=== PATIENT | male | born 1935 | race Caucasian/White ===

== ENCOUNTER 2017-05-18 04:52 | Emergency (ER) | payer MEDICARE, SELFPAY ==
[2017-05-18 04:53] VITALS: BP 163/90; PULSE 68; RESP 20; TEMP 36.5; O2SAT 95; BMI 25.8
[2017-05-18] MEDS: Lidocaine Jelly 2% 20 ML Syringe (URO-JET) 20 APPLIC TOPICAL (05:38)
[2017-05-18 05:39] LABS: International Normalized Ratio 1.1; Prothrombin Time (Protime)PT. 13.7 SECONDS (11.7-14.9)
[2017-05-18 05:40] LABS: Partial Thromboplast Time 29.5 Seconds (24.1-36.2)
[2017-05-18 05:42] LABS: Absolute Lymphocyte Count 1.53 X10^3/ul (0.83-4.51); Absolute Neutrophil Count 4.3 X10^3/uL (2.0-7.7); Basophil# 0.07 X10^3/uL; Eosinophil# 0.19 X10^3/uL; Eosinophils% 2.8 % (0-5); Hematocrit 44.1 % (40-54); Hemoglobin 14.6 g/dl (13.0-16.5); Lymphocyte # 1.53 X10^3/ul (4.0); Lymphocyte % 22.7 % (19-41); Mean Corp Hgb Conc 33.1 g/gl (32-36); Mean Corpuscular Hgb 31.9 pg (27.0-32.0); Mean Corpuscular Volume 96.3 fL (80-94); Mean Platelet Vol. 9.8 fl (6.2-12.0); Monocyte# 0.63 X10^3/uL; Monocyte% 9.3 % (0-10); Neutrophil # 4.29 X10^3/uL (2.7-7.7); Neutrophil % 63.8 % (47-70); Platelet Count 270 K/mm3 (150-450); RBC Distribution Width CV 13.1 % (11.6-14.6); RBC Distribution Width SD 45.3 fl (35.1-43.9); Red Blood Count 4.58 M/mm3 (4.6-6.2); White Blood Count 6.7 K/mm3 (4.4-11.0)
[2017-05-18 05:43] LABS: Anion Gap 7 (5-15); BUN 19 mg/dL (7-18); BUN/Creat Ratio 20.7 RATIO (10-20); Chloride 106 mmol/L (98-107); Creatinine, Serum 0.92 mg/dL (0.70-1.30); EST Glomerular Filtration Rate 84 mL/min (>60); Est Glom Filt Rate - Afr Amer 102 mL/min (>60); Estimated Creatinine Clearance 59.87 ml/min; Glucose 96 mg/dL (74-106); POSITIVE COUNT NO; POSITIVE DIFFERENTIAL NO; POSITIVE MORPHOLOGY NO; Potassium 3.9 mmol/L (3.5-5.1); Sodium Level 140 mmol/L (136-145)
[2017-05-18 06:02] LABS: Bacteria 0 SEEN /hpf (None Seen); Color, Urine Yellow (Yellow); Glucose, Dipstick Normal (Normal); Ketone-Dipstick Negative (Negative); Leukocyte Esterase-Dipstick 500 /ul (Negative); Mucous, Urine 0 SEEN /hpf (<or=2+); Nitrite-Dipstick Positive (Negative); Occult Blood-Urine 250 /ul (Negative); Protein-Dipstick 30 mg/dl (Negative); Squamous Epithelial Cells - UA 0 SEEN /hpf (0-5); Urine Bilirubin Dipstick Negative (Negative); Urine Clarity Cloudy (Clear); Urine Urobilinogen Normal (Normal)
[2017-05-18 06:08] LABS: Red Blood Cells-Urine > 100 SEEN /hpf (0-5); White Blood Cells >100 SEEN /hpf (0-5)
--- NOTE | 2017-05-18 06:08 | ED.RN ---
DR BOONE AWARE THAT THE PT'S URINE WAS NOT BLOODY,BUT CLOUDY WITH MUCUS AND HENSLEY WAS NOT IRRIGATED. WAS OKAY WITH THAT.
--- NOTE | 2017-05-18 06:09 | ED.DCSUM_ITS ---
- ER Visit Summary Date of Service: 05/18/17 Chief Complaint: Hematuria History of Present Illness: The patient is a [address] Andres and Dr. Tristan lizama. He reports that approximately 3:00 this morning he began passing blood and clots in his urine. Reports that he has had this in the past. States that for quite some time he has had to self cath every 4-5 days. Bladder has been draining well. He states that usually he gets 200 250 mL. The past 2 to times he is gotten 100 mL. Last time he self cath was 3 days ago. Patient complains of a dull suprapubic pain is 3 out of 10 severity. No fever, chills, dysuria, frequency, nausea, or vomiting. Physical Examination: Vitals: Stable. Afebrile. General: Well-nourished and well-developed. Head: Normocephalic atraumatic. Neck: Supple, no lymphadenopathy. No JVD. Nontender. Cardiovascular: Regular rate and rhythm. No murmurs. Respiratory: No respiratory distress. Clear to auscultation bilaterally. Abdominal: Soft, nontender, nondistended, normal bowel sounds. No guarding, rebound, or peritoneal signs. Back: Nontender. Extremities: Nontender, no edema. Skin: Normal color, no rash. Neurologic: Alert and oriented ?3. Cranial nerves II through XII are intact. Normal strength and sensation. Psych: Normal affect. Test Results: CBC is normal. Chem-7 is more for BUN of 19. Coags are normal. UA is nitrite positive and has greater than 100 whites and greater than 100 red blood cells. This was sent for culture. Emergency Department Course and Treatment: Patient had a catheter placed. There was no visible blood in his urine. Patient was given Macrobid p.o. Treatment Plan: She was discussed with Dr. Andres. He will be discharged on Macrobid instructed to follow-up 1 week for another exam. Return to the emergency department for any worsening symptoms. Disposition: To home in improved and stable condition. Impression: 1. UTI. This note was generated with [employer] software. It may contain incorrect words, spelling, and punctuation that were not noted in review of the chart prior to signing ED Disposition - Plan for ED Patient: Chief Complaint: Complaint Instructions: ED UTI Cystitis Male Prescriptions: Nitrofurantoin Macrocrystals [Macrobid] 100 mg PO Q12 #14 capsule Referrals: Hay Andres MD [STAFF PHYSICIAN] - 1 Week
[2017-05-18] MEDS: Nitrofurantoin Macrocrystals 100 MG Capsule PO (06:35)
[2017-05-18 06:54] VITALS: BP 167/75; PULSE 66; RESP 18; O2SAT 97
--- NOTE | 2017-05-18 06:54 | ED.RN ---
HENSLEY DCD AFTER EXPLANATION.PT PAL WITHOUT DISTRESS.
== END 2017-05-18 06:55 | disposition home or self-care (01) ==
PROVIDERS: Emergency Provider Emergency Medicine; Family Provider Family Medicine; PCP Family Medicine
DX: N39.0 Urinary tract infection, site not specified (principal); Z79.899 Other long term (current) drug therapy
CPT/HCPCS: 51702; 80048; 81001; 85025; 85610; 85730; 87077; 87086; 87088; 87186; 99285; A4216

== ENCOUNTER 2018-04-10 03:17 | Emergency (ER) | payer MEDICARE, SELFPAY ==
[2018-04-10 03:18] VITALS: BP 174/74; PULSE 72; RESP 18; TEMP 36.5; O2SAT 94; BMI 25.8
--- NOTE | 2018-04-10 04:10 | ED.VISSUMM ---
- ER Visit Summary Date of Service: 04/10/18 Chief Complaint: Urinary retention History of Present Illness: The patient is a 82 M who presents with possible urinary retention. He has a history of BPH. He states he has had previous laser prostate surgery. He recently has been needing to self catheterize more often. He saw Dr. Andres who he did not feel was doing much so sought a second opinion and saw Dr. Bowen. He was then referred to another urologist in [place] for cystoscopy. He seems to be very fixated on his urine volumes. He states that in the office yesterday they did a bladder scan which showed 330 cc. However when he self catheterize at home he only had about 100 cc out. Therefore he has tried to catheterize several times since then and has only had a smaller amount still be retaining a couple of 100 cc. He complains of some mild lower abdominal pressure. Physical Examination: Afebrile vitals unremarkable Moist mucous membranes Heart regular rate and rhythm Lungs clear Abdomen soft nontender nondistended Test Results: Bladder scan shows only 50-70 cc. Emergency Department Course and Treatment: Patient does not appear to be currently retaining significant urine. I did advise that the bladder scanner could have overestimated his bladder volume. He was advised to follow-up as an outpatient. He understands to return for new or worsening symptoms. He was discharged. Treatment Plan: [] Disposition: Discharge Impression: Medical screening exam Concern for medical condition not found (urinary retention- not found) This note was generated with [employer] dictation software. It may contain incorrect words, spelling, and punctuation that were not noted in review of the chart prior to signing ED Disposition - Plan for ED Patient: Chief Complaint: Complaint Referrals: Alfonzo Bond MD [Primary Care Provider] -
--- NOTE | 2018-04-10 04:13 | ED.DCSUM_ITS ---
- ER Visit Summary Date of Service: 04/10/18 Chief Complaint: Urinary retention History of Present Illness: The patient is a 82 M who presents with possible urinary retention. He has a history of BPH. He states he has had previous laser prostate surgery. He recently has been needing to self catheterize more often. He saw Dr. Andres who he did not feel was doing much so sought a second opinion and saw Dr. Bowen. He was then referred to another urologist in [place] for cystoscopy. He seems to be very fixated on his urine volumes. He states that in the office yesterday they did a bladder scan which showed 330 cc. However when he self catheterize at home he only had about 100 cc out. Therefor e he has tried to catheterize several times since then and has only had a smaller amount still be retaining a couple of 100 cc. He complains of some mild lower abdominal pressure. Physical Examination: Afebrile vitals unremarkable Moist mucous membranes Heart regular rate and rhythm Lungs clear Abdomen soft nontender nondistended Test Results: Bladder scan shows only 50-70 cc. Emergency Department Course and Treatment: Patient does not appear to be currently retaining significant urine. I did advise that the bladder scanner could have overestimated his bladder volume. He was advised to follow-up as an outpatient. He understands to return for new or worsening symptoms. He was discharged. Treatment Plan: [] Disposition: Discharge Impression: Medical screening exam Concern for medical condition not found (urinary retention- not found) This note was generated with [employer] dictation software. It may contain incorrect words, spelling, and punctuation that were not noted in review of the chart prior to signing ED Disposition - Plan for ED Patient: Chief Complaint: Complaint Referrals: Alfonzo Bond MD [Primary Care Provider] -
--- NOTE | 2018-04-10 04:13 | ED.DEP ---
ED Disposition - Plan for ED Patient: Chief Complaint: Complaint Instructions: ED Retention Urinary Male Referrals: Alfonzo Bond MD [Primary Care Provider] -
== END 2018-04-10 04:27 | disposition home or self-care (01) ==
LOC: ED 03:58
PROVIDERS: Emergency Provider Emergency Medicine; Family Provider Family Medicine; PCP Family Medicine
DX: Z71.1 Person with feared health complaint in whom no diagnosis is made (principal)
CPT/HCPCS: 99282

== ENCOUNTER 2018-09-24 22:47 | Emergency (ER) | payer MEDICARE, SELFPAY ==
[2018-06-24 13:48] VITALS: BMI 25.8
[2018-09-24 22:48] VITALS: BP 158/93; PULSE 73; RESP 16; TEMP 36.6; O2SAT 95; BMI 26.6
--- NOTE | 2018-09-24 23:56 | ED.VISSUMM ---
- ER Visit Summary Date of Service: 09/24/18 Chief Complaint: Foreign body sensation right eye History of Present Illness: The patient is a 82 M who presents with a foreign body sensation in his right eye. He was using a wire brush to remove rust off of a piece of metal. He does wear glasses. He felt like something in his eye but as symptoms continued he presented here for evaluation. He states he has a history of metallic foreign body that required removal. He otherwise has no complaints. He does have some mild blurry vision. Physical Examination: Afebrile vitals unremarkable Normal conjunctive a under gross examination as well as examination using slit-lamp the eyelids were everted there is no foreign body slit-lamp examination with fluorescein shows punctate dye uptake at approximately the 4 to 5 o'clock position on the cornea I do not appreciate any foreign body Extraocular motion intact without pain or palsy Anterior chamber deep and quiet Test Results: Slit-lamp examination as above Emergency Department Course and Treatment: Patient does have a tiny corneal abrasion. We will treat with bacitracin. He was advised that if symptoms continue he should follow-up as an outpatient. He understands to return for new or worsening symptoms. Patient discharged. Treatment Plan: [] Disposition: Discharge Impression: Corneal abrasion This note was generated with [employer] dictation software. It may contain incorrect words, spelling, and punctuation that were not noted in review of the chart prior to signing ED Disposition - Plan for ED Patient: Referrals: Alfonzo Bond MD [Primary Care Provider] -
--- NOTE | 2018-09-24 23:58 | ED.DEP ---
ED Disposition - Plan for ED Patient: Instructions: Corneal Abrasion Referrals: Alfonzo Bond MD [Primary Care Provider] -
[2018-09-25] MEDS: Fluorescein 1 MG STRIP 1 STRIP RIGHT EYE (00:19)
[2018-09-25] MEDS: Tetracaine 0.5% Ophthalmic Bottle 1 DRP RIGHT EYE (00:19)
[2018-09-25 00:21] VITALS: BP 162/75; PULSE 66; O2SAT 95
== END 2018-09-25 00:22 | disposition home or self-care (01) ==
LOC: ED 23:11
PROVIDERS: Emergency Provider Emergency Medicine; Family Provider Family Medicine; PCP Family Medicine
DX: S05.01XA Injury of conjunctiva and corneal abrasion without foreign body, right eye, initial encounter (principal); X58.XXXA Exposure to other specified factors, initial encounter; Y93.9 Activity, unspecified; Y92.9 Unspecified place or not applicable; Y99.9 Unspecified external cause status
CPT/HCPCS: 99283

== ENCOUNTER 2018-12-10 11:19 | Emergency (ER) | payer MEDICARE, SELFPAY ==
[2018-12-10 11:20] VITALS: BP 148/74; PULSE 82; RESP 16; TEMP 36.6; O2SAT 95; BMI 25.9
--- NOTE | 2018-12-10 12:17 | RAD_ITS ---
STUDY: X-RAY - PELVIS AND LEFT HIP REASON FOR EXAM: Male, 83 years old. Increasing pain. No known injury. TECHNIQUE: 3 views of the pelvis and hip. COMPARISON: None. FINDINGS: There is a non-specific bowel gas pattern. Findings suggestive of a prior bilateral inguinal hernia repair. Normal bilateral iliac wings, sacroiliac joints and visualized sacrum. Normal bilateral superior and inferior pubic rami. Normal pubic symphysis. Normal bilateral ischial tuberosities. Normal visualized femoral head. Normal acetabulum. Normal hip joint. Degenerative changes in the lower lumbar spine. RAD/HIP, UNI W/ Pelvis 2-3 Views IMPRESSION: No acute adenopathy is seen. Electronically Signed: Baldomero Nolasco, at 13:17 EDT , Service support ,
--- NOTE | 2018-12-10 13:32 | ED.DCSUM_ITS ---
- ER Visit Summary Date of Service: 12/10/18 Chief Complaint: [Left hip pain] History of Present Illness: The patient is a 83 M [presents the emergency department with pain in his left hip that has had off-and-on for about a year. Patient states that last night he was getting in the bed when he felt a pop in his hip and his actually heard it as well. Patient is complaining of pain with ambulation. At rest he really does not have any pain. Pain mostly with walking or certain movements. Patient states that he has had sciatic nerve issues typically associated with his left side for many years. She is still able to ambulate today but painful. Eyes weakness the extremities. Patient denies any change in bowel or bladder function.] Physical Examination: [HEENT-PERRLA, EOMI. Cranial nerves II through XII grossly intact. TMs clear. Mucous membranes moist. No adenopathy. Cardiovascular-regular rate and rhythm without murmur or ectopy Lungs-clear to auscultation, chest wall stable without crepitus or subcu emphysema Abdomen-normoactive bowel sounds, soft, nontender, no rebound or rigidity, no peritoneal signs. Back exam-no significant tenderness on exam of the lumbar spine or lumbar paraspinal musculature. Extremities-intact ?4, normal range of motion, normal pulses, atraumatic. Left hip-no erythema or warmth noted. Patient has negative straight leg raises. No pain with logrolling. Patient has mild tenderness over the left piriformis muscle. Deep tendon reflexes are plus 2 out of 4 bilaterally at the patella and Achilles. Patient has normal 5 extension bilaterally.] Test Results: [X-rays of the left hip and pelvis obtained were unremarkable.] Emergency Department Course and Treatment: [] Treatment Plan: [Will be treated with [place] for pain and also will be started on a Medrol Dosepak. I suspect likely soft tissue sprain or strain. She will be referred to orthopedics for follow-up.] Disposition: [Discharged home in stable condition.] Impression: [Left hip strain] This note was generated with [employer] software. It may contain incorrect words, spelling, and punctuation that were not noted in review of the chart prior to signing ED Disposition - Plan for ED Patient: Referrals: Alfonzo Bond MD [Primary Care Provider] -
--- NOTE | 2018-12-10 13:35 | DCINST.ED_ITS ---
ED Disposition - Plan for ED Patient: Instructions: Hip Strain Prescriptions: MethylPREDNISolone DosePak [Medrol DosePak] 4 mg PO UD #1 box Prescription Printed Hydrocodone Bitart/Apap 5-325 [[place] 5MG-325MG] 1 tab PO Q4H PRN PRN 2 Days #14 tab PRN Reason: Pain Prescription Printed Referrals: Alfonzo Bond MD [Primary Care Provider] - Gurwinder Glover MD [STAFF PHYSICIAN] - 3-5 Days
== END 2018-12-10 13:45 | disposition home or self-care (01) ==
LOC: ED 13:08
PROVIDERS: Emergency Provider Emergency Medicine; Family Provider Family Medicine; PCP Family Medicine
DX: S76.012A Strain of muscle, fascia and tendon of left hip, initial encounter (principal); X58.XXXA Exposure to other specified factors, initial encounter; Y93.9 Activity, unspecified; Y92.9 Unspecified place or not applicable; Y99.9 Unspecified external cause status; Z87.891 Personal history of nicotine dependence
CPT/HCPCS: 73502; 99282

== ENCOUNTER → 2019-04-05 16:50 | Outpatient (CLI) | payer MEDICARE, SELFPAY ==
--- NOTE | 2019-04-05 16:52 | CT_ITS ---
STUDY: CT CHEST WITHOUT CONTRAST REASON FOR EXAM: Male, 83 years old. Pulmonary nodule RADIATION DOSAGE (If Supplied By Facility): CTDIvol = ( 10.90 ) mGy, DLP = ( 370.57 ) mGycm TECHNIQUE: Transaxial imaging was performed without the administration of intravenous contrast material. Individualized dose optimization techniques were used for this CT. COMPARISON: None. FINDINGS: There is a 6.8 mm, noncalcified, pleural-based nodule within the anterior inferior right middle lobe, sequence 4, image 92. There is diffuse, centrilobular emphysema with hyperexpansion. There is mild bibasilar dependent atelectasis. There is a approximately 1.1 cm region of focal, ill-defined, groundglass opacity within the lateral basal segment left lower lobe, sequence 4, image 88. There is adjacent/surrounding vague alveolar opacification. Linear density originating from this finding extends to touch the nonthickened posterolateral pleura. There is a 1.2 cm, peripheral, pleural-based pneumatocele versus pulmonary cyst within the posterior medial left lower lobe, sequence 4, image 81. There is no pleural effusion. There is no pneumothorax. Normal heart and pericardium. There are a few, scattered, multistation mediastinal lymph nodes. Some are partially fatty replaced. None appear Pathologic by application of strict size criteria. There is no pathologic hilar adenopathy on this nonenhanced exam. Normal unenhanced pulmonary arteries. Multifocal calcified plaque is seen throughout the aorta. There is no acute osseous abnormality. There is no suspicious lytic or blastic osseous finding. Throughout the upper abdomen the only finding demonstrated is nonspecific mild perinephric stranding, probably age-related. CT/Chest without Contrast IMPRESSION: Centrilobular emphysema. Mild bibasilar dependent atelectasis versus pleural-parenchymal fibrosis. Nonspecific, subcentimeter, noncalcified, pleural-based right middle lobe nodule. Please see above. Finding involving the lateral basal segment of the left lower lobe appears consistent with focal fibrosis. An aggressive process is not excluded. Follow-up is therefore highly recommended. No pleural effusion. No pneumothorax. No pathologic adenopathy identified. Recommendation: I recommend follow-up in 3-6 months to document stability. Electronically Signed: Gio Marie MD at 9:40 EST , Service support ,
== END ==
PROVIDERS: Family Provider Family Medicine; PCP Family Medicine; Referring Provider Family Medicine; Visit Provider Family Medicine
DX: R91.1 Solitary pulmonary nodule (principal)
CPT/HCPCS: 71250

== ENCOUNTER 2019-04-25 06:19 | Emergency (ER) | payer MEDICARE, SELFPAY ==
[2019-04-25 06:20] VITALS: PULSE 80; RESP 16; TEMP 36.3; O2SAT 97; BMI 24.7
[2019-04-25 06:24] VITALS: BP 159/85
--- NOTE | 2019-04-25 06:50 | ED.VISSUMM ---
- ER Visit Summary Date of Service: 04/25/19 Chief Complaint: [Concern for possible urinary tract infection.] History of Present Illness: The patient is a 83 M [presents to the emergency department with complaint of pressure in his bladder. Patient states that normally he has to cath himself about once a week but over the last several days he has been doing it every 2 days or so. Patient feels like he has been drinking a lot of water but not making as much urine and when he caths himself today he noted that the urine appeared cloudy. Patient is concerned that he may have a urinary tract infection. Other than his bladder not working right patient states he really has no medical history. He has had no fevers. He has had no vomiting.] Physical Examination: [HEENT-PERRLA, EOMI. Cranial nerves II through XII grossly intact. TMs clear. Mucous membranes moist. No adenopathy. Cardiovascular-regular rate and rhythm without murmur or ectopy Lungs-clear to auscultation, chest wall stable without crepitus or subcu emphysema Abdomen-normoactive bowel sounds, soft. Patient has some mild suprapubic tenderness on palpation. There is no rebound, rigidity, or pedal signs. Extremities-intact ?4, normal range of motion, normal pulses, atraumatic] Test Results: [Bladder scan obtained showed 190 cc of urine.] CBC with differential obtained showing a 5.7, hemoglobin 14.7, hematocrit 44, platelets 244. Chemistries unremarkable. Urinalysis was positive for 500 leukocyte esterase as well as nitrites and 25-50 WBCs and +1 bacteria. Emergency Department Course and Treatment: [Patient received Rocephin 1 g IV as well as 1 dose of Azo p.o.] Treatment Plan: [Patient will be treated with Bactrim and Pyridium. Patient had a urine culture sent. Patient vies to follow-up with primary care physician or his urologist in 3 to 5 days.] Disposition: [Discharged home in stable condition] Impression: [Urinary tract infection] This note was generated with [employer] software. It may contain incorrect words, spelling, and punctuation that were not noted in review of the chart prior to signing ED Disposition - Plan for ED Patient: Referrals: Jasvir Brock MD [Primary Care Provider] -
[2019-04-25 06:52] LABS: Mucous, Urine 0 SEEN /hpf (<or=2+)
[2019-04-25 06:55] LABS: Absolute Lymphocyte Count 1.15 X10^3/uL (0.83-4.51); Absolute Neutrophil Count 3.9 X10^3/uL (2.0-7.7); Basophil# 0.06 X10^3/uL; Eosinophil# 0.11 X10^3/uL; Eosinophils% 1.9 % (0-5); Hematocrit 44.1 % (40-54); Hemoglobin 14.7 g/dL (13.0-16.5); Lymphocyte # 1.15 X10^3/ul (4.0); Mean Corp Hgb Conc 33.3 g/dL (32-36); Mean Corpuscular Hgb 32.1 pg (27.0-32.0); Mean Corpuscular Volume 96.3 fL (80-94); Mean Platelet Vol. 9.5 fl (6.2-12.0); Monocyte# 0.53 X10^3/uL; Monocyte% 9.2 % (0-10); NRBC Flagged by Analyzer 0 % (0-5); Neutrophil # 3.85 X10^3/uL (2.7-7.7); Neutrophil % 67.2 % (47-70); Platelet Count 244 K/mm3 (150-450); RBC Distribution Width CV 12.3 % (11.6-14.6); RBC Distribution Width SD 43.8 fl (35.1-43.9); Red Blood Count 4.58 M/mm3 (4.6-6.2); White Blood Count 5.7 K/mm3 (4.4-11.0)
[2019-04-25 07:08] LABS: Anion Gap 6 (5-15); BUN 24 mg/dL (7-18); BUN/Creat Ratio 23.1 RATIO (10-20); Chloride 108 mmol/L (98-107); Creatinine, Serum 1.04 mg/dL (0.70-1.30); EST Glomerular Filtration Rate 73 mL/min (>60); Est Glom Filt Rate - Afr Amer 88 mL/min (>60); Estimated Creatinine Clearance 52.98 ml/min; Glucose 99 mg/dL (74-106); Sodium Level 140 mmol/L (136-145)
[2019-04-25 07:10] LABS: Color, Urine Yellow (Yellow); Glucose, Dipstick Normal (Normal); Ketone-Dipstick Negative (Negative); Leukocyte Esterase-Dipstick 500 /ul (Negative); Nitrite-Dipstick Positive (Negative); Occult Blood-Urine 25 /ul (Negative); Protein-Dipstick 30 mg/dl (Negative); Urine Bilirubin Dipstick Negative (Negative); Urine Clarity Clear (Clear); Urine Urobilinogen Normal (Normal)
[2019-04-25 07:17] LABS: Red Blood Cells-Urine 10-25 SEEN /hpf (0-5); White Blood Cells 25-50 SEEN /hpf (0-5)
[2019-04-25 07:18] LABS: Bacteria 1+ /hpf (None Seen); Squamous Epithelial Cells - UA 0-5 SEEN /hpf (0-5)
--- NOTE | 2019-04-25 07:21 | DCINST.ED_ITS ---
ED Disposition - Plan for ED Patient: Instructions: Bladder Infection, Male (Adult) Prescriptions: Smz/Tmp Ds [Bactrim Ds] 1 tab PO BID #14 tab [facility]: [id number] Phenazopyridine HCl [Pyridium] 200 mg PO BID PRN PRN #10 tab PRN Reason: Pain Transmission Status[id number] Referrals: Jasvir Brock MD [Primary Care Provider] - 3-5 Days Hay Andres MD [STAFF PHYSICIAN] - 3-5 Days
[2019-04-25] MEDS: Ceftriaxone 1 GM/50 ML BAG IV (07:36)
[2019-04-25] MEDS: Phenazopyridine 95 MG Tablet 190 MG PO (07:40)
[2019-04-25 07:52] VITALS: PULSE 78; RESP 16; O2SAT 100
== END 2019-04-25 07:53 | disposition home or self-care (01) ==
LOC: ED 06:55
PROVIDERS: Emergency Provider Emergency Medicine; PCP Family Medicine
DX: N39.0 Urinary tract infection, site not specified (principal)
CPT/HCPCS: 80048; 81001; 85025; 87086; 87088; 87186; 96365; 99284; A4216

== ENCOUNTER → 2019-06-30 11:48 | Outpatient (CLI) | payer MEDICARE, SELFPAY ==
--- NOTE | 2019-06-30 11:51 | RAD_ITS ---
STUDY: X-RAY CHEST REASON FOR EXAM: Male, 83 years old. COPD exacerbation -- back pain TECHNIQUE: PA and lateral views of the chest. COMPARISON: None. FINDINGS: There is hyperinflation of the lungs consistent with chronic obstructive lung disease (COPD). There is no demonstrated pleural abnormality. Normal size heart. Normal mediastinum and mercy. Normal visualized pulmonary arteries. There is atherosclerotic calcification of the aortic arch with tortuosity. There are degenerative changes of the visualized thoracic spine. Normal visualized ribs, clavicles, and shoulders. There is no demonstrated abnormality of the visualized soft tissue structures of the upper abdomen. RAD/Chest PA and Lateral IMPRESSION: Hyperinflation. Electronically Signed: Baldomero Nolasco, at 15:51 EDT , Service support ,
== END ==
PROVIDERS: PCP Family Medicine; Referring Provider Family Medicine; Visit Provider Family Medicine
DX: J44.1 Chronic obstructive pulmonary disease with (acute) exacerbation (principal)
CPT/HCPCS: 71046

== ENCOUNTER → 2019-09-22 11:15 | Outpatient (CLI) | payer MEDICARE, SELFPAY ==
--- NOTE | 2019-09-22 11:18 | RAD_ITS ---
STUDY: X-RAY - LEFT ANKLE REASON FOR EXAM: Male, 83 years old. PAIN STARTED IN MEDIALLY LEFT HEEL AND KNOW IS WORKING AROUND TO LEFT ANKLE MEDIALLY FOR A COUPLE OF MONTHS NOW. NO KNOWN INJURY. TECHNIQUE: 4 view(s) of the ankle. COMPARISON: None. FINDINGS: There is remote nonunited small avulsion fracture of the medial malleolus tip. Remainder of the bones are intact and located. Joint spaces preserved. Soft tissues are unremarkable. RAD/Ankle min 3 Views IMPRESSION: Small remote nonunited medial malleolar fracture. Electronically Signed: Maggi Marc, at 16:51 EDT Tel , Service support ,
== END ==
PROVIDERS: PCP Family Medicine; Referring Provider Family Medicine; Visit Provider Family Medicine
DX: M25.572 Pain in left ankle and joints of left foot (principal)
CPT/HCPCS: 73610

== ENCOUNTER 2019-10-09 15:01 | Emergency (ER) | payer MEDICARE, SELFPAY ==
[2019-10-09 15:02] VITALS: BP 156/80; PULSE 77; RESP 18; TEMP 36.6; O2SAT 96; BMI 25.0
--- NOTE | 2019-10-09 15:15 | CT_ITS ---
STUDY: CT ABDOMEN AND PELVIS WITHOUT CONTRAST REASON FOR EXAM: Male, 83 years old. Right-sided flank pain RADIATION DOSAGE (If Supplied By Facility): CTDIvol = ( 8.76 ) mGy, DLP = ( 404.87 ) mGycm TECHNIQUE: Transaxial images were obtained from the dome of the diaphragm to the symphysis pubis without oral contrast, and without intravenous contrast. Sagittal and coronal images were reconstructed. Individualized dose optimization techniques were used for this CT. COMPARISON: None. FINDINGS: The visualized portions of lung bases demonstrate COPD changes. There is mild stranding/scarring worse in the left lower lung. The visualized portions of the heart are within normal limits. Normal liver. There is no evidence of gallstones. There is questionable small tiny calcification or stone in the common hepatic duct measuring about 1 or 2 mm. Normal spleen. Normal pancreas. Normal bilateral adrenal glands. There is mild bilateral perinephric stranding. There are small bilateral renal cysts in the lower pole, the largest of the left side measuring about 2.2 cm. There is no evidence of hydronephrosis no abnormal calcifications are seen in the kidneys or the expected courses of the ureters bilaterally. Normal visualized stomach. There are nonspecific fluid-filled small bowel loops on the left side of the abdomen. There is no evidence of bowel obstruction. There is diverticulosis of the colon. There is no evidence of acute diverticulitis. The colon is suboptimally distended. The appendix is visualized and appears normal. There is diffuse atherosclerotic calcification of the abdominal aorta with elongation and tortuosity, but without a demonstrated aneurysm. Normal inferior vena cava. Normal retroperitoneum. There is focal bulging of the right lateral wall of the bladder which may be due to small bladder diverticulum. There are prostatic calcifications. Metallic clips are seen in the lower anterior abdominal wall about the level of the symphysis pubis. There are diffuse degenerative changes of the visualized lumbar spine. CT/Abdomen/Pelvis without Cont IMPRESSION: 1. Nonspecific bilateral perinephric stranding without evidence of hydronephrosis or ureteral stones. The findings can be seen in pyelonephritis. 2. Small bilateral renal cysts. 3. Diverticulosis without evidence of acute diverticulitis. 4. No evidence of acute appendicitis. 5. Questionable small tiny calcification in the region of the common hepatic duct. Electronically Signed: Samuel Gustafson MD at 16:37 EDT Tel , Service support ,
--- NOTE | 2019-10-09 15:16 | ED.VIS.GEN ---
History of Present Illness Chief Complaint: Flank Pain Informant: Patient Onset: Today Context: Gradual Onset Current Severity: Mild Maximum Severity: Moderate Narrative: Patient presents secondary to right flank pain. He points to the right lower flank and states it wraps into the right lower quadrant of his abdomen. Pain was present when he woke this morning. He denies any recent injury or change in activity. He did have similar pain about a week ago that spontaneously resolved. He denies urinary symptoms. He is concerned because his brother had similar symptoms and had appendicitis. Patient does report history of BPH. He does intermittently self cath. He denies fever or dysuria. - Past Medical History (1) GERD (gastroesophageal reflux disease) Status: Chronic (2) BPH (benign prostatic hyperplasia) Status: Chronic Past Medical History - Allergies and Home Meds Allergies/Adverse Reactions: Allergies ciprofloxacin [From Cipro] Allergy (Unknown, Verified 10/09/19 15:04) unknown bee venom protein (honey bee) Allergy (Verified 10/09/19 15:04) Other Primary Care Physician: Jasvir Brock MD [Primary Care Provider] - Prior records reviewed: Yes Lives: Spouse/ Significant Other Smoking Status: Former smoker Review of Systems General: Denies: Chills, Fever Eyes: Denies: Visual changes - bilaterally ENT: Denies: Bilateral ear pain Cardiovascular: Denies: Chest pain Respiratory: Denies: Dyspnea, Cough Gastrointestinal: Reports: Abdominal pain. Denies: Nausea, Vomiting, Diarrhea Genitourinary: Denies: Dysuria, Frequency Musculoskeletal: Denies: Swelling, Extremity Pain Neurological: Denies: Headache Hematologic: Denies: Easy bruising, Easy bleeding Allergy: Denies: Uticaria Physical Exam Vital Signs/Narrative: Vital Signs Temp Pulse Resp BP Pulse Ox 10/09/19 15:02 98 F 77 18 156/80 H 96 Inital Vital Signs reviewed: Yes General: Well nourished, Well developed Head: Normocephalic ENT: Moist mucous membranes Neck: Supple Cardiovascular: Regular rate, Regular rhythm Respiratory: No distress, CTA bilaterally Abdomen: Soft, Nontender, Hypoactive bowel sounds Back: - - Tenderness in the right lateral lumbar paraspinal region. No overlying skin changes. Extremities: Nontender Skin: Normal color Neurological: Alert, Oriented x3 Psychological: Normal affect Diagnostic/Tx/Re-eval Impressions Abdomen/Pelvis CT 10/09/19 15:15 IMPRESSION: 1. Nonspecific bilateral perinephric stranding without evidence of hydronephrosis or ureteral stones. The findings can be seen in pyelonephritis. 2. Small bilateral renal cysts. 3. Diverticulosis without evidence of acute diverticulitis. 4. No evidence of acute appendicitis. 5. Questionable small tiny calcification in the region of the common hepatic duct. Electronically Signed: Samuel Gustafson MD at 16:37 EDT Tel , Service support , 10/09/19 15:15 Abdomen/Pelvis without Cont [CT] Stat Laboratory Results 10/09/19 10/09/19 10/09/19 15:45 15:45 15:53 WBC 8.0 RBC 4.51 L Hgb 14.3 Hct 44.0 MCV 97.6 H MCH 31.7 MCHC 32.5 RDW Std Deviation 46.3 H RDW Coeff of Isiah 13.1 Plt Count 248 MPV 9.9 Immature Gran % (Auto) 0.300 Neut % (Auto) 72.3 H Lymph % (Auto) 17.3 L [place] % (Auto) 7.9 Eos % (Auto) 1.4 Baso % (Auto) 0.8 Absolute Neuts (auto) 5.8 Absolute Lymphs (auto) 1.38 Nucleated RBC % 0 Sodium 139 Potassium 3.9 Chloride 109 H Carbon Dioxide 26.0 Anion Gap 4 L BUN 30 H Creatinine 0.92 Estim Creat Clear Calc 57.88 Est GFR (MDRD) Af Amer 101 Est GFR (MDRD) Non-Af 83 BUN/Creatinine Ratio 32.5 H Glucose 99 Calcium 8.7 Urine Color Yellow Urine Clarity Sl. Cloudy Urine pH 5.0 Ur Specific [place] 1.020 Urine Protein Negative Urine Glucose (UA) Normal Urine Ketones Negative Urine Occult Blood 10 H Urine Nitrite Negative Urine Bilirubin Negative Urine Urobilinogen Normal Ur Leukocyte Esterase 100 H Urine RBC 0-5 SEEN Urine WBC 25-50 SEEN Ur Squamous Epith Cells 0-5 SEEN Urine Bacteria 0 SEEN Urine Mucus 0 SEEN - Medical Decision Making Patient declined anything for pain while here. Test results are discussed with patient and at bedside. He does have some white blood cells noted, however 0 bacteria are noted. This may be inflammatory change from periodic self cath. Patient is reassured that there is no sign of appendicitis or kidney stone. He will continue to monitor his symptoms and return if worsened. ED Disposition - Plan for ED Patient: Disposition: Home or Assisted Living Diagnosis: Flank pain Instructions: ED Flank Pain Uncertain Cause Referrals: Jasvir Brock MD [Primary Care Provider] - 3-5 Days if not improving
[2019-10-09 15:50] LABS: Absolute Lymphocyte Count 1.38 X10^3/uL (0.83-4.51); Absolute Neutrophil Count 5.8 X10^3/uL (2.0-7.7); Basophil# 0.06 X10^3/uL; Basophil% 0.8 % (0-1); Eosinophil# 0.11 X10^3/uL; Eosinophils% 1.4 % (0-5); Hemoglobin 14.3 g/dL (13.0-16.5); Lymphocyte # 1.38 X10^3/ul (4.0); Lymphocyte % 17.3 % (19-41); Mean Corp Hgb Conc 32.5 g/dL (32-36); Mean Corpuscular Hgb 31.7 pg (27.0-32.0); Mean Corpuscular Volume 97.6 fL (80-94); Mean Platelet Vol. 9.9 fl (6.2-12.0); Monocyte# 0.63 X10^3/uL; Monocyte% 7.9 % (0-10); NRBC Flagged by Analyzer 0 % (0-5); Neutrophil % 72.3 % (47-70); Platelet Count 248 K/mm3 (150-450); RBC Distribution Width CV 13.1 % (11.6-14.6); RBC Distribution Width SD 46.3 fl (35.1-43.9); Red Blood Count 4.51 M/mm3 (4.6-6.2)
[2019-10-09 16:02] LABS: Bacteria 0 SEEN /hpf (None Seen); Mucous, Urine 0 SEEN /hpf (<or=2+)
[2019-10-09 16:03] LABS: Anion Gap 4 (5-15); BUN 30 mg/dL (7-18); BUN/Creat Ratio 32.5 RATIO (10-20); Calcium,Total 8.7 mg/dL (8.5-10.1); Chloride 109 mmol/L (98-107); Creatinine, Serum 0.92 mg/dL (0.70-1.30); EST Glomerular Filtration Rate 83 mL/min (>60); Est Glom Filt Rate - Afr Amer 101 mL/min (>60); Estimated Creatinine Clearance 57.88 ml/min; Glucose 99 mg/dL (74-106); Potassium 3.9 mmol/L (3.5-5.1); Sodium Level 139 mmol/L (136-145)
[2019-10-09 16:09] LABS: Color, Urine Yellow (Yellow); Glucose, Dipstick Normal (Normal); Ketone-Dipstick Negative (Negative); Leukocyte Esterase-Dipstick 100 /ul (Negative); Nitrite-Dipstick Negative (Negative); Occult Blood-Urine 10 /ul (Negative); Protein-Dipstick Negative (Negative); Urine Bilirubin Dipstick Negative (Negative); Urine Clarity Sl. Cloudy (Clear); Urine Urobilinogen Normal (Normal)
[2019-10-09 16:17] LABS: Red Blood Cells-Urine 0-5 SEEN /hpf (0-5); Squamous Epithelial Cells - UA 0-5 SEEN /hpf (0-5); White Blood Cells 25-50 SEEN /hpf (0-5)
[2019-10-09 16:19] VITALS: BP 156/80; PULSE 77; RESP 18; TEMP 36.6; O2SAT 96
[2019-10-09 17:28] VITALS: BP 156/82; PULSE 68; RESP 18; TEMP 37; O2SAT 98
== END 2019-10-09 17:30 | disposition home or self-care (01) ==
PROVIDERS: Emergency Provider Emergency Medicine; PCP Family Medicine
DX: R10.31 Right lower quadrant pain (principal); Z87.891 Personal history of nicotine dependence
CPT/HCPCS: 74176; 80048; 81001; 85025; 99283; A4216

== ENCOUNTER → 2019-11-11 10:19 | Outpatient (CLI) | payer MEDICARE, SELFPAY ==
[2019-11-11 12:51] LABS: Absolute Lymphocyte Count 1.25 X10^3/uL (0.83-4.51); Basophil# 0.07 X10^3/uL; Basophil% 1.1 % (0-1); Eosinophil# 0.16 X10^3/uL; Eosinophils% 2.6 % (0-5); Hematocrit 44.4 % (40-54); Hemoglobin 14.1 g/dL (13.0-16.5); Lymphocyte # 1.25 X10^3/ul (4.0); Lymphocyte % 20.5 % (19-41); Mean Corp Hgb Conc 31.8 g/dL (32-36); Mean Corpuscular Hgb 31.8 pg (27.0-32.0); Mean Platelet Vol. 10.6 fl (6.2-12.0); Monocyte# 0.62 X10^3/uL; Monocyte% 10.2 % (0-10); NRBC Flagged by Analyzer 0 % (0-5); Neutrophil # 3.96 X10^3/uL (2.7-7.7); Neutrophil % 64.9 % (47-70); Platelet Count 261 K/mm3 (150-450); RBC Distribution Width CV 13.3 % (11.6-14.6); RBC Distribution Width SD 48.9 fl (35.1-43.9); Red Blood Count 4.44 M/mm3 (4.6-6.2); White Blood Count 6.1 K/mm3 (4.4-11.0)
[2019-11-11 12:52] LABS: Erythrocyte Sedimentation Rate 23 mm/hr (0-20)
[2019-11-11 13:11] LABS: Albumin, Serum 3.6 g/dL (3.2-5.0); BUN 29 mg/dL (7-18); BUN/Creat Ratio 32.6 RATIO (10-20); Creatinine, Serum 0.89 mg/dL (0.70-1.30); EST Glomerular Filtration Rate 87 mL/min (>60); Est Glom Filt Rate - Afr Amer 105 mL/min (>60); Glucose 97 mg/dL (74-106); Protein, Total 7.7 g/dL (6.4-8.2)
[2019-11-11 13:12] LABS: ALB/GLOB Ratio 0.9 RATIO (0.9-2.4); AST(SGOT) 25 U/L (15-37); Alanine Aminotransfer ALT/SGPT 26 U/L (16-61); Alkaline Phosphatase 54 U/L (45-117); Anion Gap 4 (5-15); Calcium,Total 9.1 mg/dL (8.5-10.1); Chloride 108 mmol/L (98-107); Globulin 4.1 g/dL (2.2-4.2); PSA,Total - Annual Screen 9.12 ng/mL (0.00-4.00); Potassium 4.1 mmol/L (3.5-5.1); Sodium Level 141 mmol/L (136-145); Thyroid Stim Hormone (TSH) 1.45 uIU/mL (0.358-3.74)
== END ==
PROVIDERS: PCP Family Medicine; Referring Provider Family Medicine; Visit Provider Family Medicine
DX: R63.4 Abnormal weight loss (principal); Z12.5 Encounter for screening for malignant neoplasm of prostate
CPT/HCPCS: 36415; 80053; 84153; 84443; 85025; 85652; 86140; G0103

== ENCOUNTER → 2019-12-29 | Outpatient (CLI) | payer MEDICARE, SELFPAY | END | disposition home or self-care (01) | LOC: LABSPEC 11:47 | PROVIDERS: PCP Family Medicine; Referring Provider Nurse Practitioner Adult Health; Visit Provider Nurse Practitioner Adult Health | DX: R30.0 Dysuria (principal) | CPT/HCPCS: 87077; 87086; 87088; 87186 ==

== ENCOUNTER 2020-01-09 06:15 | Inpatient (IN) | payer MEDICARE, SELFPAY ==
[2020-01-09] VITALS (37 sets, daily range): BP systolic 137–171; BP diastolic 7–136; PULSE 55–80; RESP 12–96; TEMP 36.2–36.8; O2SAT 93–100; BMI 25.2; BMI 25.3
--- NOTE | 2020-01-09 06:18 | CT_ITS ---
We are attempting to reach an attending provider to discuss findings. An addendum with communication details will be sent when the communication is complete. STUDY: CT BRAIN WITHOUT CONTRAST REASON FOR EXAM: Male, 84 years old. Stroke, left-sided deficit, weakness. RADIATION DOSAGE (If Supplied By Facility): CTDIvol = ( 44.99 ) mGy, DLP = ( 796.11 ) mGycm TECHNIQUE: Transaxial CT imaging of the brain was performed without administration of intravenous contrast material. Individualized dose optimization techniques were used for this CT. COMPARISON: No relevant priors. FINDINGS: Normal soft tissue structures. Normal calvarium. Normal size ventricles and extra-axial spaces for the patient''s age. Normal white matter tracts of the cerebral hemispheres. Small old lacunar infarction head of the caudate nucleus on the right. Normal thalami. Normal brainstem. Normal cerebellum. There is no intracranial hemorrhage. There are no findings of an acute ischemic infarction. Normal visualized paranasal sinuses. CT/Brain/Head without Contrast IMPRESSION: No acute intracranial abnormality. Old right basal ganglia lacunar infarction. If there is a high clinical suspicion of an acute infarction and further imaging is warranted, recommend MRI. Electronically Signed: Haroon Shah MD at 6:35 EDT , Service support ,
--- NOTE | 2020-01-09 06:18 | RAD_ITS ---
STUDY: X-RAY CHEST REASON FOR EXAM: Male, 84 years old. left sided weakness, stroke TECHNIQUE: AP COMPARISON: 06/30/2019 FINDINGS: EKG leads project over the chest. The lungs are clear and expanded. There is no demonstrated pleural abnormality. Normal size heart. Normal mediastinum and mercy. Normal visualized pulmonary arteries. Normal visualized aortic arch and descending thoracic aorta. Normal visualized thoracic spine. There is degenerative osteoarthritis of the bilateral shoulders. There is no demonstrated abnormality of the visualized soft tissue structures of the upper abdomen. RAD/Chest 1 View IMPRESSION: Stable, nonacute portable x-ray examination of the chest. Electronically Signed: Mansoor Graham MD ([facility]) at 8:00 EDT , Service support ,
--- NOTE | 2020-01-09 06:18 | EKG12_ITS ---
Test Reason : STROKE Blood Pressure : / mmHG Vent. Rate : 069 BPM Atrial Rate : 069 BPM P-R Int : 126 ms QRS Dur : 104 ms QT Int : 404 ms P-R-T Axes : 053 035 048 degrees QTc Int : 432 ms Normal sinus rhythm Normal ECG Confirmed by FREDY VILLATORO, MARIXA ([id number]), acquisition editor TAISHA BRAGA ([id number]) on 01/11/2020 10:09:14 AM Referred By: MILAD Confirmed By:MARIXA DANIEL MD
--- NOTE | 2020-01-09 06:20 | ED.VISSUMM ---
- ER Visit Summary Date of Service: 01/09/20 Chief Complaint: Left arm paralysis and left leg weakness History of Present Illness: The patient is a 84 M denies any significant past medical history other than prior TURP procedure. Patient denies being on any current medications. No prior stroke cardiac history. Patient states that he got up around 330 this morning to use the restroom and was fine at that time. He woke up again around 530 and could not use his left arm and had numbness to his left leg and trouble with his speech. This was verified by the paramedics. Physical Examination: Older male. H EENT exam pupils round reactive light. He is a mild left facial droop. Neck nontender. Lungs clear to auscultation bilaterally. Heart regular rate and rhythm no murmur. Chest were nontender. Abdomen soft nontender. Patient is paralyzed and numb in his left arm. He states he has decreased sensation in his left leg but normal strength. Right upper and right lower extremity have normal range of motion and sensation. Neurologically he is awake and alert. He answers questions and follows commands. He has decreased speech and trouble finding words at times. But the words are audible. He has a mild left facial droop. Is a paralyzed left arm he cannot move at all. And he has decreased sensation in his left leg. Test Results: 1 CBC normal white count of 5. Hemoglobin 14. Chemistries normal creatinine 0.9 normal gap. PT/INR normal. Troponin normal. EKG normal sinus rhythm rate of 69 no acute signs of dysrhythmia nor ischemia. CAT scan of his head done without contrast shows no acute abnormality. Old right lacunar basal ganglier infarct. This was read by the radiologist and reviewed by me. I discussed the CAT scan results with the radiologist and the stroke neurologist. Stroke neurologist also reviewed the CAT scan. Emergency Department Course and Treatment: Paramedics called prior to the patient's arrival stroke team was assembled on his arrival and initiated. After brief evaluation he was taken directly to CAT scan. Treatment Plan: Given the patient's history, exam and NIH score the patient was treated with TPA. Prior to receiving the TPA he did get a dose of IV labetalol for his hypertension. I discussed his care with the stroke neurologist from [facility] we are both in agreement. I also discussed treatment options and risks with the patient and his family. His is a former help desk operator and the patient's son and the patient all agree with TPA therapy. Disposition: Admission Impression: Acute stroke with left arm paralysis and left leg weakness Acute hypertension This note was generated with [employer] dictation software. It may contain incorrect words, spelling, and punctuation that were not noted in review of the chart prior to signing
[2020-01-09] MEDS: Labetalol (Prefilled) 20 MG/4 ML IV (06:47)
[2020-01-09 06:56] LABS: Absolute Lymphocyte Count 1.63 X10^3/uL (0.83-4.51); Absolute Neutrophil Count 3.5 X10^3/uL (2.0-7.7); Basophil# 0.05 X10^3/uL; Basophil% 0.8 % (0-1); Eosinophil# 0.17 X10^3/uL; Eosinophils% 2.9 % (0-5); Hematocrit 43.9 % (40-54); Hemoglobin 14.2 g/dL (13.0-16.5); Lymphocyte # 1.63 X10^3/ul (4.0); Lymphocyte % 27.7 % (19-41); Mean Corp Hgb Conc 32.3 g/dL (32-36); Mean Corpuscular Hgb 31.7 pg (27.0-32.0); Mean Platelet Vol. 9.7 fl (6.2-12.0); Monocyte# 0.53 X10^3/uL; NRBC Flagged by Analyzer 0 % (0-5); Neutrophil # 3.48 X10^3/uL (2.7-7.7); Neutrophil % 59.1 % (47-70); Platelet Count 249 K/mm3 (150-450); RBC Distribution Width SD 46.5 fl (35.1-43.9); Red Blood Count 4.48 M/mm3 (4.6-6.2); White Blood Count 5.9 K/mm3 (4.4-11.0)
[2020-01-09 07:04] LABS: Anion Gap 5 (5-15); BUN 20 mg/dL (7-18); BUN/Creat Ratio 20.8 RATIO (10-20); Calcium,Total 9.4 mg/dL (8.5-10.1); Chloride 112 mmol/L (98-107); Creatinine, Serum 0.96 mg/dL (0.70-1.30); EST Glomerular Filtration Rate 79 mL/min (>60); Est Glom Filt Rate - Afr Amer 96 mL/min (>60); Estimated Creatinine Clearance 56.41 ml/min; Glucose 104 mg/dL (74-106); Potassium 4.2 mmol/L (3.5-5.1); Sodium Level 141 mmol/L (136-145)
[2020-01-09 07:06] LABS: Prothrombin Time (Protime)PT. 12.8 SECONDS (11.7-14.9)
--- NOTE | 2020-01-09 07:13 | CT_ITS ---
We are attempting to reach an attending provider to discuss findings. An addendum with communication details will be sent when the communication is complete. STUDY: CTA HEAD AND NECK WITH CONTRAST REASON FOR EXAM: Male, 84 years old. STROKE, LEFT SIDE DEFICIT, SLURRED SPEECH RADIATION DOSAGE (If Supplied By Facility): CTDIvol = ( 25.41 ) mGy, DLP = ( 644.15 ) mGycm TECHNIQUE: CT angiography was performed with a multi-detector CT scanner. Data acquisition was obtained from the skull base through the vertex following intravenous administration of IV 100mL Isovue-370. MIP images were reconstructed from the axial data set. Post-processing of the angiographic images was performed, with multiplanar reformation and 3D reconstruction. Individualized dose optimization techniques were used for this CT. COMPARISON: Noncontrast CT scan brain 01/09/2020. FINDINGS: Normal bilateral petrous carotid arteries. There is calcified plaque formation of the right cavernous carotid artery, without a cross-sectional luminal stenosis. There is calcified plaque formation of the left cavernous carotid artery, without a cross-sectional luminal stenosis. Normal right A1 segments of the anterior cerebral artery. Normal left A1 segments of the anterior cerebral artery. Normal intact anterior communicating artery (ACOM). Normal bilateral A2 segments of the anterior cerebral arteries. Normal right M1 and M2 segments of the middle cerebral arteries, with a normal M1 bifurcation. Normal left M1 and M2 segments of the middle cerebral arteries, with a normal M1 bifurcation. There is non-visualization of the right posterior communicating artery (PCOM). Normal left posterior communicating artery (PCOM). There is a relatively small left vertebral artery with a dominant right vertebral artery. Normal basilar artery with a normal basilar bifurcation. The visualized bilateral superior cerebellar (SCA) arteries are normal. Normal bilateral P1, P2 and visualized P3 segments of the posterior cerebral arteries. There is no demonstrated aneurysm of the [place]. There is no demonstrated acute abnormality of the visualized brain. AORTIC ARCH: There is atherosclerotic calcific plaque formation of the aortic arch and great vessels arising from the aortic arch, without a hemodynamically significant stenosis. There is a normal origin of the brachiocephalic, left common carotid, and left subclavian arteries. . RIGHT CAROTID ARTERIES: Normal right common carotid artery (CCA). There is mild atherosclerotic plaque formation with minimal narrowing of the right carotid bulb. There is mild atherosclerotic plaque formation of the origin of the right internal carotid artery with less than 50% cross sectional diameter stenosis. Normal visualized cervical portion of the right internal carotid artery. Normal origin of the right external carotid artery (ECA). LEFT CAROTID ARTERIES: Normal left common carotid artery (CCA). Normal left common carotid bulb. Normal origin of the left internal carotid (ICA) artery without a hemodynamically significant stenosis. Normal visualized cervical portion of the left internal carotid artery. Normal origin of the left external carotid artery (ECA). VERTEBRAL ARTERIES: There is enhancement within the bilateral vertebral arteries with a relatively small left vertebral artery, and a dominant right vertebral artery. CT/CTA Head AND Neck W/ Contrast IMPRESSION: No evidence for hemodynamically significant arterial stenosis, occlusion, or aneurysm. Electronically Signed: Agapito Rueda MD at 7:52 EDT , Service support ,
[2020-01-09 07:15] LABS: Partial Thromboplast Time 26.1 Seconds (24.1-36.2)
--- NOTE | 2020-01-09 07:18 | HP.PCM_ITS ---
History of Present Illness Date of Admission: 01/09/20 Chief Complaint: left arm paralysis and left leg weakness The patient is a 84 year old M with no significant PMH. He was admitted via the ED opn 01/09/2020 with a complaint of left sided weakness. Last known well was around 3:30 AM when he got up to use the bathroom. He was fine at that time. He subsequently woke up again around 5:30 AM and noticed that he could not move his left arm and left leg and also had numbness there. He also had some slurring of his speech. therefore called EMS and he was brought into the ED. On arrival, NIH stroke scale was 11. CT of the brain done was negative for any acute stroke. Tele-stroke neurology was consulted and based on their recommendations and patient's NIH score, patient was started on TPA. On review, vitals show temperature of 97.7 Fahrenheit with blood pressure of 150/78, pulse rate of 56 and respiratory rate of 20. He was saturating at 97% on room air. CBC was unremarkable initial troponin was negative. BMP was also unremarkable. EKG showed no acute ST changes. He has been admitted to be managed for acute CVA. [] Past Medical History Past Medical History (Chronic Problems): Chronic Problems (Last Updated 06/24/18 @ 13:46 by Nyasia Hussein) GERD (gastroesophageal reflux disease) (Chronic) BPH (benign prostatic hyperplasia) (Chronic) Medical History: Medical History (Last Updated 06/24/18 @ 13:46 by Nyasia Hussein) Arthritis M19.90 Allergies ciprofloxacin [From Cipro] Allergy (Unknown, Verified 10/09/19 15:04) unknown bee venom protein (honey bee) Allergy (Verified 10/09/19 15:04) Other Home Medications: Ambulatory Orders Medication Instructions Recorded Vitamin D3/Folic Acid PO DAILY 01/09/20 Surgical History: Surgical History (Last Updated 06/24/18 @ 13:46 by Nyasia Hussein) History of bilateral inguinal hernia repair Z98.890, Z87.19 Surgical History: TURP Psychiatric History: No pertinent psych hx Lives: Spouse/ Significant Other Smoking Status: Former smoker Alcohol: None Drugs: None - *Family History Maternal History Items: No pertinent history Paternal History Items: No pertinent history Review of Systems Constitutional: Denies: Chills, Fever, Malaise, Weakness, Weight Change Eyes: Denies: Blurred vision HEENT: Denies: Head Aches, Sinus Congestion, Sinus Drainage Cardiovascular: Denies: Chest Pain, Palpitations Respiratory: Denies: Cough, Shortness of Breath, Shortness of breath at rest, Shortness of breath upon exertion, Sputum production Gastrointestinal: Denies: Abdominal Pain, Nausea, Vomiting Genitourinary: Denies: Dysuria Musculoskeletal: Denies: Joint Pain, Joint Tenderness Skin: Denies: Rash, Wounds Neurological: Reports: Change in Speech, Slurred speech, Focal weakness, Numbness, Tingling. Denies: Balance problems, Blurred vision Psychiatric: Denies: Anxiety, Depression, Homicidal Ideations, Suicidal Ideations Hematologic/ Lymphatic: Denies: Easy Bruising, Easy Bleeding VTE Information - Inpt Only VTE Present on Admission: No VTE Mechan Device Prophylaxis: SCD's VTE Pharm Prophylaxis ordered?: No Reason prophylaxis not ordered:: Medical Contraindication - patient just received tPA - Physical Exam Vitals/I&O's: Vital Signs Temp Pulse Resp BP Pulse Ox 97.9 F 55 L 17 150/78 H 95 01/09/20 07:05 01/09/20 07:05 01/09/20 07:05 01/09/20 07:05 01/09/20 07:05 Oxygen Delivery Method Room Air Weight: 166 lb 3.657 oz Body Mass Index (BMI) 25.2 Finger Stick Blood Glucose 121 General: Alert, Oriented x3, Cooperative, No apparent distress HEENT: Atraumatic, PERRLA, EOMI, Normocephalic Oral: Moist Mucosa Neck: Supple, No JVD, Negative Carotid Bruits Lungs: Clear to auscultation, Normal air movement, No rhonchi, No wheeze, No rales Cardiovascular: Regular rate, Regular Rhythm, Normal S1, Normal S2, No murmurs Abdomen: Bowel Sounds Present, Soft, Non Tender, Non-Distended, No Hepato- splenomegaly Extremities: No clubbing, No cyanosis, No edema, Capillary Refill Less than 3 Seconds Skin: No rashes, No breakdown Musculoskeletal: No Tenderness to Palpation of Joints or Extremities Lymphatic: No Cervical, Supraclavicular, or Inguinal Adenopathy Neurological: - - has slurring of speech, CN II-XII otherwise intact, has 2/5 power in LUE, with decreased sensation to light touch and pinprick in LUE. NIHSS is 7 at time of review. Patient receiving tPA Psych/Mental Status: Normal Affect, Appropriate, Alert and oriented to time, place, person, mood and affect Laboratory Results 01/09/20 06:35: WBC 5.9, RBC 4.48 L, Hgb 14.2, Hct 43.9, MCV 98.0 H, MCH 31.7, MCHC 32.3, RDW Std Deviation 46.5 H, RDW Coeff of [place]iah 13.0, Plt Count 249, MPV 9.7, Immature Gran % (Auto) 0.500, Neut % (Auto) 59.1, Lymph % (Auto) 27.7, [place] % (Auto) 9.0, Eos % (Auto) 2.9, Baso % (Auto) 0.8, Absolute Neuts (auto) 3.5, Absolute Lymphs (auto) 1.63, Nucleated RBC % 0 01/09/20 06:35: Sodium 141, Potassium 4.2, Chloride 112 H, Carbon Dioxide 24.0, Anion Gap 5, BUN 20 H, Creatinine 0.96, Estim Creat Clear Calc 56.41, Est GFR (MDRD) Af Amer 96, Est GFR (MDRD) Non-Af 79, BUN/Creatinine Ratio 20.8 H, Gluc ose 104, Calcium 9.4, Troponin I < 0.015 01/09/20 06:45: PT 12.8, INR 1.0, APTT 26.[address] 01/09/20 06:18 IMPRESSION: No acute intracranial abnormality. Old right basal ganglia lacunar infarction. If there is a high clinical suspicion of an acute infarction and further imaging is warranted, recommend MRI. Electronically Signed: Haroon Shah MD at 6:35 EDT , Service support , ADDENDUM: 01/09/20 0644 IMPRESSION: No acute intracranial abnormality. Old right basal ganglia lacunar infarction. If there is a high clinical suspicion of an acute infarction and further imaging is warranted, recommend MRI. N.B. : The above information has been verbally conveyed by Haroon Shah MD to Dr. Ezequiel MD, on 01/09/2020 06:37:52 (ET). Electronically Signed: Haroon Shah MD at 6:35 EDT , Service support , Current Medications Acetaminophen (Tylenol) 650 mg PO .X1 PRN PRN Reason: Temp > 99.6 F Diphenhydramine HCl (Benadryl) 50 mg IV .X1 PRN PRN Reason: Allergic Reaction Stop: 01/11/20 06:50 Sodium Chloride () 1,000 mls @ 100 mls/hr IV .Q10H JASKARAN Famotidine 20 mg/ Sodium (Chloride) 10 mls @ 300 mls/hr IV .X1 PRN PRN Reason: Allergic Reaction Stop: 01/11/20 06:50 Nicardipine/Dextrose (Cardene-Dex 20 Mg/200 Ml Soln) 20 mg in 200 mls @ 50 mls/hr IV .Q4H PRN; Protocol PRN Reason: See Instructions Alteplase, Recombinant 61.2 mg (/ N/A) 61.2 mls @ 61.2 mls/hr IV X1 ONE Stop: 01/09/20 07:54 Last Admin: 01/09/20 07:08 Dose: 61.2 mls/hr Documented by: Iopamidol (Contrast Allergy Check) 0 ml IV X1 JASKARNA Labetalol HCl (Trandate) 20 mg IV X1 PRN PRN Reason: BLOOD PRESSURE Last Admin: 01/09/20 06:47 Dose: 20 mg Documented by: Labetalol HCl (Trandate) 20 mg IV X1 PRN; Protocol PRN Reason: BLOOD PRESSURE Methylprednisolone (Solu-Medrol) 125 mg IV .X1 PRN PRN Reason: Allergic Reaction Stop: 01/11/20 06:50 Assessment/Plan 84 y/o male admitted with a complaint of left sided weakness # Acute CVA * NIHSS on admission was 11 * CT of the brain showed no acute intracranial pathology * receivedf tPA per telestroke neurology recommendations * admit to ICU * for MRI of brain 24 hours after administration of tPA * high intensity statin. * consult critical care, since patient is being admitted to ICU * consult neurology * speech therapy evaluation; keep NPO until evaluated by speech therapy * fall precautions. PT/OT consult * check lipid panel and A1C #Elevated BP * no known diagnosis of hypertension. BP is 150/78 * since he received tPA, to keep BP below 150/80 * DVT prophylaxis: SCDs. No anticoagulation since he received tPA Code status: DNRCCA no intubation * Patient and family counseled extensively about different types of CODE STATUS including full code, DNR CCA and DNR CCA. Patient elects to be DNRCCA. * Total [id number] time 16 minutes. Inpatient E&M: 40872 Init Hosp L3 Procedures: 47883 Advncd Care Plan 30 Min
--- NOTE | 2020-01-09 07:20 | NURSING ---
DR CALI RAO
--- NOTE | 2020-01-09 07:27 | NURSING ---
ICU ACUTE CVA, HYPERTENSION CALI
--- NOTE | 2020-01-09 07:34 | NURSING ---
ICU7
--- NOTE | 2020-01-09 09:26 | PCM.CON.CC ---
Reason for Consult Date of Consultation: 01/09/20 Reason for Consultation: Acute CVA s/p TPA History of Present Illness: The patient is an 84-year-old male, with a history as outlined below, who presented to the emergency department on the morning of January 08 with complaints of left upper extremity paralysis, dysarthria and numbness. The patient has no prior history of a CVA. He is a prior smoker, having quit 10+ years ago. The patient does have baseline urinary retention symptoms. He has never been diagnosed with hypertension previously. On presentation to the emergency department, the patient was noted to be afebrile and hemodynamically stable. He was maintaining appropriate oxygen saturations on room air. Initial laboratory evaluation was largely unremarkable. Troponin was negative. CT head was unremarkable. Plain film chest x-ray revealed no acute cardiopulmonary process. CTA head and neck demonstrated no hemodynamically significant arterial stenosis, occlusion or aneurysm. Initial NIH score in the emergency department was 11. Following consultation with neurology, the decision was made to administer TPA. Following this, the patient was transferred to the medical intensive care unit for further management. Past Medical History Past Medical History (Chronic Problems): Chronic Problems (Last Updated 06/24/18 @ 13:46 by Nyasia Hussein) GERD (gastroesophageal reflux disease) (Chronic) BPH (benign prostatic hyperplasia) (Chronic) Medical History: Medical History (Last Updated 06/24/18 @ 13:46 by Nyasai Hussein) Arthritis M19.90 Allergies ciprofloxacin [From Cipro] Allergy (Unknown, Verified 10/09/19 15:04) unknown bee venom protein (honey bee) Allergy (Verified 10/09/19 15:04) Other Home Medications: Ambulatory Orders Medication Instructions Recorded Vitamin D3/Folic Acid PO DAILY 01/09/20 Surgical History: Surgical History (Last Updated 06/24/18 @ 13:46 by Nyasia Hussein) History of bilateral inguinal hernia repair Z98.890, Z87.19 Surgical History: TURP Psychiatric History: No pertinent psych hx Lives: Spouse/ Significant Other Smoking Status: Former smoker Alcohol: None Drugs: None - *Family History Maternal History Items: No pertinent history Paternal History Items: No pertinent history Review of Systems Constitutional: Denies: Chills, Fever, Malaise, Fatigue Eyes: Denies: Blurred vision, Double vision HEENT: Reports: Difficulty Hearing Cardiovascular: Denies: Chest Pain, Palpitations Respiratory: Denies: Cough, Shortness of breath at rest, Sputum production Gastrointestinal: Denies: Abdominal Pain, Nausea, Vomiting Genitourinary: Reports: Retention Musculoskeletal: Denies: Joint Pain, Joint Tenderness Skin: Denies: Rash, Wounds Neurological: Reports: Balance problems, Change in Speech, Slurred speech, Focal weakness, Numbness Psychiatric: Denies: Anxiety, Depression, Homicidal Ideations, Suicidal Ideations Hematologic/ Lymphatic: Denies: Easy Bruising, Easy Bleeding Objective: The patient's most recent lab work, culture data and imaging studies have all been personally reviewed. - Physical Exam Vitals/I&O's: Vital Signs Temp Pulse Resp BP Pulse Ox 97.1 F L 59 L 14 145/58 H 99 01/09/20 09:00 01/09/20 09:00 01/09/20 09:00 01/09/20 09:00 01/09/20 09:00 Oxygen Delivery Method Room Air Weight: 166 lb 3.657 oz Body Mass Index (BMI) 25.2 Finger Stick Blood Glucose 121 Intake and Output for Last 24 Hours 01/07/20 01/08/20 01/09/20 23:59 23:59 23:59 Intake Total 61.2 / 61.2 Balance 61.2 / 61.2 General: Alert, Oriented x3, Cooperative, No apparent distress HEENT: Atraumatic, PERRLA, Normocephalic Oral: No Gingival or Mucosal Lesions/ Ulcerations Neck: Supple, No Nodes, Trachea Midline Lungs: Normal air movement, No rhonchi, No wheeze, No rales Cardiovascular: Regular rate, Regular Rhythm, No murmurs Abdomen: Bowel Sounds Present, Soft, Non Tender Extremities: No clubbing, No cyanosis, No edema Skin: No breakdown Musculoskeletal: No Tenderness to Palpation of Joints or Extremities, No Muscle Wasting Lymphatic: No Cervical, Supraclavicular, or Inguinal Adenopathy Neurological: - - Flaccid left upper extremity. + Dysarthria and facial droop Psych/Mental Status: Normal Affect, Appropriate Labs (Last 48 Hours) 01/09/20 01/09/20 01/09/20 06:35 06:35 06:45 WBC 5.9 RBC 4.48 L Hgb 14.2 Hct 43.9 MCV 98.0 H MCH 31.7 MCHC 32.3 RDW Std Deviation 46.5 H RDW Coeff of Isiah 13.0 Plt Count 249 MPV 9.7 Immature Gran % (Auto) 0.500 Neut % (Auto) 59.1 Lymph % (Auto) 27.7 [place] % (Auto) 9.0 Eos % (Auto) 2.9 Baso % (Auto) 0.8 Absolute Neuts (auto) 3.5 Absolute Lymphs (auto) 1.63 Nucleated RBC % 0 PT 12.8 INR 1.0 APTT 26.1 Sodium 141 Potassium 4.2 Chloride 112 H Carbon Dioxide 24.0 Anion Gap 5 BUN 20 H Creatinine 0.96 Estim Creat Clear Calc 56.41 Est GFR (MDRD) Af Amer 96 Est GFR (MDRD) Non-Af 79 BUN/Creatinine Ratio 20.8 H Glucose 104 Calcium 9.4 Troponin I < 0.015 Clinical Impression(s) from Imaging Studies Brain CT 01/09/20 06:18 IMPRESSION: No acute intracranial abnormality. Old right basal ganglia lacunar infarction. If there is a high clinical suspicion of an acute infarction and further imaging is warranted, recommend MRI. Electronically Signed: Haroon Shah MD at 6:35 EDT , Service support , ADDENDUM: 01/09/20 0644 IMPRESSION: No acute intracranial abnormality. Old right basal ganglia lacunar infarction. If there is a high clinical suspicion of an acute infarction and further imaging is warranted, recommend MRI. N.B. : The above information has been verbally conveyed by Haroon Shah MD to Dr. Ezequiel MD, on 01/09/2020 06:37:52 (ET). Electronically Signed: Haroon Shah MD at 6:35 EDT , Service support , Chest X-Ray 01/09/20 06:18 IMPRESSION: Stable, nonacute portable x-ray examination of the chest. Electronically Signed: Mansoor Graham MD (Brooks) at 8:00 EDT , Service support , Head/Neck CTA 01/09/20 07:13 IMPRESSION: No evidence for hemodynamically significant arterial stenosis, occlusion, or aneurysm. Electronically Signed: Agapito Rueda MD at 7:52 EDT , Service support , ADDENDUM: 01/09/20 0801 IMPRESSION: No evidence for hemodynamically significant arterial stenosis, occlusion, or aneurysm. N.B. : The above information has been verbally conveyed by Agapito Rueda MD to Simba Bui MD, on 01/09/2020 07:54:04 (ET). Electronically Signed: Agapito Rueda MD at 7:52 EDT , Service support , Current Medications Acetaminophen (Tylenol) 650 mg PO .X1 PRN PRN Reason: Temp > 99.6 F Diphenhydramine HCl (Benadryl) 50 mg IV .X1 PRN PRN Reason: Allergic Reaction Stop: 01/11/20 06:50 Sodium Chloride () 1,000 mls @ 100 mls/hr IV .Q10H JASKARAN Famotidine 20 mg/ Sodium (Chloride) 10 mls @ 300 mls/hr IV .X1 PRN PRN Reason: Allergic Reaction Stop: 01/11/20 06:50 Nicardipine/Dextrose (Cardene-Dex 20 Mg/200 Ml Soln) 20 mg in 200 mls @ 50 mls/hr IV .Q4H PRN; Protocol PRN Reason: See Instructions Labetalol HCl (Trandate) 20 mg IV X1 PRN PRN Reason: BLOOD PRESSURE Last Admin: 01/09/20 06:47 Dose: 20 mg Documented by: Labetalol HCl (Trandate) 20 mg IV X1 PRN; Protocol PRN Reason: BLOOD PRESSURE Methylprednisolone (Solu-Medrol) 125 mg IV .X1 PRN PRN Reason: Allergic Reaction Stop: 01/11/20 06:50 Sodium Chloride () 10 - 40 ml IV UD PRN PRN Reason: SALINE FLUSH Assessment/Plan RECOMMENDATIONS: 1. Continue routine ICU monitoring per TPA protocol. 2. Maintain blood pressures less than 185/110 mmHg. 3. Echocardiogram. 4. MRI brain tomorrow morning. 5. Speech therapy evaluation. 6. PT/OT evaluations tomorrow. 7. High-dose statin. IMPRESSIONS: 1. Acute ischemic CVA status post TPA Continue routine ICU monitoring per TPA protocol. Patient will remain in bed rest over the next 24 hours. Plan for MRI brain tomorrow morning. PT/OT evaluations once repeat imaging is completed tomorrow. Speech therapy will also need to evaluate the patient. Echocardiogram is pending. Maintain blood pressures less than 185/110 mmHg. High-dose statin to be initiated. CODE status: Discussed CODE status at length including difference between FULL code, DNR-CCA and DNR-CC status. Following discussions about the differences in these status, patient requested DNR CCA without intubation CODE STATUS. Advanced Care Planning Face to Face Time: 12 minutes This note was generated with [employer] dictation software. It may contain incorrect words, spelling, and punctuation that were not noted in checking the note before signing. Inpatient E&M: 06111 Init Hosp L3 Procedures: 55040 Advncd Care Plan 30 Min
--- NOTE | 2020-01-09 09:47 | ECHOD_ITS ---
Reason For Study: TIA/CVA Procedure This was a 2D Doppler, Color Flow transthoracic echocardiogram. Contrast injection was performed. Tecnically difficult study, patient scanned supine due to condition, patient also could not hold still for testing. Exam performed portable in ICU/CCU. Left Ventricle Normal LV size. Left ventricular systolic function is normal. The estimated ejection fraction is 55 %. Stage 1 diastolic dysfunction. No regional wall motion abnormalities noted. Right Ventricle Normal RV size. Normal systolic function. Atria Normal left atrium. Normal right atrium. Bubble contrast study negative for right to left interatrial shunt. Mitral Valve Normal mitral valve. Tricuspid Valve Normal tricuspid valve. Aortic Valve Trisinus/trileaflet aortic valve. Mild focal aortic valve calcification. Pulmonic Valve Normal pulmonic valve. Great Vessels Mildly dilated aortic root. The pulmonary artery is normal size. Normal inferior vena cava. Pericardium/Pleural No pericardial effusion. Medication Performed a rapid injection of agitated mix of 9 cc saline and 1cc air to assess for atrial septal defect. MMode/2D Measurements & Calculations LVIDd: 4.4 cm IVSd: 1.1 cm Ao root diam: 3.8 cm LVIDs: 2.7 cm LVPWd: 1.1 cm LA dimension: 3.3 cm FS: 39.2 % LAV(MOD-bp): 22.8 ml LA A4 area: 7.6 cm2 RA A4 area: 7.6 cm2 LAV(MOD-bp) Indexed: 12.1 ml/m2 LAV(MOD-sp2): 29.2 ml LAV(MOD-sp4): 13.6 ml Time Measurements MV dec time: 0.30 sec Doppler Measurements & Calculations MV E max lorenzo: 44.5 cm/sec Lat Peak E' Lorenzo: 7.7 cm/sec Med Peak E' Lorenzo: 7.0 cm/sec MV A max lorenzo: 82.3 cm/sec E/E' lat: 5.7 E/E' med: 6.4 MV E/A: 0.54 MV V2 max: 99.2 cm/sec MV P1/2t max lorenzo: 50.1 cm/sec Ao V2 max: 119.8 cm/sec MV max P.9 mmHg MV P1/2t: 102.8 msec Ao max P.7 mmHg MV V2 mean: 42.8 cm/sec MV dec slope: 142.9 cm/sec2 MV mean P.92 mmHg MV V2 VTI: 18.0 cm MVA(P1/2t): 2.1 cm2 LV V1 max: 109.1 cm/sec PA V2 max: 98.2 cm/sec LV V1 max P.8 mmHg Interpretation Summary Normal LV size. Left ventricular systolic function is normal. The estimated ejection fraction is 55 %. Stage 1 diastolic dysfunction. Bubble contrast study negative for right to left interatrial shunt. Ordering Physician: Jana Rick Referring Physician: Jasvir Brock Performed By: Gordon Ward RCS
--- NOTE | 2020-01-09 09:51 | CASEMGMT ---
[facility] assessment: Face to Face with patient for initial transition planning/care coordination assessment. RN HUBER introduced self and role at [facility], pt voices understanding and consents to assessment at this time. Pt is lying in bed in no distress at this time. Pt is A/Ox4 at this time and answers all questions appropriately at this time. Pt's NIH is currently 9 per nursing and pt is on bedrest s/p TPA. CM to follow. Care providers, pharmacy, and demographics verified at this time. Presentation: Left sided weakness, facial droop, aphasia, numbness-last known well 329 Admitting dx: Acute CVA PCP: Delmy Specialists: maegan Andres Preferred [facility]acy: [facility] Insurance: [facility] Prescription Benefit: [facility] Living Will/HPOA: Pt states does not have LW/HPOA and declines info at this time. Pt states 'My son knows what I want and what to do.' LNOK: Jasvri Bearden, son; Ruben Baltazar, sig other Living Arrangements: Pt states lives with sig other in 1 story home with 3 railed steps in and states no concerns at home at this time. Pt states is normally independent with ADL's. Transportation: Pt states drives self and states no tranportation concerns at this time. DME/HHC: Pt states has grab bars in shower and states no need for any further DME at this time. Pt states no hx of HHC or SNF in the past. Pt is retired. Pt states quit smoking cigarettes in 1990 and does not drink ETOH. Pt states no further concerns/needs at this time. CM to follow PT/OT evals, MRI results, and any further discharge planning/needs. Advised pt to ask for CM if any further questions/concerns/needs arise, voices understanding. Pt Goal: Home Plan: TBD, pending evals/MRI. [facility]
[2020-01-09] MEDS: 0.9% Normal Saline 1,000 ML 100 ML IV ×2 (09:57→20:15)
--- NOTE | 2020-01-09 11:16 | NURSING ---
Patient arrived to the ICU at 0840.
--- NOTE | 2020-01-09 15:02 | CHAPLAIN ---
Type of Pastoral Visit _x__ Initial Visit ___ Follow-up Visit ___ On-call Visit ___ General Patient Visit ___ Spiritual Assessment ___ Family Conference ___ Bereavement ___ Rapid Response ___ Code Blue ___ Other (describe below) Pastoral Care Referral From _x__ Patient ___ Family ___ Nurse ___ Physician ___ Claims Service Representative ___ Supervisor Press Room ___ Other (describe below) Sacrament/Intervention _x__ Active listening ___ Anointing ___ Latter Day ___ Bereavement ___ Communion ___ Terese exploration ___ _x__ Life review _x__ Prayer ___ Reconciliation ___ Sacrament of Sick _x__ Supportive presence ___ Wedding ___ Other (describe below) Pastoral Comments patient is very talkative about his life and gives review of many close encounters with ; pt states that he has lost most of his family and friends to ; pt has significant questions of spiritual nature and trying to make sense of the meaning of his life; pt is tearful at times throughout this visit; pt is open to prayer and personal support; pt was needed for testing; visit ended
[2020-01-09] MEDS: Atorvastatin Calcium 80 MG Tablet PO (21:07)
[2020-01-10] VITALS (23 sets, daily range): BP systolic 123–160; BP diastolic 62–85; PULSE 64–76; RESP 12–22; TEMP 36.4–37.2; O2SAT 94–99; BMI 25.2
[2020-01-10 04:27] LABS: Absolute Lymphocyte Count 1.76 X10^3/uL (0.83-4.51); Absolute Neutrophil Count 5.9 X10^3/uL (2.0-7.7); Basophil# 0.04 X10^3/uL; Basophil% 0.5 % (0-1); Eosinophil# 0.16 X10^3/uL; Eosinophils% 1.9 % (0-5); Hemoglobin 12.9 g/dL (13.0-16.5); Lymphocyte # 1.76 X10^3/ul (4.0); Lymphocyte % 20.5 % (19-41); Mean Corp Hgb Conc 32.3 g/dL (32-36); Mean Corpuscular Hgb 31.6 pg (27.0-32.0); Mean Platelet Vol. 9.7 fl (6.2-12.0); Monocyte# 0.71 X10^3/uL; Monocyte% 8.3 % (0-10); NRBC Flagged by Analyzer 0 % (0-5); Neutrophil # 5.87 X10^3/uL (2.7-7.7); Neutrophil % 68.4 % (47-70); Platelet Count 254 K/mm3 (150-450); RBC Distribution Width CV 13.2 % (11.6-14.6); RBC Distribution Width SD 47.9 fl (35.1-43.9); Red Blood Count 4.08 M/mm3 (4.6-6.2); White Blood Count 8.6 K/mm3 (4.4-11.0)
[2020-01-10 04:48] LABS: Anion Gap 4 (5-15); BUN 12 mg/dL (7-18); BUN/Creat Ratio 15.8 RATIO (10-20); Calcium,Total 8.6 mg/dL (8.5-10.1); Chloride 109 mmol/L (98-107); Cholesterol 172 mg/dL (200); Creatinine, Serum 0.76 mg/dL (0.70-1.30); EST Glomerular Filtration Rate 104 mL/min (>60); Est Glom Filt Rate - Afr Amer 126 mL/min (>60); Estimated Creatinine Clearance 54.15 ml/min; Glucose 112 mg/dL (74-106); High Density Lipoprotein 47 mg/dL; Potassium 3.7 mmol/L (3.5-5.1); Sodium Level 140 mmol/L (136-145); Triglycerides 121 mg/dL; Very Low Density Lipoprotein 24 mg/dL (5-40)
--- NOTE | 2020-01-10 05:55 | MRI_ITS ---
We are attempting to reach an attending provider to discuss findings. An addendum with communication details will be sent when the communication is complete. STUDY: MRI BRAIN WITH AND WITHOUT CONTRAST REASON FOR EXAM: Male, 84 years old. Left sided weakness. 24 hrs post TPA TECHNIQUE: Standardized multiplanar fat and water weighted pulse sequences were obtained. 14ml Dotarem via IV was administered for the contrast portion of the examination. COMPARISON: CT 01/09/2020 FINDINGS: There is mild cerebral atrophy with widening of the extra-axial spaces and ventricular dilatation. There are multiple white matter hyperintensities, distributed throughout the deep white matter tracts of the cerebral hemispheres, consistent with moderate chronic white matter ischemic changes. Multiple hyperintensities of the cortex of the right parietal lobe demonstrates restricted diffusion consistent with an acute right middle cerebral artery infarct. Normal T2* images of the brain without demonstrated susceptibility artifact. There is no demonstrated hemosiderin stain. Normal bilateral basal ganglia. Normal thalami. There is no extra-axial fluid accumulation. Normal flow voids within the major intracranial circulation suggesting patency by spin echo criteria. Normal venous enhancement. There is no enhancing intra-axial or extra-axial abnormality. Normal sella turcica, pituitary gland, infundibular stalk, optic chiasm and hypothalamus. Normal tectal plate and pineal gland. Normal midbrain, amanda and medulla. Normal cerebellum. Normal basal cisterns. Normal bilateral temporal bones. Normal bilateral internal auditory canals. No demonstrated orbital abnormality, within the constraints of a routine brain study. Normal visualized paranasal sinuses. Normal calvarium and skull base. Normal visualized soft tissue structures. Normal visualized upper cervical spine. 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 Electronically Signed: Omega Amaro MD at 9:06 EDT Tel , Service support ,
--- NOTE | 2020-01-10 06:21 | PCM.PN.INT ---
Subjective: The patient was seen and examined at the bedside this morning. Events from the last 24 hours have been reviewed. The patient is currently afebrile, hemodynamically stable and maintaining appropriate oxygen saturations on room air. The patient did struggle with urinary retention issues yesterday, but was unable to have a Olivas catheter placed due to TPA administration. Objective: The patient's most recent lab work, culture data and imaging studies have all been personally reviewed. Surface echocardiogram revealed normal LV size with an ejection fraction of 55%. Stage I diastolic dysfunction was noted. There is no evidence of a right to left intra-atrial shunt. General: Alert, Cooperative, No apparent distress HEENT: Atraumatic, PERRLA, Normocephalic Oral: No Gingival or Mucosal Lesions/ Ulcerations Neck: Supple, No Nodes, Trachea Midline Lungs: Normal air movement, No rhonchi, No wheeze, No rales Cardiovascular: Regular rate, Regular Rhythm Abdomen: Bowel Sounds Present, Soft, Non Tender Extremities: No clubbing, No cyanosis, No edema Skin: No breakdown Musculoskeletal: No Tenderness to Palpation of Joints or Extremities Lymphatic: No Cervical, Supraclavicular, or Inguinal Adenopathy Neurological: - - Limited motor movement in left upper extremity. Psych/Mental Status: Normal Affect, Appropriate Vital Signs Temp Pulse Resp BP Pulse Ox 97.9 F 67 12 142/67 H 96 01/10/20 04:00 01/10/20 06:00 01/10/20 06:00 01/10/20 06:00 01/10/20 06:00 Oxygen Delivery Method Room Air Weight: 161 lb 13.109 oz Body Mass Index (BMI) 25.2 Finger Stick Blood Glucose 121 Intake and Output for Last 24 Hours 01/08/20 01/09/20 01/10/20 23:59 23:59 23:59 Intake Total 1221.2 / 1221.2 828.33 / 828.33 Output Total 2175 / 2375 1100 / 1100 Balance -953.8 / -1153.8 -271.67 / -271.67 Labs (Last 48 Hours) 01/09/20 01/09/20 01/09/20 06:35 06:35 06:45 WBC 5.9 RBC 4.48 L Hgb 14.2 Hct 43.9 MCV 98.0 H MCH 31.7 MCHC 32.3 RDW Std Deviation 46.5 H RDW Coeff of Isiah 13.0 Plt Count 249 MPV 9.7 Immature Gran % (Auto) 0.500 Neut % (Auto) 59.1 Lymph % (Auto) 27.7 [place] % (Auto) 9.0 Eos % (Auto) 2.9 Baso % (Auto) 0.8 Absolute Neuts (auto) 3.5 Absolute Lymphs (auto) 1.63 Nucleated RBC % 0 PT 12.8 INR 1.0 APTT 26.1 Sodium 141 Potassium 4.2 Chloride 112 H Carbon Dioxide 24.0 Anion Gap 5 BUN 20 H Creatinine 0.96 Estim Creat Clear Calc 56.41 Est GFR (MDRD) Af Amer 96 Est GFR (MDRD) Non-Af 79 BUN/Creatinine Ratio 20.8 H Glucose 104 Hemoglobin A1c Calcium 9.4 Troponin I < 0.015 Triglycerides Cholesterol LDL Cholesterol VLDL Cholesterol HDL Cholesterol 01/09/20 01/10/20 01/10/20 10:25 04:15 04:15 WBC 8.6 RBC 4.08 L Hgb 12.9 L Hct 40.0 MCV 98.0 H MCH 31.6 MCHC 32.3 RDW Std Deviation 47.9 H RDW Coeff of Isiah 13.2 Plt Count 254 MPV 9.7 Immature Gran % (Auto) 0.400 Neut % (Auto) 68.4 Lymph % (Auto) 20.5 [place] % (Auto) 8.3 Eos % (Auto) 1.9 Baso % (Auto) 0.5 Absolute Neuts (auto) 5.9 Absolute Lymphs (auto) 1.76 Nucleated RBC % 0 PT INR APTT Sodium 140 Potassium 3.7 Chloride 109 H Carbon Dioxide 27.0 Anion Gap 4 L BUN 12 Creatinine 0.76 Estim Creat Clear Calc 54.15 Est GFR (MDRD) Af Amer 126 Est GFR (MDRD) Non-Af 104 BUN/Creatinine Ratio 15.8 Glucose 112 H Hemoglobin A1c Calcium 8.6 Troponin I < 0.015 Triglycerides 121 Cholesterol 172 LDL Cholesterol 101 VLDL Cholesterol 24 HDL Cholesterol 47 01/10/20 04:15 WBC RBC Hgb Hct MCV MCH MCHC RDW Std Deviation RDW Coeff of Isiah Plt Count MPV Immature Gran % (Auto) Neut % (Auto) Lymph % (Auto) [place] % (Auto) Eos % (Auto) Baso % (Auto) Absolute Neuts (auto) Absolute Lymphs (auto) Nucleated RBC % PT INR APTT Sodium Potassium Chloride Carbon Dioxide Anion Gap BUN Creatinine Estim Creat Clear Calc Est GFR (MDRD) Af Amer Est GFR (MDRD) Non-Af BUN/Creatinine Ratio Glucose Hemoglobin A1c Pending Calcium Troponin I Triglycerides Cholesterol LDL Cholesterol VLDL Cholesterol HDL Cholesterol Clinical Impression(s) from Imaging Studies Brain CT 01/09/20 06:18 IMPRESSION: No acute intracranial abnormality. Old right basal ganglia lacunar infarction. If there is a high clinical suspicion of an acute infarction and further imaging is warranted, recommend MRI. Electronically Signed: Haroon Shah MD at 6:35 EDT , Service support , ADDENDUM: 01/09/20 0644 IMPRESSION: No acute intracranial abnormality. Old right basal ganglia lacunar infarction. If there is a high clinical suspicion of an acute infarction and further imaging is warranted, recommend MRI. N.B. : The above information has been verbally conveyed by Haroon Shah MD to Dr. Ezequiel MD, on 01/09/2020 06:37:52 (ET). Electronically Signed: Haroon Shah MD at 6:35 EDT , Service support , Chest X-Ray 01/09/20 06:18 IMPRESSION: Stable, nonacute portable x-ray examination of the chest. Electronically Signed: Mansoor Graham MD (Brooks) at 8:00 EDT , Service support , Head/Neck CTA 01/09/20 07:13 IMPRESSION: No evidence for hemodynamically significant arterial stenosis, occlusion, or aneurysm. Electronically Signed: Agapito Rueda MD at 7:52 EDT , Service support , ADDENDUM: 01/09/20 0801 IMPRESSION: No evidence for hemodynamically significant arterial stenosis, occlusion, or aneurysm. N.B. : The above information has been verbally conveyed by Agapito Rueda MD to Simba Bui MD, on 01/09/2020 07:54:04 (ET). Electronically Signed: Agapito Rueda MD at 7:52 EDT , Service support , Medical Necessity - Tobacco Use Smoking Status: Former smoker Tobacco Use: Cigarettes, Cigars, Pipe Assessment/Plan RECOMMENDATIONS: 1. MRI brain this morning. 2. PT/OT evaluations later today. 3. High-dose statin. 4. Following MRI, patient can be transferred out of the medical intensive care unit. 5. Given the patient's lack of further ICU or pulmonary needs, will sign off. Please call with any additional questions. IMPRESSIONS: 1. Acute ischemic CVA status post TPA Continue monitoring per TPA protocol. Patient will have brain MRI completed this morning. PT/OT evaluations once repeat imaging is completed. Continue high-dose statin. The patient is medically stable for transfer out of the intensive care unit. CODE status: Discussed CODE status at length including difference between FULL code, DNR-CCA and DNR-CC status. Following discussions about the differences in these status, patient requested DNR CCA without intubation CODE STATUS. This note was generated with [employer] dictation software. It may contain incorrect words, spelling, and punctuation that were not noted in checking the note before signing. Inpatient E&M: 47916 Subs Hosp L2
[2020-01-10 07:59] LABS: Hemoglobin A1c 5.7 % (3.8-5.6)
--- NOTE | 2020-01-10 10:07 | TELEMED_ITS ---
[facility] has confirmed receipt of a request for visit. This document confirms receipt of the order initiating the consult. To find the results of the consultation, please view the patient's reports for the scanned Telemed Consult.
--- NOTE | 2020-01-10 10:49 | PN_ITS ---
Subjective: Patient seen and examined. He has no complaints today. His speech is much clearer though he still has left upper extremity weakness. Review of systems otherwise negative. He has remained hemodynamically stable. Vitals/I&O's: Vital Signs Temp Pulse Resp BP Pulse Ox 98.2 F 71 15 136/83 H 96 01/10/20 10:00 01/10/20 10:00 01/10/20 10:00 01/10/20 10:00 01/10/20 10:00 Oxygen Delivery Method Room Air Weight: 161 lb 13.109 oz Body Mass Index (BMI) 25.2 Finger Stick Blood Glucose 121 Intake and Output for Last 24 Hours 01/08/20 01/09/20 01/10/20 23:59 23:59 23:59 Intake Total 1221.2 / 1221.2 1250.00 / 1250.00 Output Total 2175 / 2375 1500 / 1500 Balance -953.8 / -1153.8 -250.00 / -250.00 General: Alert, Oriented x3, Cooperative, No apparent distress HEENT: Atraumatic, PERRLA, EOMI, Normocephalic Oral: Moist Mucosa Neck: Supple, No JVD, Negative Carotid Bruits Lungs: Clear to auscultation, Normal air movement, No rhonchi, No wheeze, No rales Cardiovascular: Regular rate, Regular Rhythm, Normal S1, Normal S2, No murmurs Abdomen: Bowel Sounds Present, Soft, Non Tender, Non-Distended, No Hepato- splenomegaly Extremities: No clubbing, No cyanosis, No edema, Capillary Refill Less than 3 Seconds Skin: No rashes, No breakdown Musculoskeletal: No Tenderness to Palpation of Joints or Extremities Lymphatic: No Cervical, Supraclavicular, or Inguinal Adenopathy Neurological: - -dysarthria has improved markedly, CN II-XII otherwise intact, has 2/5 power in LUE, with decreased sensation to light touch and pinprick in LUE. NIHSS is 6 today Psych/Mental Status: Normal Affect, Appropriate, Alert and oriented to time, place, person, mood and affect Laboratory Results 01/09/20 10:25: Troponin I < 0.015 01/10/20 04:15: WBC 8.6, RBC 4.08 L, Hgb 12.9 L, Hct 40.0, MCV 98.0 H, MCH 31.6, MCHC 32.3, RDW Std Deviation 47.9 H, RDW Coeff of Isiah 13.2, Plt Count 254, MPV 9.7, Immature Gran % (Auto) 0.400, Neut % (Auto) 68.4, Lymph % (Auto) 20.5, [place] % (Auto) 8.3, Eos % (Auto) 1.9, Baso % (Auto) 0.5, Absolute Neuts (auto) 5.9, Absolute Lymphs (auto) 1.76, Nucleated RBC % 0 01/10/20 04:15: Sodium 140, Potassium 3.7, Chloride 109 H, Carbon Dioxide 27.0, Anion Gap 4 L, BUN 12, Creatinine 0.76, Estim Creat Clear Calc 54.15, Est GFR (MDRD) Af Amer 126, Est GFR (MDRD) Non-Af 104, BUN/Creatinine Ratio 15.8, Glucose 112 H, Calcium 8.6, Triglycerides 121, Cholesterol 172, LDL Cholesterol 101, VLDL Cholesterol 24, HDL Cholesterol 47 01/10/20 04:15: Hemoglobin A1c 5.7 H Diagnostic Data Brain CT 01/09/20 06:18 IMPRESSION: No acute intracranial abnormality. Old right basal ganglia lacunar infarction. If there is a high clinical suspicion of an acute infarction and further imaging is warranted, recommend MRI. Electronically Signed: Haroon Shah MD at 6:35 EDT , Service support , ADDENDUM: 01/09/20 0644 IMPRESSION: No acute intracranial abnormality. Old right basal ganglia lacunar infarction. If there is a high clinical suspicion of an acute infarction and further imaging is warranted, recommend MRI. N.B. : The above information has been verbally conveyed by Haroon Shah MD to Dr. Ezequiel MD, on 01/09/2020 06:37:52 (ET). Electronically Signed: Haroon Shah MD at 6:35 EDT , Service support , Chest X-Ray 01/09/20 06:18 IMPRESSION: Stable, nonacute portable x-ray examination of the chest. Electronically Signed: Mansoor Graham MD ([place]) at 8:00 EDT , Service support , Head/Neck CTA 01/09/20 07:13 IMPRESSION: No evidence for hemodynamically significant arterial stenosis, occlusion, or aneurysm. Electronically Signed: Agapito Rueda MD at 7:52 EDT , Service support , ADDENDUM: 01/09/20 0801 IMPRESSION: No evidence for hemodynamically significant arterial stenosis, occlusion, or aneurysm. N.B. : The above information has been verbally conveyed by Agapito Rueda MD to Simba Bui MD, on 01/09/2020 07:54:04 (ET). 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 N.B. : Luisa Weiner RN, confirmed on 01/10/2020 09:19:34 (ET) that the referring physician received the results and does not require a verbal communication. Electronically Signed: Omega Amaro MD at 9:06 EDT Tel , Service support , Current Medications Acetaminophen (Tylenol) 650 mg PO .X1 PRN PRN Reason: Temp > 99.6 F Atorvastatin Calcium (Lipitor) 80 mg PO QHS JASKARAN Last Admin: 01/09/20 21:07 Dose: 80 mg Documented by: Diphenhydramine HCl (Benadryl) 50 mg IV .X1 PRN PRN Reason: Allergic Reaction Stop: 01/11/20 06:50 Hydralazine HCl (Apresoline Iv) 5 mg IV Q30M PRN PRN Reason: to maintain BP goals Famotidine 20 mg/ Sodium (Chloride) 10 mls @ 300 mls/hr IV .X1 PRN PRN Reason: Allergic Reaction Stop: 01/11/20 06:50 Nicardipine/Dextrose (Cardene-Dex 20 Mg/200 Ml Soln) 20 mg in 200 mls @ 50 mls/hr IV .Q4H PRN; Protocol PRN Reason: See Instructions Labetalol HCl (Trandate) 10 - 20 mg IV Q10M PRN PRN PRN Reason: to Maintain BP Goals Methylprednisolone (Solu-Medrol) 125 mg IV .X1 PRN PRN Reason: Allergic Reaction Stop: 01/11/20 06:50 Ondansetron HCl (Zofran) 4 mg IV Q8H PRN PRN PRN Reason: NAUSEA/VOMITING Sodium Chloride () 10 - 40 ml IV UD PRN PRN Reason: SALINE FLUSH Sodium Chloride () 10 - 40 ml IV UD PRN PRN Reason: SALINE FLUSH STROKE Vital Signs/Narrative: Vital Signs Temp Pulse Resp BP Pulse Ox 01/10/20 10:00 98.2 F 71 15 136/83 H 96 01/10/20 09:30 95 01/10/20 09:00 70 22 H 152/79 H 95 01/10/20 08:21 68 16 157/70 H 95 01/10/20 08:00 70 16 144/77 H 95 01/10/20 07:34 65 01/10/20 07:00 66 18 158/85 H 95 Medical Necessity - Tobacco Use Smoking Status: Former smoker Tobacco Use: Cigarettes, Cigars, Pipe Assessment/Plan 84 y/o male admitted with a complaint of left sided weakness # Acute CVA * received tPA * NIHSS today is 6 * CT of the brain was negative, but MRI of the brain shows an acute multifocal right middle cerebral infarct * On high intensity statin. Not on aspirin or antiplatelets because he received TPA. * Neurology consulted-await recs. * Lipid panel within normal limits. A1c is 5.7. * PT OT on board. * Goal is to keep blood pressure below 130/80. * #Elevated BP * Has no known diagnosis of high blood pressure. Blood pressure this morning is 136/83. * Goal is for blood pressure to be below 130/80. * Will start on low-dose BP medication to help control blood pressure. * DVT prophylaxis: SCDs. Code status: DNRCCA no intubation * Disposition: Transfer to PCU. Inpatient E&M: 36873 Subs Hosp L2
--- NOTE | 2020-01-10 11:37 | NURSING ---
report called to [facility] for transfer to room 112, significant other Ruben informed of room number & visiting restrictions voiced understanding
--- NOTE | 2020-01-10 11:50 | CASEMGMT ---
SW completed a PHQ9 with patient as he had a Stroke. He scored a 4 which indicates minimal depression. Patient does not feel any of his positive answers were due to depression. Ebony VARGAS MSW
--- NOTE | 2020-01-10 11:53 | CASEMGMT ---
JASPER did talk with patient about d/c plan. He would like to go to [facility] Inpatient Rehab Unit if possible. JASPER explained to him that it depends on how he does with therapy and if his insurance approves him. JASPER told him JASPER will continue to follow. Ebony CARTWRIGHT
--- NOTE | 2020-01-10 15:17 | CT_ITS ---
STUDY: CT BRAIN WITHOUT CONTRAST REASON FOR EXAM: Male, 84 years old. POST TPA. RECENT CVA RADIATION DOSAGE (If Supplied By Facility): CTDIvol = ( 44.99 ) mGy, DLP = ( 812.98 ) mGycm TECHNIQUE: Transaxial CT imaging of the brain was performed without administration of intravenous contrast material. Individualized dose optimization techniques were used for this CT. COMPARISON: 01/09/2020 FINDINGS: Normal soft tissue structures. Normal calvarium. There is mild cerebral atrophy with widening of the extra-axial spaces and ventricular dilatation. There are areas of decreased attenuation within the white matter tracts of the supratentorial brain, consistent with microvascular disease changes. Normal basal ganglia and thalami. Normal brainstem. Normal cerebellum. There is no intracranial hemorrhage. There are no findings of an acute ischemic infarction. Normal visualized paranasal sinuses. CT/Brain/Head without Contrast IMPRESSION: Chronic involutional changes of the brain. Electronically Signed: Omega Amaro MD at 16:10 EDT Tel , Service support ,
--- NOTE | 2020-01-10 16:08 | CHAPLAIN ---
Type of Pastoral Visit ___ Initial Visit _x__ Follow-up Visit ___ On-call Visit ___ General Patient Visit ___ Spiritual Assessment ___ Family Conference ___ Bereavement ___ Rapid Response ___ Code Blue ___ Other (describe below) Pastoral Care Referral From _x__ Patient ___ Family ___ Nurse ___ Physician ___ Steel Chipper ___ Upholstery Covers Inspector ___ Other (describe below) Sacrament/Intervention _x__ Active listening ___ Anointing ___ Hoahaoism ___ Bereavement ___ Communion ___ Terese exploration ___ _x__ Life review _x__ Prayer ___ Reconciliation ___ Sacrament of Sick _x__ Supportive presence ___ Wedding ___ Other (describe below) Pastoral Comments
[2020-01-10] MEDS: Atorvastatin Calcium 80 MG Tablet PO (22:24)
[2020-01-11 02:58] VITALS: PULSE 66
[2020-01-11 03:50] VITALS: BP 142/65; PULSE 62; RESP 18; TEMP 36.8; O2SAT 96
[2020-01-11 05:50] VITALS: BP 128/75; PULSE 67; RESP 18; TEMP 36.7; O2SAT 96
[2020-01-11 07:00] VITALS: PULSE 67
[2020-01-11] MEDS: Aspirin 325 MG Tablet PO (08:33)
--- NOTE | 2020-01-11 09:07 | CASEMGMT ---
JASPER has talked with [facility] and they would be willing to take patient. However, bed availability may be an issue depending on insurance for another patient. JASPER will follow up with [facility] today. Ebony CARTWRIGHT
[2020-01-11 09:50] VITALS: BP 122/61; PULSE 71; RESP 18; TEMP 36.9; O2SAT 95
[2020-01-11 11:00] VITALS: PULSE 70
--- NOTE | 2020-01-11 11:44 | CASEMGMT ---
Addendum entered by Ebony Chery 01/11/20 12:21: Therapy felt patient would do fine at home with outpatient therapy. However, there were concerns he would try and drive himself as this is what he told them. SW went to patient's room and his son was present. JASPER explained the original plan was [facility] Inpatient Rehab Unit, however they are full and will not have a bed for him. SW also explained it is questionable whether or not his insurance would approve him as he is doing really well. JASPER explained the options of SNF vs outpatient vs home health and having to be homebound for HH. Patient and son agreed outpatient therapy would be fine. Patient's son said they have family that can drive him and they will not let him drive. He wanted SW to set up appt. JASPER told him we usually fax the order and the facility would call him to set up appt. He wants to go to [facility] for outpatient therapy. ANGEL CM notified and is working on getting the order signed. Plan: d/c home with outpatient therapy at [facility] Ebony CARTWRIGHT Original Note: JASPER spoke with [facility]. She said they are full and will not have a bed until Thursday. Patient will be ready for discharge well before Thursday. It was questionable whether or not he would get approved for the rehab unit as he is doing fairly well. JASPER spoke with patient letting him know this information. JASPER told him we could look into a fpc short term. JASPER then explained that if he went to a fpc he would be in quarantine for 14 days with no visitors. He said he does not want to go to a fpc. JASPER then said other options would be home health or outpatient therapy. JASPER told him if he went with home health he would have to be home bound and JASPER explained what that means. Therapy then came into the room to see him. JASPER let them know the situation and asked that they talk with JASPER after therapy with patient and let SW know if they think he will be fine with outpatient or home health. JASPER also updated RN and PA. Ebony CARTWRIGHT
--- NOTE | 2020-01-11 11:48 | DCINST_ITS ---
You will use the following diet at home:: Cardiac Your food should be the consistency of: Regular Your liquids should be the consistency of: Regular/Thin Discharge Activity: May Not Drive Allergies/Adverse Reactions: Allergies ciprofloxacin [From Cipro] Allergy (Unknown, Verified 10/09/19 15:04) unknown bee venom protein (honey bee) Allergy (Verified 10/09/19 15:04) Other Medications to take at Discharge Vitamin D3/Folic Acid PO DAILY 01/09/20 Aspirin [Aspirin, Baby] 81 mg PO DAILY@0800 tab.chew 01/11/20 Atorvastatin Calcium [Lipitor] 80 mg PO QHS #30 tab 01/11/20 The following prescriptions were given: Atorvastatin Calcium [Lipitor] 80 mg PO QHS #30 tab Transmission Status: Pending to [id number] Primary Care Physician: Jasvir Brock MD [Primary Care Provider] - Please follow up with your Primary Care Physician in: 1-2 weeks Test Results: Test results from this visit will be discussed in further detail at your follow- up appointment, if applicable. Please Follow Up With: Zion Dooley MD When: 2 weeks Please Follow Up With: Owen Dailey MD - Loop recorder When: 2 weeks Proposed Discharge Date: 01/11/20
--- NOTE | 2020-01-11 13:56 | PCM.DC.SUM ---
<Berhane Lim - Last Filed: 01/11/20 13:56> Discharge Date and Diagnosis Date of Admission: 01/09/20 Date of Discharge: 01/11/20 - Primary Discharge Diagnosis Acute Problems: Acute multifocal right MCA infarct HTN - Secondary Discharge Diagnosis Chronic Problems: Chronic Problems (Last Updated 06/24/18 @ 13:46 by Nyasia Hussein) GERD (gastroesophageal reflux disease) (Chronic) BPH (benign prostatic hyperplasia) (Chronic) Hospital Course and Treatment Imaging Results: IMAGING: CT/Brain/Head without Contrast IMPRESSION: No acute intracranial abnormality. Old right basal ganglia lacunar infarction. If there is a high clinical suspicion of an acute infarction and further imaging is warranted, recommend MRI. RAD/Chest 1 View IMPRESSION: Stable, nonacute portable x-ray examination of the chest. CT/CTA Head AND Neck W/ Contrast IMPRESSION: No evidence for hemodynamically significant arterial stenosis, occlusion, or aneurysm. N.B. : The above information has been verbally conveyed by Agapito Rueda MD to Simba Bui MD, on 01/09/2020 07:54:04 (ET). CT/CTA Head AND Neck W/ Contrast IMPRESSION: No evidence for hemodynamically significant arterial stenosis, occlusion, or aneurysm. 2D TTE: Interpretation Summary Normal LV size. Left ventricular systolic function is normal. The estimated ejection fraction is 55 %. Stage 1 diastolic dysfunction. Bubble contrast study negative for right to left interatrial shunt. 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 N.B. : Luisa Weiner RN, confirmed on 01/10/2020 09:19:34 (ET) that the referring physician received the results and does not require a verbal communication. CT/Brain/Head without Contrast IMPRESSION: Chronic involutional changes of the brain. Consults: Neurology - SOC Critical Care - Fritz Operations: None Procedures: 2-D Echocardiogram, - - tPA Summary of Care Provided: Hospital course: The patient is a 84 year old M with no significant PMHx who presented to the ER with c/o left arm paralysis and left leg weakness. He was brought to the emergency room and determined to be a TPA candidate which was administered. He was admitted to the intensive care unit following this. An MRI of the brain was obtained and demonstrated an acute multifocal right MCA infarct. He did not demonstrate atrial fibrillation on the monitor. The patient regained some lower extremity strength, continues to have severe weakness in his left arm. He worked with physical therapy and Occupational Therapy and was ambulating well on flat surfaces and stairs. CTA of the head and neck were unremarkable. He was placed on aspirin and statin. He indicates that he does not plan to continue taking a statin at home as he thinks that it makes him hallucinate seeing spots on the wall. An echocardiogram was obtained and demonstrated no acute abnormalities as above. Neurology recommended follow-up with cardiology for loop recorder placement. I arranged for him to have follow-up with a tracing lathe set up operator here at which point a loop recorder versus Holter monitor will be discussed. He will follow-up with cardiology in 2 weeks. He will also need to follow-up with neurology in 2 weeks, his PCP in 1 to 2 weeks. He was discharged home with outpatient therapy in stable condition. He was placed on a driving until further determined appropriate by his neurologist. This restriction was placed given his inability to use his left arm, residual leg weakness, potential hallucinations due to the stroke, however he indicates that regardless of this restriction he will drive anyway. This patient was seen by Berhane Lim PA-C under the supervision of Dr. Rick [] - Physical Exam Vitals/I&O's: Vital Signs Temp Pulse Resp BP Pulse Ox 98.4 F 70 18 122/61 H 95 01/11/20 09:50 01/11/20 11:00 01/11/20 09:50 01/11/20 09:50 01/11/20 09:50 Oxygen Delivery Method Room Air Weight: 161 lb 13.109 oz Body Mass Index (BMI) 25.2 Finger Stick Blood Glucose 121 Intake and Output for Last 24 Hours 01/09/20 01/10/20 01/11/20 23:59 23:59 23:59 Intake Total 1221.2 / 1221.2 1970.00 / 1970.00 360 / 360 Output Total 2175 / 2375 1700 / 1700 Balance -953.8 / -1153.8 270.00 / 270.00 360 / 360 General: Alert, Oriented x3, Cooperative HEENT: Atraumatic, PERRLA, EOMI, Normocephalic Neck: Supple, No JVD, Negative Carotid Bruits Lungs: Clear to auscultation, Normal air movement Cardiovascular: Regular rate, No murmurs Abdomen: Bowel Sounds Present, Soft, Non Tender Extremities: No edema, Capillary Refill Less than 3 Seconds Skin: No rashes, No breakdown Musculoskeletal: No Tenderness to Palpation of Joints or Extremities Neurological: Cranial nerves II-XII grossly intact, - - left arm and hand severe weakness Psych/Mental Status: Normal Affect, Appropriate, Alert and oriented to time, place, person, mood and affect Discharge Activity: May Not Drive Home Medications: Medications to take at Discharge Vitamin D3/Folic Acid PO DAILY 01/09/20 Aspirin [Aspirin, Baby] 81 mg PO DAILY@0800 tab.chew 01/11/20 Atorvastatin Calcium [Lipitor] 80 mg PO QHS #30 tab 01/11/20 Following Prescriptions Were Given to Patient: Atorvastatin Calcium [Lipitor] 80 mg PO QHS #30 tab Transmission Status: Received by [facility] [employer] [id number] Other Amb Orders: 30-Day Event Recorder [[facility]] Location: None Selected Primary Care Physician: Jasvir Brock MD [Primary Care Provider] - Please follow up with your Primary Care Physician in: 1-2 weeks Please Follow Up With: Zion Dooley MD When: 2 weeks Please Follow Up With: Owen Dailey MD - Loop recorder When: 2 weeks Medical Necessity - Tobacco Use Smoking Status: Former smoker Tobacco Use: Cigarettes, Cigars, Pipe Meaningful Use Info Meaningful Use Diagnoses (Choose all that apply): Ischemic CVA - CVA Therapy Assessed for PT,OT and/or ST?: Yes - Ischemic Stroke Antithrombotic order at d/c?: Yes Dx of Atrial fib/flutter?: No Statins at discharge?: Yes Primary Dx Acute Ischemic CVA?: Yes IV tPA ordered during stay?: Yes <Jana Rick - Last Filed: 01/11/20 15:45> Discharge Date and Diagnosis - Secondary Discharge Diagnosis Chronic Problems: Chronic Problems (Last Updated 06/24/18 @ 13:46 by Nyasia Hussein) GERD (gastroesophageal reflux disease) (Chronic) BPH (benign prostatic hyperplasia) (Chronic) Hospital Course and Treatment Summary of Care Provided: Patient seen by Berhane Lim PA-C under my supervision The patient is a 84 year old M with no significant PMH. He was admitted via the ED opn 01/09/2020 with a complaint of left sided weakness. Last known well was around 3:30 AM when he got up to use the bathroom. He was fine at that time. He subsequently woke up again around 5:30 AM and noticed that he could not move his left arm and left leg and also had numbness there. He also had some slurring of his speech. therefore called EMS and he was brought into the ED. On arrival, NIH stroke scale was 11. CT of the brain done was negative for any acute stroke. Tele-stroke neurology was consulted and based on their recommendations and patient's NIH score, patient was started on TPA. On review, vitals show temperature of 97.7 Fahrenheit with blood pressure of 150/78, pulse rate of 56 and respiratory rate of 20. He was saturating at 97% on room air. CBC was unremarkable initial troponin was negative. BMP was also unremarkable. EKG showed no acute ST changes. He was admitted to be managed for acute CVA. CTA of the head and neck also showed no patient received TPA per [facility] tele-stroke neurologist. He was admitted to the ICU. MRI of the brain done showed acute multifocal right middle cerebral artery infarct. Patient was subsequently started on p.o. aspirin. He was also put on high intensity statin. Neurology was consulted and recommended that patient should have a loop recorder placed to assess for an arrhythmia as this was a cryptogenic stroke. Patient remained stable and was discharged home with outpatient physical therapy. I discussed with cardiology about placement of a 30-day event monitor until he follows up with cardiology for discussion about loop recorder placement. Order placed for 30-day event monitor and [facility] service informed. This will be mailed to the patient at home with instructions on how to wear it. Readings to be sent to tracing lathe set up operator. Patient's son Jasvir Bearden called at [phone] and updated about plan for 30-day event monitor being mailed to the patient and follow-up with cardiology, neurology and primary care doctor. H He was discharged on p.o. aspirin as well as high intensity statin. Patient seen and examined prior to discharge. He had no complaints and felt well. Review of symptoms otherwise negative. Patient said that he had been having hallucinations which he attributed to the statin because he said so many doctors had told him statins were not good. Patient counseled that hospitalist the neurologist felt it was very necessary for patient to be on high intensity statin as it was part of the plan of care for stroke management. Patient was not then used about taking it, and after being told that he was at a high risk of stroke if he still refused to take the statin, patient was still not convinced. Patient however was finally agreeable to continuing the statins though he said if he had any more hallucinations he would stop taking the statins. Home medication reviewed and reconciled. O/E: Vital Signs Temp Pulse Resp BP Pulse Ox 98.4 F 70 18 122/61 H 95 01/11/20 09:50 01/11/20 11:00 01/11/20 09:50 01/11/20 09:50 01/11/20 09:50 General: Alert, Oriented x3, Cooperative, No apparent distress HEENT: Atraumatic, PERRLA, EOMI, Normocephalic Oral: Moist Mucosa Neck: Supple, No JVD, Negative Carotid Bruits Lungs: Clear to auscultation, Normal air movement, No rhonchi, No wheeze, No rales Cardiovascular: Regular rate, Regular Rhythm, Normal S1, Normal S2, No murmurs Abdomen: Bowel Sounds Present, Soft, Non Tender, Non-Distended, No Hepato-splenomegaly Extremities: No clubbing, No cyanosis, No edema, Capillary Refill Less than 3 Seconds Skin: No rashes, No breakdown Musculoskeletal: No Tenderness to Palpation of Joints or Extremities Lymphatic: No Cervical, Supraclavicular, or Inguinal Adenopathy Neurological: - -dysarthria has improved markedly, CN II-XII otherwise intact, has 2/5 power in LUE, with decreased sensation to light touch and pinprick in LUE. Psych/Mental Status: Normal Affect, Appropriate, Alert and oriented to time, place, person, mood and affect Plan is for discharge home today. Follow-up with primary care doctor and cardiology. Rest as per Berhane Lim PA-C's note, which I have reviewed and endorsed. - Physical Exam Vitals/I&O's: Vital Signs Temp Pulse Resp BP Pulse Ox 98.4 F 70 18 122/61 H 95 01/11/20 09:50 01/11/20 11:00 01/11/20 09:50 01/11/20 09:50 01/11/20 09:50 Oxygen Delivery Method Room Air Weight: 161 lb 13.109 oz Body Mass Index (BMI) 25.2 Finger Stick Blood Glucose 121 Intake and Output for Last 24 Hours 01/09/20 01/10/20 01/11/20 23:59 23:59 23:59 Intake Total 1221.2 / 1221.2 1970.00 / 1970.00 360 / 360 Output Total 2175 / 2375 1700 / 1700 Balance -953.8 / -1153.8 270.00 / 270.00 360 / 360 Disposition: Home Minutes spent on discharge:: 40 Patient Condition:: Stable Inpatient E&M: [id number] Disch Hosp
== END 2020-01-11 13:43 | disposition home or self-care (01) | DRG 62 ==
LOC: ED 06:34 → ICU 07:30 → PCU 01-10 11:53
PROVIDERS: Admitting Provider Student in an Organized Health Care Education/Training Program; Emergency Provider Emergency Medicine; PCP Family Medicine; Visit Provider Student in an Organized Health Care Education/Training Program
DX: I63.511 Cerebral infarction due to unspecified occlusion or stenosis of right middle cerebral artery (principal); G81.94 Hemiplegia, unspecified affecting left nondominant side; G83.24 Monoplegia of upper limb affecting left nondominant side; R29.810 Facial weakness; R47.81 Slurred speech; R29.711 NIHSS score 11; I10 Essential (primary) hypertension; K21.9 Gastro-esophageal reflux disease without esophagitis; N40.1 Benign prostatic hyperplasia with lower urinary tract symptoms; R33.8 Other retention of urine; Z66 Do not resuscitate; Z79.899 Other long term (current) drug therapy; Z87.891 Personal history of nicotine dependence
CPT/HCPCS: 70450; 70496; 70498; 70553; 71045; 80048; 80061; 83036; 84484; 85025; 85610; 85730; 92526; 92610; 93005; 93306; 94762; 97110; 97162; 97166; 97530; 97535; 99285; A9575; J2997; J7030; Q9957; Q9967; A4216

== ENCOUNTER → 2020-02-10 15:30 | Outpatient (CLI) | payer MEDICARE, SELFPAY ==
[2020-02-01 10:18] VITALS: BMI 25.2
[2020-02-10 17:23] LABS: Absolute Lymphocyte Count 2.02 X10^3/uL (0.83-4.51); Absolute Neutrophil Count 4.1 X10^3/uL (2.0-7.7); Basophil# 0.06 X10^3/uL; Basophil% 0.9 % (0-1); Eosinophil# 0.16 X10^3/uL; Eosinophils% 2.3 % (0-5); Hematocrit 44.5 % (40-54); Hemoglobin 14.1 g/dL (13.0-16.5); Lymphocyte # 2.02 X10^3/ul (4.0); Lymphocyte % 28.7 % (19-41); Mean Corp Hgb Conc 31.7 g/dL (32-36); Mean Corpuscular Hgb 31.5 pg (27.0-32.0); Mean Corpuscular Volume 99.6 fL (80-94); Mean Platelet Vol. 10.5 fl (6.2-12.0); Monocyte# 0.62 X10^3/uL; Monocyte% 8.8 % (0-10); NRBC Flagged by Analyzer 0 % (0-5); Neutrophil # 4.14 X10^3/uL (2.7-7.7); Neutrophil % 58.9 % (47-70); Platelet Count 294 K/mm3 (150-450); RBC Distribution Width CV 13.2 % (11.6-14.6); RBC Distribution Width SD 49.2 fl (35.1-43.9); Red Blood Count 4.47 M/mm3 (4.6-6.2)
[2020-02-10 18:05] LABS: Anion Gap 7 (5-15); BUN 31 mg/dL (7-18); BUN/Creat Ratio 28.7 RATIO (10-20); Calcium,Total 9.3 mg/dL (8.5-10.1); Chloride 108 mmol/L (98-107); Creatinine, Serum 1.08 mg/dL (0.70-1.30); EST Glomerular Filtration Rate 69 mL/min (>60); Est Glom Filt Rate - Afr Amer 84 mL/min (>60); Glucose 100 mg/dL (74-106); Potassium 3.8 mmol/L (3.5-5.1); Sodium Level 142 mmol/L (136-145)
== END ==
PROVIDERS: PCP Family Medicine; Referring Provider Family Medicine; Visit Provider Internal Medicine Cardiovascular Disease
DX: I10 Essential (primary) hypertension (principal); Z86.73 Personal history of transient ischemic attack (TIA), and cerebral infarction without residual deficits
CPT/HCPCS: 36415; 80048; 85025

== ENCOUNTER 2020-02-14 06:35 | Day surgery (SDC) | payer MEDICARE, SELFPAY ==
[2020-02-01 10:18] VITALS: BMI 25.2
[2020-02-13 11:21] VITALS: BMI 25.3
--- NOTE | 2020-02-14 06:00 | HP_ITS ---
HPI HPI History of Present Illness Details: 84-year-old man with no significant previous medical history who presented to the emergency room in January of this year with complaints of left arm paralysis as well as left leg weakness. He was determined to be a TPA candidate which was administered he was admitted to the intensive care unit and MRI of the brain was obtained which demonstrated an acute multifocal right MCA infarct. No atrial fibrillation was noted. He was placed on aspirin and statin and has done well since. He has been undergoing rehabilitation. Neurology recommended cardiac follow-up he has had an event monitor placed which did not demonstrate any significant abnormalities or atrial fibrillation. An echocardiogram performed demonstrated preserved ejection fraction of 55% with no wall motion abnormalities present. He has had no dizziness or diaphoresis no near syncope or syncope. His physical exam demonstrates clear lung tapia regular rate and rhythm and no pedal edema. Intake Vital Signs 02/01/20 Height 5 ft 7.25 in 02/01/20 Weight: 162 lb 02/01/20 BMI 25.2 02/01/20 BP 162/72 H 02/01/20 Respiration 16 02/01/20 Pulse 74 02/01/20 Pulse Oximetry (%) 96 Intake Visit Reasons: CVA, new afib, ref'd at d/c Allergies ciprofloxacin [From Cipro] Allergy (Unknown, Verified 02/01/20 09:43) unknown bee venom protein (honey bee) Allergy (Verified 02/01/20 09:43) Other [id number]-Gll-Sgz Reductase Inhibitor Allergy (Verified 02/01/20 10:24) hallucination dyspnea Medications Aspirin [Aspirin, Baby] 81 mg PO DAILY@0800 tab.chew 01/11/20 [Rx Confirmed 02/01/20] cholecalciferol (vitamin D3) 50 mcg (2,000 unit) capsule 50 mcg PO DAILY 01/31/20 [History Confirmed 02/01/20] folic acid 0.8 mg capsule 0.8 mg PO DAILY 01/31/20 [History Confirmed 02/01/20] Ejection fraction %: 55 to 59 PFSH Medical History History of CVA (cerebrovascular accident) (Acute 01/09/20) Arthritis (Chronic) BPH (benign prostatic hyperplasia) (Chronic) GERD (gastroesophageal reflux disease) (Chronic) Surgical History History of bilateral inguinal hernia repair (Resolved) History of transurethral resection of prostate (Resolved) Social History (Updated 02/01/20 @ 10:[address] Owen Dailey MD) Smoking Status: Former smoker ROS Const Const: Negative for fatigue, weakness, headache(s), frequent falls, difficulty sleeping or excessive sweating Eyes Eyes: Negative for loss of peripheral vision, transient loss of vision, blurry vision, double vision or tunnel vision ENT ENT: Negative for headache(s), dizziness, Nosebleed/epistaxis or balance problems Cardio Chest Pain: No Palpitations: No Edema: None Muscle aches with walking: None Resp Respiratory: Negative for SOB with activity, SOB at rest, SOB orthopnea\SOB lying down, Cough or paroxysmal nocturnal dyspnea GI GI: Negative nausea, vomiting, heartburn or black,tarry stools : Negative for hematuria Musc Musc: Positive for muscle weakness (LUE unable to grasp, little finger movement); negative for muscle aches/ myalgia, joint pain or balance problems Skin Skin: Negative non-healing lesions, rash or unusual bruising Neuro Neuro: Negative for dizziness, lightheadedness, near syncope, syncope, orthostatic symptoms, frequent falls, headache(s), weakness, blurry vision, double vision or lack of coordination Dg Hematologic/Lymphatic: Negative for easy bleeding or easy bruising Endo Endo: Negative for fatigue, excessive sweating or increased thirst/drinking Psych Psych: Negative for anxiety or depression Allergy Allergy/Immunology: Negative for hives, Negative for rash Cardiology Exam Const Appearance: cooperative, healthy appearing, no acute distress, well developed and well groomed Nutritional Appearance: average body habitus and well nourished Orientation: alert, awake and oriented x3 Head Head: normal to inspection, normocephalic and atraumatic Ears: hearing grossly normal bilaterally and external ears normal Nose: external nose normal, nares normal, nasal mucous membranes and turbinates normal, septum normal, no nasal discharge Face and Sinus: face symmetric Mouth: oral mucosae normal, tongue normal, oropharynx normal and moist mucous membranes Teeth and gingiva: dentition normal Throat: posterior oropharynx normal, tonsils normal and uvula midline Eyes General: appearance normal, both eyes and all related structures Eyelids: eyelids normal Conjunctivae: conjunctivae normal Pupils: PERRL, normal by confrontation and accommodation normal EOM: EOM intact bilaterally Neck Neck: normal visual inspection, trachea midline and no JVD JVD: +5 Carotids: normal carotid upstroke and bounding pulses Chest Chest inspection: normal inspection of the chest, symmetric chest movement and normal respiratory effort Auscultation: Bilateral: Clear to Auscultation Cardio Palpation: normal PMI Rate: regular rate Rhythm: regular rhythm Heart sounds: S1 normal, S2 normal and normal, physiologic split S2; negative rub, gallop or murmur GI GI: normal to inspection, soft, no hepatosplenomegaly and bowel sounds present Neuro General: alert, awake, oriented x3, gait normal, moves all extremities and no focal sensory deficit Skin Skin: no rashes or lesions noted Extremities Pulses: Normal: Right Femoral Pulse, Left Femoral Pulse, Right Dorsalis Pedis Pulse, Left Dorsalis Pedis Pulse, Right Posterior Tibial Pulse, Left Posterior Tibial Pulse, Right Radial Pulse, Left Radial Pulse Lower Extremity Edema: None: Bilateral Musculoskel Musculoskeletal: No joint tenderness Psych Psychological: normal affect Assessment & Plan 1. 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 I have discussed the above with him the risk benefits alternatives he understands and agrees to proceed. Orders Orders: Loop Recorder 1 Week 2. Essential (primary) hypertension I10 Plan His blood pressure is under good control at this particular time and I would not recommend we make any other changes. Thank you for allowing me to participate in the care of your patient. Please don't hesitate to call if any issues arise. Orders Orders: Loop Recorder 1 Week Plan Detail Follow Up 6 Months (r) Coding Level of Care Code Off vis,new,level 4 Diagnoses History of CVA (cerebrovascular accident) Z86.73 Essential (primary) hypertension I10 Coding Level of Care Code Off vis,new,level 4 Diagnoses History of CVA (cerebrovascular accident) Z86.73 Essential (primary) hypertension I10 Supplemental Info Supplemental Information Labs LDL Cholesterol 101 mg/dL (0-130) 01/10/20 HDL Cholesterol 47 mg/dL (40-) 01/10/20 Triglycerides 121 mg/dL (-199) 01/10/20 VLDL Cholesterol 24 mg/dL (5-40) 01/10/20 Diagnostics Electrocardiogram 01/09/20 Echocardiogram 01/09/20 Chest X-Ray 01/09/20
--- NOTE | 2020-02-14 08:12 | CL.IE_ITS ---
Patient: CHELLY FERGUSON Study Date: 02/14/2020 Performing: Owen Dailey MD : 1935 Age: 84 Gender: male PROCEDURES PERFORMED [id number] OF LOOP RECORDER INDICATIONS Cryptogenic stroke PROCEDURE DETAILS The patient was brought to the Catheterization Lab in the postabsorptive nonsedated state. Infor med consent was obtained prior to the procedure. Local anesthetic was given subcutaneously to the le ft upper chest area with Lidocaine 2%. Incision was made to the left upper chest. ICM Reveal LINQ was inserted into the pocket. The patient tolerated the procedure well. Estimated Blood Loss: 3 ml's IMPLANTED / EX-PLANTED DEVICES IMPLANTED DEVICE(S): ICM Reveal LINQ - Chief Operator Reformer: [employer], Model # [id number] Serial # [id number] DEVICE PARAMETERS CONCLUSIONS / RECOMMENDATIONS Device Conclusions: Successful implantation of a patient activated loop recorder. Device Recommendations: Follow up with Primary Care Physician PROCEDURE MEDICATIONS Versed 1 mg IV Oxygen: 2 L/min via nasal cannula Antibiotic given in appropriate timeframe. Ancef 2 Gm IV @ 02/14/2020 07:56:19 Signed By Owen Dailey MD On 02/14/2020 08:11:46 Owen Dailey MD
== END 2020-02-14 09:05 | disposition home or self-care (01) ==
LOC: CLSP 06:37
PROVIDERS: PCP Family Medicine; Referring Provider Internal Medicine Cardiovascular Disease; Visit Provider Internal Medicine Cardiovascular Disease
DX: Z86.73 Personal history of transient ischemic attack (TIA), and cerebral infarction without residual deficits (principal); I10 Essential (primary) hypertension; M19.90 Unspecified osteoarthritis, unspecified site; Z88.1 Allergy status to other antibiotic agents; Z88.8 Allergy status to other drugs, medicaments and biological substances; Z79.82 Long term (current) use of aspirin; Z87.891 Personal history of nicotine dependence
CPT/HCPCS: 33285; 99152; J7040

== ENCOUNTER → 2020-03-23 | Outpatient (CLI) | payer MEDICARE, SELFPAY ==
[2020-02-13 11:21] VITALS: BMI 25.3
== END | disposition home or self-care (01) ==
LOC: LABSPEC 11:18
PROVIDERS: PCP Family Medicine; Referring Provider Family Medicine; Visit Provider Family Medicine
DX: R82.90 Unspecified abnormal findings in urine (principal)
CPT/HCPCS: 87077; 87086; 87088; 87186

== ENCOUNTER → 2020-05-03 09:12 | Outpatient (CLI) | payer MEDICARE, SELFPAY ==
[2020-02-13 11:21] VITALS: BMI 25.3
[2020-05-03 11:10] LABS: Anion Gap 6 (5-15); BUN 27 mg/dL (7-18); Calcium,Total 9.1 mg/dL (8.5-10.1); Chloride 109 mmol/L (98-107); Creatinine, Serum 0.93 mg/dL (0.70-1.30); EST Glomerular Filtration Rate 82 mL/min (>60); Est Glom Filt Rate - Afr Amer 100 mL/min (>60); Glucose 97 mg/dL (74-106); Potassium 4.4 mmol/L (3.5-5.1); Sodium Level 139 mmol/L (136-145)
== END ==
PROVIDERS: PCP Family Medicine; Referring Provider Urology; Visit Provider Urology
DX: N31.2 Flaccid neuropathic bladder, not elsewhere classified (principal); R97.20 Elevated prostate specific antigen [PSA]
CPT/HCPCS: 36415; 80048; 84153

== ENCOUNTER → 2020-05-15 09:31 | Outpatient (CLI) | payer MEDICARE, SELFPAY ==
[2020-02-13 11:21] VITALS: BMI 25.3
[2020-05-15 13:08] LABS: Absolute Lymphocyte Count 1.53 X10^3/uL (0.83-4.51); Absolute Neutrophil Count 4.2 X10^3/uL (2.0-7.7); Basophil# 0.07 X10^3/uL; Basophil% 1.1 % (0-1); Eosinophil# 0.11 X10^3/uL; Eosinophils% 1.7 % (0-5); Hematocrit 45.6 % (40-54); Hemoglobin 14.4 g/dL (13.0-16.5); Lymphocyte # 1.53 X10^3/ul (4.0); Lymphocyte % 23.2 % (19-41); Mean Corp Hgb Conc 31.6 g/dL (32-36); Mean Corpuscular Hgb 30.8 pg (27.0-32.0); Mean Corpuscular Volume 97.6 fL (80-94); Mean Platelet Vol. 10.3 fl (6.2-12.0); Monocyte# 0.62 X10^3/uL; Monocyte% 9.4 % (0-10); NRBC Flagged by Analyzer 0 % (0-5); Neutrophil # 4.23 X10^3/uL (2.7-7.7); Neutrophil % 64.1 % (47-70); Platelet Count 277 K/mm3 (150-450); RBC Distribution Width CV 13.4 % (11.6-14.6); RBC Distribution Width SD 48.1 fl (35.1-43.9); Red Blood Count 4.67 M/mm3 (4.6-6.2); White Blood Count 6.6 K/mm3 (4.4-11.0)
[2020-05-15 13:20] LABS: Cholesterol 203 mg/dL (200); High Density Lipoprotein 50 mg/dL; Triglycerides 96 mg/dL; Very Low Density Lipoprotein 19 mg/dL (5-40)
[2020-05-15 13:35] LABS: Hemoglobin A1c 5.3 % (3.8-5.6)
== END ==
PROVIDERS: Nurse Practitioner Adult Health; PCP Family Medicine; Referring Provider Family Medicine; Visit Provider Family Medicine
DX: Z13.220 Encounter for screening for lipoid disorders (principal); Z13.1 Encounter for screening for diabetes mellitus; R53.83 Other fatigue
CPT/HCPCS: 36415; 80061; 83036; 85025

== ENCOUNTER → 2020-06-05 | Outpatient (CLI) | payer MEDICARE, SELFPAY ==
[2020-02-13 11:21] VITALS: BMI 25.3
--- NOTE | 2020-06-05 | IMM_PTH ---
PATIENT: CHELLY FERGUSON LOC: [facility] U#:[id number] AGE/SX: 84/M ROOM: RE06/05/[address]: Dr. Hay Andres MD : 1935 BED: DIS: 06/05/2020 SPEC #: [id number] RECD: 06/07/20 12:30 STATUS: LEEANN REMichael #: [id number] STEPHANIE: 06/05/20 00:[address]: Hay Andres DEPT: IMMUNOHISTOCHEMISTRY RECD BY: Sana Flowers ENTERED: 06/07/20 12:31 SP TYPE: IMMUNO OTHR DR: Dr. Jasvir Brock MD Tissues: A - PROSTATE RIGHT D - PROSTATE LEFT Procedures: 34BE12 (add) P40 (add) 34BE12 (initial) PHYSICIAN & INSTITUTION [place] [id number] SPECIMEN INFORMATION: Tissue Source: A - Right prostate, apex, core biopsy, D - Left prostate, apex, core biopsy Clinical Info: Elevated PSA Specimen Number: [id number] A & D CPT code: 38231, 33302 x3 METHODOLOGY: Deparaffinized sections of prefer/formalin-fixed tissue or PAP/DQ stained slides are incubated with monoclonal/polyclonal antibodies/oligonucleotide probes. Localization is made via biotin free immunoperoxidase method. Appropriate controls are performed and reacted as expected. Results on target cell population are indicated in the following table: RESULTS: ANTIBODY / CLONE RESULT Block A P40 (BC28) negative 34BE12 (34BE12) negative Block D P40 (BC28) negative 34BE12 (34BE12) negative These tests were developed and their performance characteristics determined by [facility]. They may not have been cleared or approved by the U.S. Food and Drug Administration. The FDA has determined that such clearance or approval is not necessary. The above immunohistochemical/dualISH markers are ordered and reviewed by the Pathologist. INTERPRETATION: A. Right prostate, apex, core biopsy: A minute focus of adenocarcinoma. D. Left prostate, apex, core biopsy: Adenocarcinoma. SJ:martha 06/08/2020
--- NOTE | 2020-06-05 14:15 | PROSBIL_PTH ---
PATIENT: CHELLY FERGUSON LOC: [facility] U#:[id number] AGE/SX: 84/M ROOM: RE06/05/[address]: Dr. Hay Andres MD : [id number] BED: DIS: 06/05/2020 SPEC #: [id number] RECD: 06/05/20 15:34 STATUS: LEEANN REMichael #: [id number] STEPHANIE: 06/05/20 14:[address]: Hay Andres DEPT: SURGICAL PATHOLOGY RECD BY: Lila James ENTERED: 06/06/20 08:47 SP TYPE: PROST BX MELONIE DR: Dr. Jasvir Brock MD Tissues: A - PROSTATE RIGHT B - PROSTATE RIGHT C - PROSTATE RIGHT D - PROSTATE LEFT E - PROSTATE LEFT F - PROSTATE LEFT Procedures: PROSTATE BX HEADER OPERATION: Prostate biopsy PRE-OP DIAGNOSIS: Elevated PSA TISSUE SUBMITTED: A - Right apex, B - Right mid, C - Right base, D - Left apex, E - Left mid, F - Left base MICROSCOPIC DIAGNOSIS A. Right prostate, apex, core biopsy: A minute focus of prostatic adenocarcinoma. Ariel grade: 3+3=6 Number of cores involved: 1/1 Proportion of tissue involved: <5% Perineural invasion: Not identified. Greatest tumor length: <0.1 cm Focal high-grade prostatic intraepithelial neoplasia (HGPIN). See comment. B. Right prostate, mid, core biopsy: Prostatic tissue, negative for malignancy. C. Right prostate, base, core biopsy: Prostatic tissue, negative for malignancy. D. Left prostate, apex, core biopsy: Prostatic adenocarcinoma. Ariel grade: 3+3=6 Number of cores involved: 1/1 Proportion of tissue involved: <5% Perineural invasion: Not identified. Greatest tumor length: 0.4 cm, discontinuous. See comment. E. Left prostate, mid, core biopsy: Prostatic adenocarcinoma. Ariel grade: 3+3=6 Number of cores involved: 1/1 Proportion of tissue involved: ~80% Perineural invasion: Not identified. Greatest tumor length: 0.8 cm F. Left prostate, base, core biopsy: Prostatic adenocarcinoma. Ariel grade: 3+3=6 Number of cores involved: 1/1 Proportion of tissue involved: ~80% Perineural invasion: Not identified. Greatest tumor length: 1 cm Focal high-grade prostatic intraepithelial neoplasia (HGPIN). SJ:martha 06/07/2020 COMMENT A & D. Immunohistochemistry ([id number]) supports the above diagnosis. MICROSCOPIC DESCRIPTION Slides are reviewed. GROSS DESCRIPTION A - Received is one container designated prostate, right apex. The specimen consists of one elongated fragment of light valencia-white soft tissue measuring 1.4 cm in length and 0.1 cm in diameter. The specimen is totally submitted in one cassette. B - Received is one container designated prostate, right mid. The specimen consists of one elongated fragments of light valencia-white soft tissue measuring 1.2 cm in length and 0.1 cm in diameter. The specimen is totally submitted in one cassette. C - Received is one container designated prostate, right base. The specimen consists of one elongated fragment of light valencia-white soft tissue measuring 1.5 cm in length and 0.1 cm in diameter. The specimen is totally submitted in one cassette. D - Received is one container designated prostate, left apex. The specimen consists of one elongated fragment of light valencia-white soft tissue measuring 1.1 cm in length and 0.1 cm in diameter. The specimen is totally submitted in one cassette. E - Received is one container designated prostate, left mid. The specimen consists of one elongated fragment of light valencia-white soft tissue measuring 1.4 cm in length and 0.1 cm in diameter. The specimen is totally submitted in one cassette. F - Received is one container designated prostate, left base. The specimen consists of one elongated fragment of light valencia-white soft tissue measuring 1.5 cm in length and 0.1 cm in diameter. The specimen is totally submitted in one cassette. / SJ:rg 06/06/20 TC:0 [facility]: [id number]
== END | disposition home or self-care (01) ==
LOC: LABSPEC 15:52
PROVIDERS: PCP Family Medicine; Referring Provider Urology; Visit Provider Urology
DX: R97.20 Elevated prostate specific antigen [PSA] (principal)
CPT/HCPCS: 88305; 88341; 88342; G0416

== ENCOUNTER 2020-07-07 08:50 | Emergency (ER) | payer MEDICARE, SELFPAY ==
[2020-02-13 11:21] VITALS: BMI 25.3
[2020-07-07 08:51] VITALS: BP 130/87; PULSE 94; RESP 16; TEMP 36.6; O2SAT 96; BMI 23.7
--- NOTE | 2020-07-07 09:10 | ED.VIS.GEN ---
History of Present Illness Chief Complaint: Complaint Informant: Patient Narrative: Patient is an 84-year-old male who presents to the emergency department for foul-smelling urine and chills. He believes that he has a urinary tract infection. Patient has a history of BPH with TURP. What he is experiencing now are typical symptoms for his UTIs. He was try to get a hold of his urologist to send him in an antibiotic but he could not get through to them. He denies having any fevers. Denies any abdominal or back pain. The last time he was on the antibiotic was in January of last year. He does straight cath himself twice a day. Patient's chills has since stopped. This only occurred last night. He has no other complaints at this time. Past Medical History - Allergies and Home Meds Allergies/Adverse Reactions: Allergies ciprofloxacin [From Cipro] Allergy (Unknown, Verified 07/07/20 08:53) unknown bee venom protein (honey bee) Allergy (Verified 07/07/20 08:53) Other Ubqmmrh-Qla-Ptj Reductase Inhibitor Allergy (Verified 07/07/20 08:53) hallucination dyspnea Primary Care Physician: Jasvir Brock MD [Primary Care Provider] - 3-5 Days Prior records reviewed: Yes Past Medical History: - - CVA Surgical History: TURP Smoking Status: Former smoker - Family History Maternal Family History: Reports: No pertinent history Paternal Family History: Reports: No pertinent history Review of Systems All systems negative except as indicated General: Reports: Chills. Denies: Fever, Sweats Eyes: Denies: Visual changes - bilaterally, Diplopia ENT: Denies: Rhinorrhea, Sore throat Cardiovascular: Denies: Chest pain, Palpitations Respiratory: Reports: Cough - Baseline. Denies: Dyspnea, Dyspnea on exertion Gastrointestinal: Denies: Abdominal pain, Nausea, Vomiting, Diarrhea Genitourinary: Reports: Frequency. Denies: Dysuria, Hematuria Musculoskeletal: Denies: Back pain, Extremity Pain Skin: Denies: Rash, Wounds Neurological: Denies: Headache, Weakness, Numbness Physical Exam Vital Signs/Narrative: Vital Signs Temp Pulse Resp BP Pulse Ox 07/07/20 08:51 97.9 F 94 16 130/87 H 96 Inital Vital Signs reviewed: Yes General: Well nourished, Well developed, No Acute Distress Head: Normocephalic, Atraumatic Eyes: Perrl, EOMI ENT: Moist mucous membranes, No rhinorrhea Neck: Supple, Nontender Cardiovascular: Regular rate, Regular rhythm, No murmurs Respiratory: No distress, CTA bilaterally, Chest nontender Abdomen: Soft, Nontender, Nondistended, Normal bowel sounds Back: Nontender, Normal Inspection. Negative for: CVA tenderness Extremities: Nontender, No edema Skin: Normal color, No rash Neurological: Alert, Oriented x3, - - Previous left arm deficit present Psychological: Normal affect, Normal Mood Diagnostic/Tx/Re-eval - Medical Decision Making Patient presents to the emergency department for a suspicion of having a urinary tract infection. Does straight cath himself. He has had UTIs before in the past. He is having a foul-smelling urine and did have chills last night. Upon arrival to the emergency department vital signs within normal limits and he is afebrile. Will check urinalysis at this time. Patient's urinalysis showed rare bacteria, white blood cells and leukocyte esterase. Given these findings we will place him on an Keflex. Urine will be sent for culture. With normal vital signs and benign physical exam I do not feel he requires any lab work at this time. He will follow up with his urologist otherwise. Return precautions are reviewed with him including any developing significant back pain, fever/chills. He understands and is agreeable this plan. Will discharge home in stable condition. All questions answered. ED Disposition - Plan for ED Patient: Disposition: Home or Assisted Living Diagnosis: UTI (urinary tract infection) Instructions: ED Bladder Infection, Male (Adult) Prescriptions: Cephalexin [Keflex] 500 mg PO Q12 #14 capsule Referrals: Jasvir Brock MD [Primary Care Provider] - 3-5 Days
[2020-07-07 09:48] VITALS: BP 143/84; PULSE 88; RESP 21; TEMP 36.3; O2SAT 90
[2020-07-07 09:49] LABS: Mucous, Urine 0 SEEN /hpf (<or=2+)
[2020-07-07 09:52] LABS: Color, Urine Yellow (Yellow); Glucose, Dipstick Normal (Normal); Ketone-Dipstick Negative (Negative); Leukocyte Esterase-Dipstick 500 /ul (Negative); Nitrite-Dipstick Negative (Negative); Occult Blood-Urine 10 /ul (Negative); Protein-Dipstick 15 mg/dl (Negative); Urine Bilirubin Dipstick Negative (Negative); Urine Clarity Sl. Cloudy (Clear); Urine Urobilinogen Normal (Normal)
[2020-07-07 09:58] LABS: Bacteria RARE /hpf (None Seen); Red Blood Cells-Urine 0-5 SEEN /hpf (0-5); Squamous Epithelial Cells - UA 0-5 SEEN /hpf (0-5); White Blood Cells 25-50 SEEN /hpf (0-5)
[2020-07-07 10:23] VITALS: PULSE 86; RESP 15; O2SAT 98
== END 2020-07-07 10:24 | disposition home or self-care (01) ==
PROVIDERS: Emergency Provider Emergency Medicine; PCP Family Medicine
DX: N39.0 Urinary tract infection, site not specified (principal); Z87.891 Personal history of nicotine dependence; Z86.73 Personal history of transient ischemic attack (TIA), and cerebral infarction without residual deficits
CPT/HCPCS: 81001; 87077; 87086; 87088; 87186; 99283; P9612

== ENCOUNTER 2020-07-09 10:15 | Emergency (ER) | payer MEDICARE, SELFPAY ==
[2020-07-09 10:17] VITALS: BP 136/76; PULSE 74; RESP 16; TEMP 36.3; O2SAT 98; BMI 25.0
--- NOTE | 2020-07-09 10:35 | EKG12_ITS ---
Test Reason : COMPLAINT Blood Pressure : / mmHG Vent. Rate : 064 BPM Atrial Rate : 064 BPM P-R Int : 152 ms QRS Dur : 092 ms QT Int : 424 ms P-R-T Axes : 073 026 079 degrees QTc Int : 437 ms Normal sinus rhythm Cannot rule out Inferior infarct , age undetermined Abnormal ECG Confirmed by BARB VILLATORO, ELHAM ([id number]), scientific editor DORIE MARTINEZ ([id number]) on 07/13/2020 2:24:16 PM Referred By: Confirmed By:ELHAM DAY MD
--- NOTE | 2020-07-09 10:35 | RAD_ITS ---
STUDY: X-RAY CHEST REASON FOR EXAM: Male, 84 years old. sepsis evaluation TECHNIQUE: Single AP portable view of the chest. COMPARISON: 01/09/2020. FINDINGS: Loop recorder device. Cardiac silhouette unremarkable. Pulmonary vascularity unremarkable. Aorta minimally calcified. No focal patchy airspace opacities. No pleural effusions. Upper abdomen unremarkable. Osseous structures intact with degenerative features. No pneumothorax. RAD/Chest 1 View (Portable) IMPRESSION: No acute cardiopulmonary findings Electronically Signed: Alec Vargas DO at 11:33 EDT Tel , Service support ,
--- NOTE | 2020-07-09 10:40 | ED.VIS.GEN ---
History of Present Illness Chief Complaint: Complaint Informant: Patient Narrative: 84-year-old male states he was diagnosed with a UTI on Thursday and started on an unknown antibiotic. He states that he has been having chills and generalized weakness. Today however he felt much better. But he spoke with his urologist as he has had a history of BPH/TURP and 6 weeks ago had biopsies. He tells me that their concern is that he may be septic. He denies any fevers. His vital signs were noted to be stable in triage and his notes that he has been hypertensive at home. He ate a good breakfast today. The patient straight caths several times a day. His urine grew out E. coli that was pansensitive. 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 (3) History of loop recorder Status: Chronic Past Medical History - Allergies and Home Meds Allergies/Adverse Reactions: Allergies ciprofloxacin [From Cipro] Allergy (Unknown, Verified 07/09/20 10:16) unknown bee venom protein (honey bee) Allergy (Verified 07/09/20 10:16) Other Zvehqaf-Iil-Lep Reductase Inhibitor Allergy (Verified 07/09/20 10:16) hallucination dyspnea Primary Care Physician: Jasvir Brock MD [Primary Care Provider] - Past Medical History: - - BPH Surgical History: TURP Lives: Spouse/ Significant Other Smoking Status: Former smoker Drugs: None - Family History Maternal Family History: Reports: No pertinent history Paternal Family History: Reports: No pertinent history Review of Systems General: Reports: Chills, Malaise. Denies: Fever, Sweats Eyes: Denies: Visual changes - bilaterally, Diplopia ENT: Denies: Rhinorrhea, Sore throat Cardiovascular: Denies: Chest pain, Palpitations Respiratory: Denies: Dyspnea, Cough, Dyspnea on exertion Gastrointestinal: Denies: Abdominal pain, Nausea, Vomiting, Diarrhea, Melena, Hematochezia Genitourinary: Reports: - - Patient straight caths. Denies: Dysuria, Hematuria, Frequency Musculoskeletal: Denies: Back pain, Extremity Pain Skin: Denies: Rash, Wounds Neurological: Denies: Headache, Weakness, Numbness Physical Exam Vital Signs/Narrative: Vital Signs Temp Pulse Resp BP Pulse Ox 07/09/20 10:17 97.4 F L 74 16 136/76 H 98 Inital Vital Signs reviewed: Yes General: Well nourished, Well developed, No Acute Distress Head: Normocephalic, Atraumatic Eyes: Perrl, EOMI ENT: Moist mucous membranes, No rhinorrhea Neck: Supple, Nontender Cardiovascular: Regular rate, Regular rhythm, No murmurs Respiratory: No distress, CTA bilaterally, Chest nontender Abdomen: Soft, Nontender, Nondistended, Normal bowel sounds Back: Nontender, Normal Inspection Extremities: Nontender, No edema Skin: Normal color, No rash Neurological: Alert, Oriented x3, Cranial nerves II-XII grossly intact, Normal Strength, Normal Sensation Psychological: Normal affect, Normal Mood Diagnostic/Tx/Re-eval Clinical Impression(s) from Imaging Studies Chest X-Ray 07/09/20 10:35 IMPRESSION: No acute cardiopulmonary findings Electronically Signed: Alec Vargas, at 11:33 EDT Tel , Service support , Laboratory Last Values WBC 9.2 K/mm3 (4.4-11.0) 07/09/20 10:50 RBC 4.47 M/mm3 (4.6-6.2) L 07/09/20 10:50 Hgb 14.3 g/dL (13.0-16.5) 07/09/20 10:50 Hct 43.5 % (40-54) 07/09/20 10:50 MCV 97.3 fL (80-94) H 07/09/20 10:50 MCH 32.0 pg (27.0-32.0) 07/09/20 10:50 MCHC 32.9 g/dL (32-36) 07/09/20 10:50 RDW Std Deviation 46.8 fl (35.1-43.9) H 07/09/20 10:50 RDW Coeff of Isiah 13.2 % (11.6-14.6) 07/09/20 10:50 Plt Count 264 K/mm3 (150-450) 07/09/20 10:50 MPV 9.7 fl (6.2-12.0) 07/09/20 10:50 Immature Gran % (Auto) 0.700 % (0.0-0.9) 07/09/20 10:50 Neut % (Auto) 68.0 % (47-70) 07/09/20 10:50 Lymph % (Auto) 17.4 % (19-41) L 07/09/20 10:50 Ballard % (Auto) 12.6 % (0-10) H 07/09/20 10:50 Eos % (Auto) 0.8 % (0-5) 07/09/20 10:50 Baso % (Auto) 0.5 % (0-1) 07/09/20 10:50 Absolute Neuts (auto) 6.2 X10^3/uL (2.0-7.7) 07/09/20 10:50 Absolute Lymphs (auto) 1.60 X10^3/uL (0.83-4.51) 07/09/20 10:50 Nucleated RBC % 0 % (0-5) 07/09/20 10:50 PT 14.2 SECONDS (11.7-14.9) 07/09/20 10:50 INR 1.2 07/09/20 10:50 APTT 27.0 Seconds (24.1-36.2) 07/09/20 10:50 Sodium 137 mmol/L (136-145) 07/09/20 10:50 Potassium 3.7 mmol/L (3.5-5.1) 07/09/20 10:50 Chloride 105 mmol/L (98-107) 07/09/20 10:50 Carbon Dioxide 29.0 mmol/L (21.0-32.0) 07/09/20 10:50 Anion Gap 3 (5-15) L 07/09/20 10:50 BUN 18 mg/dL (7-18) 07/09/20 10:50 Creatinine 1.08 mg/dL (0.70-1.30) 07/09/20 10:50 Estim Creat Clear Calc 48.45 ml/min 07/09/20 10:50 Est GFR (MDRD) Af Amer 84 mL/min (>60) 07/09/20 10:50 Est GFR (MDRD) Non-Af 69 mL/min (>60) 07/09/20 10:50 BUN/Creatinine Ratio 16.7 RATIO (10-20) 07/09/20 10:50 Glucose 85 mg/dL (74-106) 07/09/20 10:50 Lactic Acid 1.0 mmol/L (0.4-1.9) 07/09/20 10:50 Calcium 9.5 mg/dL (8.5-10.1) 07/09/20 10:50 Total Bilirubin 0.60 mg/dL (0.20-1.00) 07/09/20 10:50 AST 14 U/L (15-37) L 07/09/20 10:50 ALT 25 U/L (16-61) 07/09/20 10:50 Alkaline Phosphatase 51 U/L (45-117) 07/09/20 10:50 Total Protein 7.8 g/dL (6.4-8.2) 07/09/20 10:50 Albumin 3.7 g/dL (3.2-5.0) 07/09/20 10:50 Globulin 4.1 g/dL (2.2-4.2) 07/09/20 10:50 Albumin/Globulin Ratio 0.9 RATIO (0.9-2.4) 07/09/20 10:50 Urine Color Yellow (Yellow) 07/09/20 11:57 Urine Clarity Sl. Cloudy (Clear) 07/09/20 11:57 Urine pH 6.0 (5.0 - 8.0) 07/09/20 11:57 Ur Specific [place] 1.015 (1.002-1.030) 07/09/20 11:57 Urine Protein 30 mg/dl (Negative) H 07/09/20 11:57 Urine Glucose (UA) Normal mg/dl (Normal) 07/09/20 11:57 Urine Ketones Negative mg/dl (Negative) 07/09/20 11:57 Urine Occult Blood 25 /ul (Negative) H 07/09/20 11:57 Urine Nitrite Negative (Negative) 07/09/20 11:57 Urine Bilirubin Negative mg/dL (Negative) 07/09/20 11:57 Urine Urobilinogen Normal mg/dl (Normal) 07/09/20 11:57 Ur Leukocyte Esterase 500 /ul (Negative) H 07/09/20 11:57 Urine RBC 0-5 SEEN /hpf (0-5) 07/09/20 11:57 Urine WBC 50-100 SEEN /hpf (0-5) 07/09/20 11:57 Ur Squamous Epith Cells 0 SEEN /hpf (0-5) 07/09/20 11:57 Amorphous Sediment 1+ 07/09/20 11:57 Urine Bacteria 1+ /hpf (None Seen) 07/09/20 11:57 Urine Mucus 0 SEEN /hpf (<or=2+) 07/09/20 11:57 - EKG Initial EKG Interpretation: Sinus Rhythm - EKG demonstrates a normal sinus rhythm at a rate of 64. No concerning features of ACS or ectopy noted. - Medical Decision Making My interpretation of the single view portable chest x-ray is no acute cardiopulmonary process. Radiology agrees. White count is normal. Lactic acid is normal. He has no vital signs that are abnormal to qualify him for sepsis or laboratory findings consistent with sepsis. He still has some evidence of UTI but he just took his fourth antibiotic dose. His urine culture grew out E. coli and he is currently on Keflex which according to his sensitivities should work. He is otherwise feeling well today. Patient to be discharged home follow-up with his doctors` ED Disposition - Plan for ED Patient: Disposition: Home or Assisted Living Diagnosis: UTI (urinary tract infection), Chills Instructions: ED Bladder Infection, Male (Adult) Referrals: Jasvir Brock MD [Primary Care Provider] - As Needed Hay Andres MD [STAFF PHYSICIAN] - Keep Judy appointment
[2020-07-09 11:09] LABS: Absolute Neutrophil Count 6.2 X10^3/uL (2.0-7.7); Basophil# 0.05 X10^3/uL; Basophil% 0.5 % (0-1); Eosinophil# 0.07 X10^3/uL; Eosinophils% 0.8 % (0-5); Hematocrit 43.5 % (40-54); Hemoglobin 14.3 g/dL (13.0-16.5); Lymphocyte % 17.4 % (19-41); Mean Corp Hgb Conc 32.9 g/dL (32-36); Mean Corpuscular Volume 97.3 fL (80-94); Mean Platelet Vol. 9.7 fl (6.2-12.0); Monocyte# 1.16 X10^3/uL; Monocyte% 12.6 % (0-10); NRBC Flagged by Analyzer 0 % (0-5); Neutrophil # 6.24 X10^3/uL (2.7-7.7); Platelet Count 264 K/mm3 (150-450); RBC Distribution Width CV 13.2 % (11.6-14.6); RBC Distribution Width SD 46.8 fl (35.1-43.9); Red Blood Count 4.47 M/mm3 (4.6-6.2); White Blood Count 9.2 K/mm3 (4.4-11.0)
[2020-07-09 11:15] LABS: International Normalized Ratio 1.2; Prothrombin Time (Protime)PT. 14.2 SECONDS (11.7-14.9)
[2020-07-09 11:26] LABS: ALB/GLOB Ratio 0.9 RATIO (0.9-2.4); AST(SGOT) 14 U/L (15-37); Alanine Aminotransfer ALT/SGPT 25 U/L (16-61); Albumin, Serum 3.7 g/dL (3.2-5.0); Alkaline Phosphatase 51 U/L (45-117); Anion Gap 3 (5-15); BUN 18 mg/dL (7-18); BUN/Creat Ratio 16.7 RATIO (10-20); Calcium,Total 9.5 mg/dL (8.5-10.1); Chloride 105 mmol/L (98-107); Creatinine, Serum 1.08 mg/dL (0.70-1.30); EST Glomerular Filtration Rate 69 mL/min (>60); Est Glom Filt Rate - Afr Amer 84 mL/min (>60); Estimated Creatinine Clearance 48.45 ml/min; Globulin 4.1 g/dL (2.2-4.2); Glucose 85 mg/dL (74-106); Potassium 3.7 mmol/L (3.5-5.1); Protein, Total 7.8 g/dL (6.4-8.2); Sodium Level 137 mmol/L (136-145)
[2020-07-09 11:42] VITALS: BP 118/83; PULSE 63; RESP 17; TEMP 36.8; O2SAT 96
[2020-07-09 12:00] VITALS: BP 129/69; PULSE 61; RESP 18; TEMP 36.8; O2SAT 95
[2020-07-09 12:04] LABS: Mucous, Urine 0 SEEN /hpf (<or=2+); Squamous Epithelial Cells - UA 0 SEEN /hpf (0-5)
[2020-07-09 12:14] LABS: Color, Urine Yellow (Yellow); Glucose, Dipstick Normal (Normal); Ketone-Dipstick Negative (Negative); Leukocyte Esterase-Dipstick 500 /ul (Negative); Nitrite-Dipstick Negative (Negative); Occult Blood-Urine 25 /ul (Negative); Protein-Dipstick 30 mg/dl (Negative); Specific Gravity, Urine 1.015 (1.002-1.030); Urine Bilirubin Dipstick Negative (Negative); Urine Clarity Sl. Cloudy (Clear); Urine Urobilinogen Normal (Normal)
[2020-07-09 12:38] LABS: Amorphous Sediment 1+; Bacteria 1+ /hpf (None Seen); Red Blood Cells-Urine 0-5 SEEN /hpf (0-5); White Blood Cells 50-100 SEEN /hpf (0-5)
[2020-07-09 13:11] VITALS: BP 124/77; PULSE 62; RESP 15; O2SAT 98
== END 2020-07-09 13:14 | disposition home or self-care (01) ==
PROVIDERS: Emergency Provider Emergency Medicine; PCP Family Medicine
DX: N39.0 Urinary tract infection, site not specified (principal); B96.20 Unspecified Escherichia coli [E. coli] as the cause of diseases classified elsewhere; R68.83 Chills (without fever); N40.0 Benign prostatic hyperplasia without lower urinary tract symptoms; I10 Essential (primary) hypertension; Z79.82 Long term (current) use of aspirin; Z87.891 Personal history of nicotine dependence; Z86.73 Personal history of transient ischemic attack (TIA), and cerebral infarction without residual deficits
CPT/HCPCS: 36415; 71045; 80053; 81001; 83605; 85025; 85610; 85730; 87040; 93005; 99283; A4216

== ENCOUNTER → 2020-07-12 09:48 | Outpatient (CLI) | payer MEDICARE, SELFPAY ==
[2020-07-09 10:17] VITALS: BMI 25.0
[2020-07-12 12:16] LABS: Hemoglobin 14.2 g/dL (13.0-16.5); Mean Corp Hgb Conc 31.6 g/dL (32-36); Mean Corpuscular Hgb 31.6 pg (27.0-32.0); Mean Corpuscular Volume 100.2 fL (80-94); Platelet Count 341 K/mm3 (150-450); RBC Distribution Width CV 13.1 % (11.6-14.6); RBC Distribution Width SD 48.5 fl (35.1-43.9); Red Blood Count 4.49 M/mm3 (4.6-6.2); White Blood Count 6.4 K/mm3 (4.4-11.0)
[2020-07-12 12:36] LABS: ALB/GLOB Ratio 0.9 RATIO (0.9-2.4); AST(SGOT) 24 U/L (15-37); Alanine Aminotransfer ALT/SGPT 31 U/L (16-61); Albumin, Serum 3.7 g/dL (3.2-5.0); Alkaline Phosphatase 52 U/L (45-117); Anion Gap 3 (5-15); BUN 24 mg/dL (7-18); BUN/Creat Ratio 27.8 RATIO (10-20); Calcium,Total 9.5 mg/dL (8.5-10.1); Chloride 107 mmol/L (98-107); Creatinine, Serum 0.86 mg/dL (0.70-1.30); EST Glomerular Filtration Rate 90 mL/min (>60); Est Glom Filt Rate - Afr Amer 109 mL/min (>60); Globulin 4.3 g/dL (2.2-4.2); Glucose 94 mg/dL (74-106); Sodium Level 138 mmol/L (136-145)
== END ==
PROVIDERS: PCP Family Medicine; Referring Provider Family Medicine; Visit Provider Family Medicine
DX: R19.4 Change in bowel habit (principal)
CPT/HCPCS: 36415; 80053; 85027

== ENCOUNTER → 2020-07-17 15:38 | Outpatient (CLI) | payer MEDICARE, SELFPAY ==
[2020-07-09 10:17] VITALS: BMI 25.0
--- NOTE | 2020-07-17 15:43 | CT_ITS ---
STUDY: CT ABDOMEN AND PELVIS WITHOUT CONTRAST REASON FOR EXAM: Male, 84 years old. ABD PAIN,PROSTATE CA RADIATION DOSAGE (If Supplied By Facility): CTDIvol = ( 7.70 ) mGy, DLP = ( 398.46 ) mGycm TECHNIQUE: Transaxial images were obtained from the dome of the diaphragm to the symphysis pubis without oral contrast, and without intravenous contrast. Sagittal and coronal images were reconstructed. Individualized dose optimization techniques were used for this CT. COMPARISON: 10/09/2019 FINDINGS: There are chronic interstitial fibrotic changes of the lung bases. The visualized portions of the heart are within normal limits. Normal liver. Stable punctate 1 to 2 mm calcification near the esperanza hepatis, noted on previous study and do not suspect it is within the common hepatic duct. Normal gallbladder and extrahepatic biliary system. Normal spleen. Normal pancreas. Normal bilateral adrenal glands. No obstructive uropathy, there are bilateral simple renal cysts, no specific follow-up needed Normal visualized stomach. Normal small intestine. Retained stool noted throughout the colon, scattered sigmoid diverticulosis without CT evidence of acute diverticulitis. The appendix is visualized and appears normal. Appendix best seen on coronal recon image 47 There is diffuse atherosclerotic calcification of the abdominal aorta, without a demonstrated aneurysm. Normal inferior vena cava. Normal retroperitoneum. Normal urinary bladder. Normal abdominal wall. There are diffuse degenerative changes of the visualized lumbar spine, and pelvis. CT/Abdomen/Pelvis without Cont IMPRESSION: No obstructive uropathy, stable simple renal cysts, no specific follow-up needed. Likely age-related induration of the perinephric fat. Scattered sigmoid diverticulosis, no CT evidence of acute diverticulitis Normal appendix visualized No free intraperitoneal fluid, air, or suspicious adenopathy. Electronically Signed: Jonny Boucher MD at 16:55 EDT , Service support ,
== END ==
PROVIDERS: PCP Family Medicine; Referring Provider Urology; Visit Provider Urology
DX: C61 Malignant neoplasm of prostate (principal); N39.0 Urinary tract infection, site not specified
CPT/HCPCS: 74176; 87086; 87088; 87186

== ENCOUNTER → 2020-08-20 12:51 | Outpatient (CLI) | payer MEDICARE, SELFPAY ==
[2020-07-31 10:58] VITALS: BMI 25.0
--- NOTE | 2020-08-20 12:53 | CT_ITS ---
STUDY: CT CHEST WITHOUT CONTRAST REASON FOR EXAM: Male, 84 years old. PULMONARY NODULE RADIATION DOSAGE (If Supplied By Facility): CTDIvol = ( 8.87 ) mGy, DLP = ( 288.68 ) mGycm TECHNIQUE: Transaxial imaging was performed without the administration of intravenous contrast material. Multiplanar coronal and sagittal images were reformatted. Individualized dose optimization techniques were used for this CT. COMPARISON: CT chest 04/05/2019. FINDINGS: The lungs are normally expanded with mild emphysematous changes in the lung apices. Small bullae within the bilateral lower lobe more severe at the left lung base. Minimal posterior dependent atelectasis. There is small focus of groundglass opacity with minimal surrounding scarring versus spiculation measuring 1.1 cm essentially stable or slightly decreased in the interval. No other sites suspicious for nodules seen. There is no demonstrated pleural abnormality. There are calcifications of the coronary arteries. Normal cardiac size Normal mediastinum. Normal hilar regions. Normal unenhanced pulmonary arteries. There is atherosclerotic calcification of the aortic arch with tortuosity and elongation of the aortic arch and descending thoracic aorta. Multilevel degenerative disease of the spine. Nonspecific bilateral perinephric stranding otherwise upper abdominal structures unremarkable. CT/Chest without Contrast IMPRESSION: Emphysematous changes as described. Minimal posterior dependent atelectasis otherwise no acute cardiopulmonary disease. No pleural effusion or pneumothorax. Stable nodularity suggestive of scarring versus a solid nodule versus atelectasis in the left lower lobe as described, essentially stable or slightly decreased in the interval. Follow-up recommended with CT chest at 6-12 months depending on risk factors for a period of 2 years from initial observation to document the stability. Electronically Signed: Jennifer Upton MD at 2:56 EDT , Service support ,
== END ==
PROVIDERS: PCP Family Medicine; Referring Provider Internal Medicine Pulmonary Disease; Visit Provider Internal Medicine Pulmonary Disease
DX: R91.1 Solitary pulmonary nodule (principal)
CPT/HCPCS: 71250

== ENCOUNTER → 2020-09-06 08:45 | Outpatient (CLI) | payer MEDICARE, SELFPAY ==
[2020-07-31 10:58] VITALS: BMI 25.0
[2020-09-06 10:26] LABS: Absolute Lymphocyte Count 1.47 X10^3/uL (0.83-4.51); Basophil# 0.06 X10^3/uL; Basophil% 0.4 % (0-1); Eosinophil# 0.04 X10^3/uL; Eosinophils% 0.3 % (0-5); Hematocrit 42.7 % (40-54); Hemoglobin 13.6 g/dL (13.0-16.5); Lymphocyte # 1.47 X10^3/ul (0.83-4.51); Lymphocyte % 10.3 % (19-41); Mean Corp Hgb Conc 31.9 g/dL (32-36); Mean Corpuscular Hgb 31.3 pg (27.0-32.0); Mean Corpuscular Volume 98.4 fL (80-94); Mean Platelet Vol. 10.3 fl (6.2-12.0); Monocyte# 1.56 X10^3/uL; NRBC Flagged by Analyzer 0 % (0-5); Neutrophil # 11.03 X10^3/uL (2.7-7.7); Neutrophil % 77.4 % (47-70); POSITIVE DIFFERENTIAL YES; Platelet Count 296 K/mm3 (150-450); RBC Distribution Width CV 13.2 % (11.6-14.6); RBC Distribution Width SD 47.7 fl (35.1-43.9); Red Blood Count 4.34 M/mm3 (4.6-6.2); White Blood Count 14.2 K/mm3 (4.4-11.0)
[2020-09-06 10:33] LABS: Differential Indicated SCAN CRITERIA MET
[2020-09-06 10:42] LABS: ALB/GLOB Ratio 0.9 RATIO (0.9-2.4); AST(SGOT) 18 U/L (15-37); Alanine Aminotransfer ALT/SGPT 22 U/L (16-61); Albumin, Serum 3.6 g/dL (3.2-5.0); Alkaline Phosphatase 56 U/L (45-117); Anion Gap 8 (5-15); BUN 19 mg/dL (7-18); BUN/Creat Ratio 18.8 RATIO (10-20); Calcium,Total 9.2 mg/dL (8.5-10.1); Chloride 102 mmol/L (98-107); Creatinine, Serum 1.01 mg/dL (0.70-1.30); EST Glomerular Filtration Rate 75 mL/min (>60); Est Glom Filt Rate - Afr Amer 91 mL/min (>60); Globulin 4.2 g/dL (2.2-4.2); Glucose 109 mg/dL (74-106); Protein, Total 7.8 g/dL (6.4-8.2); Sodium Level 137 mmol/L (136-145); T4 Free Direct 1.06 ng/dL (0.76-1.46); Thyroid Stim Hormone (TSH) 1.09 uIU/mL (0.358-3.74)
[2020-09-06 10:58] LABS: Vitamin B12 329 pg/mL (211-911); Vitamin D,25 Hydroxy 28.4 ng/mL
[2020-09-06 11:26] LABS: Platelet Estimate ADEQUATE (ADEQ); Red Cell Morphology NORM C+C NORMAL (NORM C&C)
[2020-09-07 14:21] LABS: Pathologist Review Reviewed
== END ==
PROVIDERS: PCP Family Medicine; Referring Provider Family Medicine; Visit Provider Family Medicine
DX: R53.83 Other fatigue (principal)
CPT/HCPCS: 36415; 80053; 82306; 82607; 84439; 84443; 85025

== ENCOUNTER → 2020-09-11 09:51 | Outpatient (CLI) | payer MEDICARE, SELFPAY ==
[2020-02-13 11:21] VITALS: BMI 25.3
[2020-07-31 10:58] VITALS: BMI 25.0
== END ==
PROVIDERS: PCP Family Medicine; Referring Provider Urology; Visit Provider Urology
DX: R97.20 Elevated prostate specific antigen [PSA] (principal)
CPT/HCPCS: 36415; 84153

== ENCOUNTER → 2020-10-03 15:00 | Outpatient (CLI) | payer MEDICARE, SELFPAY ==
[2020-07-31 10:58] VITALS: BMI 25.0
== END ==
PROVIDERS: PCP Family Medicine; Referring Provider Family Medicine; Visit Provider Family Medicine
DX: N39.0 Urinary tract infection, site not specified (principal)
CPT/HCPCS: 87086

== ENCOUNTER 2020-12-02 19:02 | Emergency (ER) | payer MEDICARE, SELFPAY ==
[2020-12-02 19:04] VITALS: BP 100/68; PULSE 80; RESP 16; TEMP 37.2; O2SAT 94; BMI 23.9
--- NOTE | 2020-12-02 20:04 | EDS_ITS ---
HPI History of Present Illness Chief Complaint: Cough Informant: patient and spouse/S.O. Narrative Narrative: Patient's coughing today. He states it is dry. He is not having chest pain. He has no shortness of breath. He does not feel ill. No myalgias. No fevers chills. No GI symptoms. He is just concerned because of Covid. He has not had Covid vaccinations. He has not been around anyone with that that he knows of. No hemoptysis. He quit smoking in 1990. However, he has had many chemical exposures. He also used to work [employer] for the [employer]. He has used an inhaler before but has never been diagnosed with COPD. He does have an albuterol inhaler at home but he did not try it. Again, he does not feel short of breath at all. He just has a dry cough. [facility] Medical History Arthritis BPH (benign prostatic hyperplasia) Essential (primary) hypertension GERD (gastroesophageal reflux disease) History of CVA (cerebrovascular accident) (01/09/20) Lung nodules Home Medications cholecalciferol (vitamin D3) 50 mcg (2,000 unit) capsule 4,000 mcg PO DAILY 01/31/20 [History Last Taken Unknown] folic acid 0.8 mg capsule 0.8 mg PO DAILY 01/31/20 [History Last Taken Unknown] Allergy/AdvReac Type Severity Reaction Status Date / Time ciprofloxacin [From Cipro] Allergy Unknown unknown Verified 12/02/20 19:08 bee venom protein (honey bee) Allergy Other Verified 12/02/20 19:08 Xtnsiuz-Oow-Rcj Reductase Allergy hallucination Verified 12/02/20 19:08 Inhibitor dyspnea Surgical History History of bilateral inguinal hernia repair History of loop recorder (02/14/20) History of transurethral resection of prostate Social History Smoking Status: Former smoker alcohol intake: never substance use type: does not use ROS ROS ED Constitutional Constitutional ED: Denies chills, fever(s) or sweats Eyes Eyes: Denies change in vision ENT ENT ED: Denies ear pain, rhinorrhea or sore throat Cardiovascular Cardiovascular: Denies chest pain, orthopnea, palpitations, paroxysmal nocturnal dyspnea or racing heartbeat Respiratory/Chest Respiratory/Chest: Reports cough; Denies dyspnea, dyspnea on exertion, orthopnea, paroxysmal nocturnal dyspnea or sputum Gastrointestinal Gastrointestinal: Denies abdominal pain, nausea or vomiting Genitourinary Genitourinary ED: Reports other Details: Patient self caths himself about 2 times a day. This is chronic and unchanged. Musculoskeletal Musculoskeletal: Denies arthralgias or myalgias Integumentary Denies rash Neurologic Neurologic: Reports other Details: He had stroke with left-sided arm residual but this is not new or different. ; Denies headache(s), paresthesias or weakness Endocrine Endocrinology: Denies polydipsia or polyuria Allergic/Immunologic Allergic/Immunologic ED: Denies urticaria EXAM Physical Exam Const Vital Signs: 12/02/20 19:04 12/02/20 19:19 12/02/20 20:17 Temperature 98.9 F Temperature Source Oral Pulse Rate 80 75 Respiratory Rate 16 16 Respiratory Effort Normal Non-Labored Respiratory Depth Normal Respiratory Pattern Normal Normal Blood Pressure 100/68 Blood Pressure Mean 78 Pulse Ox 94 Oxygen Delivery Method Room Air Room Air Positive well nourished and well developed Constitutional Narrative: Despite this patient's age and complaint, he looks great when I walk in the room. He is not sick appearing. He is awake alert and fully appropriate. He does have a dry cough. General Appearance ED: well developed and NAD HEENT Negative for trauma or tenderness Eyes PERRL and EOMs intact bilaterally Neck no lymphadenopathy and no JVD Neck Narrative: No stridor or lymphadenopathy. Chest Wall inspection of chest normal Resp normal respiratory effort Resp Narrative: Patient has a very slight expiratory wheeze or more of a prolonged expiration. But I hear no rales or rhonchi. Auscultation: rales and rhonchi Cardio regular rate, regular rhythm and no murmurs GI normal to inspection, nondistended, normoactive bowel sounds and non-tender Palpation: soft Back/Spine no CVA tenderness Extremity normal to inspection General Extremety ED: Negative for edema or tenderness General Extremity: Negative for edema Neuro oriented x3 Neuro Narrative: Left upper extremity weakness which is chronic. Sensorium / Orientation: alert Psych mental status grossly normal Skin no rashes or lesions noted and No no wounds MDM MDM MDM Narrative Medical decision making narrative: Chest x-ray shows really chronic changes. Covid is positive. However, the patient feels well. We will get him home. I did talk to him about monoclonal therapy. We will write for this. We discussed reasons to return. Radiography Diagnostic Testing: Radiology Impression Chest X-Ray 12/02/20 20:46 IMPRESSION: Increased lung volumes suggesting emphysema. No acute cardiopulmonary disease. Electronically Signed: Kevin Oseguera DO at 21:24 EDT Tel , Service support , Discharge Plan Triage Chief Complaint: Cough ED Provider: Robbie Payne Dx/Rx/DC Orders Clinical Impression: COVID-19 Instructions: Caring for Someone Who Has COVID-19 Prescriptions: No Action cholecalciferol (vitamin D3) 50 mcg (2,000 unit) capsule 4,000 mcg PO DAILY RF: 0 folic acid 0.8 mg capsule 0.8 mg PO DAILY RF: 0 Other Ambulatory Orders: COVID Outpatient Monoclonal Antibody Referral (Routine) Location: None Selected Ordered By: Dr. Robbie Payne Primary Care Provider: Jasvir Brock Referrals: Jasvir Brock MD [Primary Care Provider] - 10-14 Days if not better Disposition Disposition: Home, Self Care
[2020-12-02] MEDS: Ipratropium/Albuterol Sulfate 3 ML AMPUL.NEB INHALATION (20:16)
[2020-12-02 20:17] VITALS: PULSE 75; RESP 16
--- NOTE | 2020-12-02 20:46 | RAD_ITS ---
INDICATION: cough EXAMINATION/TECHNIQUE: X-RAY - XR Chest 2 Views COMPARISON: None. FINDINGS: LINES/DEVICES: Percutaneous or monitoring device projects over the left chest. LUNGS: No consolidation, edema or effusion. No pneumothorax. MEDIASTINUM AND CARDIOVASCULAR STRUCTURES: Cardiac silhouette not enlarged. Central airways and mediastinal contour are unremarkable. BONES AND SOFT TISSUES: Age expected degenerative changes spine and shoulders. RAD/Chest PA and Lateral IMPRESSION: Increased lung volumes suggesting emphysema. No acute cardiopulmonary disease. Electronically Signed: Kevin Oseguera DO at 21:24 EDT Tel , Service support ,
[2020-12-02 22:42] VITALS: BP 102/74; PULSE 68; RESP 14; O2SAT 96
== END 2020-12-02 22:43 | disposition home or self-care (01) ==
PROVIDERS: Emergency Provider Emergency Medicine; PCP Family Medicine
DX: U07.1 COVID-19 (principal); I10 Essential (primary) hypertension; M19.90 Unspecified osteoarthritis, unspecified site; Z79.899 Other long term (current) drug therapy; Z87.891 Personal history of nicotine dependence; Z86.73 Personal history of transient ischemic attack (TIA), and cerebral infarction without residual deficits
CPT/HCPCS: 71046; 87426; 94640; 99282

== ENCOUNTER → 2020-12-05 | Outpatient (CLI) | payer MEDICARE, SELFPAY | END | disposition home or self-care (01) | PROVIDERS: PCP Family Medicine; Visit Provider Family Medicine | DX: R05 Cough (principal) | CPT/HCPCS: 87635; U0005; U0003 ==

== ENCOUNTER 2020-12-07 13:27 | Outpatient (CLI) | payer MEDICARE, SELFPAY ==
[2020-12-07 13:39] VITALS: BP 103/72; PULSE 64; RESP 18; TEMP 36.6; O2SAT 93; BMI 22.9
[2020-12-07] MEDS: 0.9% Saline Lock 10 ML Syringe IV ×2 (13:46→14:29)
[2020-12-07 14:24] VITALS: BP 104/56; PULSE 61; RESP 20; TEMP 36.8; O2SAT 96
[2020-12-07 15:22] VITALS: BP 115/65; PULSE 64; RESP 18; TEMP 37.1; O2SAT 95
== END 2020-12-07 15:28 | disposition home or self-care (01) ==
LOC: MS2OUT 13:27 → MS2 13:28
PROVIDERS: PCP Family Medicine; Referring Provider Nurse Practitioner Acute Care; Visit Provider Nurse Practitioner Acute Care
DX: Z23 Encounter for immunization (principal); U07.1 COVID-19
CPT/HCPCS: J7050; M0243; A4216; Q0244

== ENCOUNTER 2020-12-10 04:04 | Emergency (ER) | payer MEDICARE, SELFPAY ==
[2020-12-10 04:06] VITALS: BP 156/89; PULSE 74; RESP 16; TEMP 36.5; O2SAT 94
[2020-12-10 04:08] VITALS: BP 138/69; PULSE 68; RESP 16; TEMP 36.1; O2SAT 92; O2SAT 95; BMI 24.4
[2020-12-10 04:16] VITALS: BP 119/60; BP 130/63; BP 134/94; PULSE 67; PULSE 76; PULSE 90
[2020-12-10 04:28] VITALS: BP 147/72; PULSE 74; RESP 16; TEMP 36.4; O2SAT 93
--- NOTE | 2020-12-10 04:33 | EKG12_ITS ---
Test Reason : WEAKNESS Blood Pressure : / mmHG Vent. Rate : 067 BPM Atrial Rate : 067 BPM P-R Int : 150 ms QRS Dur : 092 ms QT Int : 418 ms P-R-T Axes : 066 040 072 degrees QTc Int : 441 ms Normal sinus rhythm Normal ECG Confirmed by BARB VILLATORO, ELHAM ([id number]), editor & co founder TAISHA BRAGA ([id number]) on 12/11/2020 8:43:59 AM Referred By: MICHELET Confirmed By:ELHAM DAY MD
--- NOTE | 2020-12-10 04:50 | RAD_ITS ---
STUDY: X-RAY CHEST REASON FOR EXAM: Male, 85 years old. sob TECHNIQUE: AP COMPARISON: 12/02/2020 FINDINGS: The lungs are clear and expanded. There is no demonstrated pleural abnormality. Normal size heart. Normal mediastinum and mercy. Normal visualized pulmonary arteries. Normal visualized aortic arch and descending thoracic aorta. There is a loop recorder. Normal visualized thoracic spine. Normal visualized ribs, clavicles, and shoulders. There is no demonstrated abnormality of the visualized soft tissue structures of the upper abdomen. RAD/Chest 1 View (Portable) IMPRESSION: Negative x-ray examination of the chest. Electronically Signed: Kentrell Foy MD at 5:39 EDT Tel , Service support ,
[2020-12-10 04:51] VITALS: BP 130/73; PULSE 69; RESP 19; O2SAT 94
[2020-12-10 05:12] LABS: Absolute Lymphocyte Count 1.09 X10^3/uL (0.83-4.51); Absolute Neutrophil Count 2.9 X10^3/uL (2.0-7.7); Basophil# 0.01 X10^3/uL; Basophil% 0.2 % (0-1); Eosinophil# 0.02 X10^3/uL; Eosinophils% 0.4 % (0-5); Hematocrit 44.4 % (40-54); Hemoglobin 14.8 g/dL (13.0-16.5); Lymphocyte # 1.09 X10^3/ul (0.83-4.51); Lymphocyte % 24.1 % (19-41); Mean Corp Hgb Conc 33.3 g/dL (32-36); Mean Corpuscular Hgb 31.2 pg (27.0-32.0); Mean Corpuscular Volume 93.5 fL (80-94); Monocyte# 0.49 X10^3/uL; Monocyte% 10.8 % (0-10); NRBC Flagged by Analyzer 0 % (0-5); Neutrophil % 64.1 % (47-70); Platelet Count 197 K/mm3 (150-450); RBC Distribution Width CV 13.2 % (11.6-14.6); RBC Distribution Width SD 44.9 fl (35.1-43.9); Red Blood Count 4.75 M/mm3 (4.6-6.2); White Blood Count 4.5 K/mm3 (4.4-11.0)
[2020-12-10 05:24] LABS: AST(SGOT) 59 U/L (15-37); Alanine Aminotransfer ALT/SGPT 47 U/L (16-61); Albumin, Serum 3.3 g/dL (3.2-5.0); Alkaline Phosphatase 50 U/L (45-117); Anion Gap 8 (5-15); BUN 16 mg/dL (7-18); BUN/Creat Ratio 19.8 RATIO (10-20); Bilirubin, Direct 0.24 mg/dL (0.00-0.30); Chloride 98 mmol/L (98-107); Creatinine, Serum 0.81 mg/dL (0.70-1.30); EST Glomerular Filtration Rate 97 mL/min (>60); Est Glom Filt Rate - Afr Amer 117 mL/min (>60); Estimated Creatinine Clearance 63.47 ml/min; Globulin 4.4 g/dL (2.2-4.2); Glucose 106 mg/dL (74-106); Lipase 161 U/L (73-393); Potassium 3.7 mmol/L (3.5-5.1); Protein, Total 7.7 g/dL (6.4-8.2); Sodium Level 135 mmol/L (136-145)
[2020-12-10 05:42] LABS: Lactic Acid 1.1 mmol/L (0.4-1.9)
--- NOTE | 2020-12-10 05:57 | EX.ED.DYSGE1 ---
HPI History of Present Illness Chief Complaint: General Illness Informant: patient Onset/Context/Timing Onset: Days Context: Gradual Onset Current Severity: Moderate Maximum Severity: Moderate Narrative Narrative: Patient presents with generalized weakness secondary to Covid. Today is day 9 of his Covid symptoms and a positive test. He did receive monoclonal antibody infusion on December 07. states has been very weak at home and unsteady on his feet. He fell 3 days ago. When she checked his sat at home tonight was 88%. She called the squad and when they arrived his sat was 91%. She drove him here for evaluation. Ambulating in to the emergency room his sat was 95 to 92%. Patient does report some abdominal pain. He does report poor appetite. [facility] Medical History Arthritis BPH (benign prostatic hyperplasia) Essential (primary) hypertension GERD (gastroesophageal reflux disease) History of CVA (cerebrovascular accident) (01/09/20) Lung nodules Home Medications cholecalciferol (vitamin D3) 50 mcg (2,000 unit) capsule 4,000 mcg PO DAILY 01/31/20 [History Last Taken Unknown] Allergy/AdvReac Type Severity Reaction Status Date / Time ciprofloxacin [From Cipro] Allergy Unknown unknown Verified 12/10/20 04:54 bee venom protein (honey bee) Allergy Other Verified 12/10/20 04:54 Atnqwtm-Klw-Xds Reductase Allergy hallucination Verified 12/10/20 04:54 Inhibitor dyspnea Surgical History History of bilateral inguinal hernia repair History of loop recorder (02/14/20) History of transurethral resection of prostate Social History Smoking Status: Former smoker alcohol intake: never substance use type: does not use ROS ROS ED Constitutional Constitutional ED: Denies chills or fever(s) Eyes Eyes: Denies change in vision ENT ENT ED: Denies sore throat Cardiovascular Cardiovascular: Denies chest pain Respiratory/Chest Respiratory/Chest: Reports cough and dyspnea Gastrointestinal Gastrointestinal: Reports abdominal pain, nausea, vomiting and other Details: Vomiting 2 days ago. Dry heaves this morning. ; Denies diarrhea Genitourinary Genitourinary ED: Denies dysuria Musculoskeletal Musculoskeletal: Reports myalgias; Denies back pain Integumentary Denies rash Neurologic Neurologic: Reports weakness; Denies headache(s) Allergic/Immunologic Allergic/Immunologic ED: Denies urticaria EXAM Physical Exam Const Vital Signs: 12/10/20 04:06 12/10/20 04:08 12/10/20 04:16 Temperature 97.7 F L 97.0 F L Temperature Source Temporal Temporal Pulse Rate 74 68 Pulse Rate [Lying] 67 Pulse Rate [Sitting] 76 Pulse Rate [Standing] 90 Respiratory Rate 16 16 Blood Pressure 156/89 H 138/69 H Blood Pressure [Lying] 130/63 H Blood Pressure [Sitting] 134/94 H Blood Pressure [Standing] 119/60 Blood Pressure Mean 111 92 Blood Pressure Mean [Lying] 85 Blood Pressure Mean [Sitting] 107 Blood Pressure Mean [Standing] 79 Pulse Ox 94 92 Oxygen Delivery Method Room Air 12/10/20 04:28 12/10/20 04:51 Temperature 97.5 F L Temperature Source Temporal Pulse Rate 74 69 Pulse Rate [Lying] Pulse Rate [Sitting] Pulse Rate [Standing] Respiratory Rate 16 19 H Blood Pressure 147/72 H 130/73 H Blood Pressure [Lying] Blood Pressure [Sitting] Blood Pressure [Standing] Blood Pressure Mean 97 92 Blood Pressure Mean [Lying] Blood Pressure Mean [Sitting] Blood Pressure Mean [Standing] Pulse Ox 93 94 Oxygen Delivery Method Room Air Room Air Positive well nourished and well developed General Appearance ED: well developed HEENT Reports normocephalic and head/scalp atraumatic Eyes PERRL and EOMs intact bilaterally Neck supple Chest Wall inspection of chest normal and palpation of chest normal Resp normal respiratory effort and clear to auscultation bilaterally Cardio regular rate and regular rhythm GI normal to inspection, nondistended, normoactive bowel sounds and non-tender Palpation: soft Extremity normal to inspection Neuro oriented x3 Neuro Narrative: No focal neurologic deficits. Sensorium / Orientation: alert Psych mental status grossly normal Skin no rashes or lesions noted MDM MDM MDM Narrative Medical decision making narrative: EKG, chest x-ray, labs obtained. Lab Data Labs: Laboratory Results - last 24 hr 12/10/20 12/10/20 12/10/20 04:31 04:31 05:04 WBC 4.5 RBC 4.75 Hgb 14.8 Hct 44.4 MCV 93.5 MCH 31.2 MCHC 33.3 RDW Std Deviation 44.9 H RDW Coeff of Isiah 13.2 Plt Count 197 MPV 10.0 Immature Gran % (Auto) 0.400 Neut % (Auto) 64.1 Lymph % (Auto) 24.1 Waller % (Auto) 10.8 H Eos % (Auto) 0.4 Baso % (Auto) 0.2 Absolute Neuts (auto) 2.9 Absolute Lymphs (auto) 1.09 Nucleated RBC % 0 Sodium 135 L Potassium 3.7 Chloride 98 Carbon Dioxide 29.0 Anion Gap 8 BUN 16 Creatinine 0.81 Estim Creat Clear Calc 63.47 Est GFR (MDRD) Af Amer 117 Est GFR (MDRD) Non-Af 97 BUN/Creatinine Ratio 19.8 Glucose 106 Lactic Acid 1.1 Calcium 9.0 Total Bilirubin 0.70 Direct Bilirubin 0.24 AST 59 H ALT 47 Alkaline Phosphatase 50 Total Protein 7.7 Albumin 3.3 Globulin 4.4 H Lipase 161 Radiography Chest X-Ray - ED: 1 View, Read by ED Physician and Chronic Changes Diagnostic Testing: Radiology Impression Chest X-Ray 12/10/20 04:50 IMPRESSION: Negative x-ray examination of the chest. Electronically Signed: Kentrell Foy MD at 5:39 EDT Tel , Service support , EKG Initial EKG: Attestation: I personally reviewed and interpreted this EKG as follows: Interpretation: Sinus Rhythm (Sinus at 67 with no acute ischemia.) Treatment and Re-Evaluation Comments:: On repeat evaluation patient is resting comfortably. O2 sats have been appropriate on room air. Test results discussed with patient as well as at bedside. Lab work is unremarkable. Chest x-ray reveals no focal infiltrate per my interpretation. Radiologist report is also reviewed. We discussed possible hospitalization secondary to his generalized weakness and falls. I advised patient and that as far as the Covid is concerned I do not know that there would be a lot more treatment that would be able to be offered in the hospital. He is not requiring oxygen. He does have a walker available to him at home that he has not been using. He is open to using this to help him get around. They do have a pulse ox meter at home and will continue to watch his oxygen saturations. Return instructions are provided. Discharge Plan Triage Chief Complaint: General Illness ED Provider: Grecia Buitrago Dx/Rx/DC Orders Clinical Impression: COVID-19 Instructions: Coronavirus Disease 2019 (COVID-19): Overview, Coronavirus Disease 2019 (COVID-19): Caring for Yourself or Others Prescriptions: No Action cholecalciferol (vitamin D3) 50 mcg (2,000 unit) capsule 4,000 mcg PO DAILY RF: 0 Primary Care Provider: Jasvir Brock Referrals: Jasvir Brock MD [Primary Care Provider] - 10-14 Days if not better Disposition Disposition: Home, Self Care
[2020-12-10 06:27] VITALS: BP 142/64; PULSE 65; RESP 17; O2SAT 94
== END 2020-12-10 06:28 | disposition home or self-care (01) ==
PROVIDERS: Emergency Provider Emergency Medicine; PCP Family Medicine
DX: U07.1 COVID-19 (principal); M19.90 Unspecified osteoarthritis, unspecified site; Z87.891 Personal history of nicotine dependence
CPT/HCPCS: 71045; 80048; 80076; 83605; 83690; 85025; 93005; 99284; A4216

== ENCOUNTER → 2021-03-11 12:08 | Outpatient (CLI) | payer MEDICARE, SELFPAY | PROVIDERS: PCP Family Medicine; Referring Provider Urology; Visit Provider Urology | DX: C61 Malignant neoplasm of prostate (principal) | CPT/HCPCS: 36415; 84153 ==

== ENCOUNTER 2021-04-30 17:59 | Outpatient (CLI) | payer MEDICARE, SELFPAY | END 2021-04-30 23:59 | disposition short-term general hospital (02) | PROVIDERS: PCP Family Medicine; Referring Provider Nurse Practitioner Family; Visit Provider Nurse Practitioner Family | DX: U07.1 COVID-19 (principal) | CPT/HCPCS: 87635; U0003; U0005 ==

== ENCOUNTER → 2021-08-27 | Outpatient (CLI) | payer MEDICARE, SELFPAY ==
[2021-08-27 13:02] LABS: Anion Gap 4 (5-15); BUN 22 mg/dL (7-18); BUN/Creat Ratio 19.1 RATIO (10-20); Calcium,Total 9.7 mg/dL (8.5-10.1); Chloride 106 mmol/L (98-107); Creatinine, Serum 1.15 mg/dL (0.70-1.30); EST Glomerular Filtration Rate 64 mL/min (>60); Est Glom Filt Rate - Afr Amer 78 mL/min (>60); Glucose 101 mg/dL (74-106); Potassium 4.1 mmol/L (3.5-5.1); Sodium Level 138 mmol/L (136-145)
== END | disposition home or self-care (01) ==
LOC: LAB 12:00
PROVIDERS: PCP Family Medicine; Referring Provider Internal Medicine Cardiovascular Disease; Visit Provider Internal Medicine Cardiovascular Disease
DX: Z98.890 Other specified postprocedural states (principal)
CPT/HCPCS: 36415; 80048

== ENCOUNTER 2021-09-09 09:42 | Day surgery (SDC) | payer MEDICARE, SELFPAY ==
[2021-09-06 08:58] VITALS: BMI 25.7
--- NOTE | 2021-09-09 15:16 | CL.IE_ITS ---
Patient: CHELLY FERGUSON Study Date: 09/09/2021 Performing: Owen Dailey MD : [id number] Age: 85 Gender: male PROCEDURES PERFORMED [id number])REMOVAL OF LOOP RECORDER INDICATIONS Cryptogenic stroke PROCEDURE DETAILS The patient was brought to the Catheterization Lab in the postabsorptive nonsedated state. [facility] consent was obtained prior to the procedure. Local anesthetic was given subcutaneously to the le ft upper chest area with Lidocaine 2%. Incision was made to the left upper chest. ICM Loop Recorder w as removed. The patient tolerated the procedure well. Estimated Blood Loss: 10 ml's IMPLANTED / EX-PLANTED DEVICES DEVICE PARAMETERS CONCLUSIONS / RECOMMENDATIONS Device Recommendations: Follow up with Primary Care Physician PROCEDURE MEDICATIONS Fentanyl 50 mcg IV Versed 1 mg IV Oxygen: 2 L/min via nasal cannula Antibiotic given in appropriate timeframe. Ancef 2 Gm IV @ 09/09/2021 14:23:08 Signed By Owen Dailey MD On 09/09/2021 15:14:26 Owen Dailey MD
== END 2021-09-09 16:06 | disposition home or self-care (01) ==
PROVIDERS: PCP Family Medicine; Referring Provider Internal Medicine Cardiovascular Disease; Visit Provider Internal Medicine Cardiovascular Disease
DX: Z45.09 Encounter for adjustment and management of other cardiac device (principal); I10 Essential (primary) hypertension; M19.90 Unspecified osteoarthritis, unspecified site; Z79.899 Other long term (current) drug therapy; Z86.73 Personal history of transient ischemic attack (TIA), and cerebral infarction without residual deficits; Z86.16 Personal history of COVID-19; Z87.891 Personal history of nicotine dependence
CPT/HCPCS: 33286; 99152; 99153; J7030

== ENCOUNTER → 2021-10-02 | Outpatient (CLI) | payer MEDICARE, SELFPAY | END | disposition home or self-care (01) | PROVIDERS: PCP Family Medicine; Referring Provider Urology; Visit Provider Urology | DX: C61 Malignant neoplasm of prostate (principal) | CPT/HCPCS: 36415; 84153 ==

== ENCOUNTER → 2021-12-24 | Outpatient (CLI) | payer MEDICARE, SELFPAY | END | disposition home or self-care (01) | LOC: LABSPEC 14:26 | PROVIDERS: PCP Family Medicine; Referring Provider Family Medicine; Visit Provider Family Medicine | DX: N39.0 Urinary tract infection, site not specified (principal) | CPT/HCPCS: 87077; 87086; 87088; 87186 ==

== ENCOUNTER → 2022-01-06 | Outpatient (CLI) | payer MEDICARE, SELFPAY ==
[2022-01-06 13:48] LABS: Mucous, Urine 0 SEEN /hpf (<or=2+)
[2022-01-06 18:51] LABS: Color, Urine Amber (Yellow); Glucose, Dipstick Normal (Normal); Ketone-Dipstick 5 mg/dl (Negative); Leukocyte Esterase-Dipstick 500 /ul (Negative); Nitrite-Dipstick Positive (Negative); Occult Blood-Urine 25 /ul (Negative); Protein-Dipstick 30 mg/dl (Negative); Specific Gravity, Urine 1.025 (1.002-1.030); Urine Bilirubin Dipstick Negative (Negative); Urine Clarity Cloudy (Clear); Urine Urobilinogen Normal (Normal)
[2022-01-06 19:54] LABS: Bacteria 4+ /hpf (None Seen); Red Blood Cells-Urine 0-5 SEEN /hpf (0-5); Squamous Epithelial Cells - UA 5-10 SEEN /hpf (0-5); White Blood Cells >100 SEEN /hpf (0-5)
== END | disposition home or self-care (01) ==
LOC: MFPLAB 13:45
PROVIDERS: PCP Family Medicine; Visit Provider Family Medicine
DX: R30.9 Painful micturition, unspecified (principal)
CPT/HCPCS: 81001; 87086; 87088; 87186

== ENCOUNTER → 2022-01-21 | Outpatient (CLI) | payer MEDICARE, SELFPAY ==
[2022-01-21 17:49] LABS: Absolute Lymphocyte Count 1.89 X10^3/uL (0.83-4.51); Absolute Neutrophil Count 5.5 X10^3/uL (2.0-7.7); Basophil# 0.06 X10^3/uL; Basophil% 0.7 % (0-1); Eosinophil# 0.14 X10^3/uL; Eosinophils% 1.7 % (0-5); Hematocrit 42.9 % (40-54); Hemoglobin 13.6 g/dL (13.0-16.5); Lymphocyte # 1.89 X10^3/ul (0.83-4.51); Lymphocyte % 22.8 % (19-41); Mean Corp Hgb Conc 31.7 g/dL (32-36); Mean Corpuscular Hgb 31.4 pg (27.0-32.0); Mean Corpuscular Volume 99.1 fL (80-94); Monocyte# 0.62 X10^3/uL; Monocyte% 7.5 % (0-10); NRBC Flagged by Analyzer 0 % (0-5); Neutrophil # 5.54 X10^3/uL (2.7-7.7); Neutrophil % 66.8 % (47-70); Platelet Count 374 K/mm3 (150-450); RBC Distribution Width CV 13.8 % (11.6-14.6); RBC Distribution Width SD 50.6 fl (35.1-43.9); Red Blood Count 4.33 M/mm3 (4.6-6.2); White Blood Count 8.3 K/mm3 (4.4-11.0)
[2022-01-21 18:05] LABS: Vitamin D,25 Hydroxy 44.9 ng/mL
[2022-01-21 18:29] LABS: ALB/GLOB Ratio 0.9 RATIO (0.9-2.4); AST(SGOT) 24 U/L (15-37); Alanine Aminotransfer ALT/SGPT 30 U/L (16-61); Albumin, Serum 3.7 g/dL (3.2-5.0); Alkaline Phosphatase 55 U/L (45-117); Anion Gap 7 (5-15); BUN 22 mg/dL (7-18); BUN/Creat Ratio 20.2 RATIO (10-20); Calcium,Total 9.7 mg/dL (8.5-10.1); Chloride 104 mmol/L (98-107); Cholesterol 221 mg/dL (200); Creatinine, Serum 1.09 mg/dL (0.70-1.30); EST Glomerular Filtration Rate 68 mL/min (>60); Est Glom Filt Rate - Afr Amer 83 mL/min (>60); Globulin 4.3 g/dL (2.2-4.2); Glucose 112 mg/dL (74-106); High Density Lipoprotein 37 mg/dL; Potassium 3.9 mmol/L (3.5-5.1); Sodium Level 137 mmol/L (136-145); Thyroid Stim Hormone (TSH) 1.69 uIU/mL (0.358-3.74); Triglycerides 396 mg/dL; Very Low Density Lipoprotein 79 mg/dL (5-40)
[2022-01-22 13:39] LABS: Hemoglobin A1c 5.6 % (3.8-5.6)
== END | disposition home or self-care (01) ==
LOC: MFPLAB 14:26
PROVIDERS: PCP Family Medicine; Referring Provider Family Medicine; Visit Provider Family Medicine
DX: E55.9 Vitamin D deficiency, unspecified (principal); R73.09 Other abnormal glucose; Z86.73 Personal history of transient ischemic attack (TIA), and cerebral infarction without residual deficits
CPT/HCPCS: 36415; 80053; 80061; 82306; 83036; 84443; 85025

== ENCOUNTER → 2022-02-06 | Outpatient (CLI) | payer MEDICARE, SELFPAY ==
--- NOTE | 2022-02-06 09:23 | BD_ITS ---
STUDY: DUAL ENERGY X-RAY ABSORPTIOMETRY / DXA REASON FOR EXAM: Male, 86 years old. M810 TECHNIQUE: Bone Mineral Density (BMD) measurements of lumbar spine and bilateral hips were obtained. COMPARISON: None. FINDINGS: Lumbar Spine (L1-L4): g/cm2 (1.219) / T-score (1.5) / Z-score (2.8) Findings are suggestive of normal bone density with a low fracture risk. Left Femur Total: g/cm2 (1.080) / T-score (0.3) / Z-score (1.6) Left Femoral Neck: g/cm2 (0.852) / T-score (-0.6) / Z-score (1.1) Right Femur Total: g/cm2 (1.063) / T-score (0.2) / Z-score (1.5) Right Femoral Neck: g/cm2 (0.896) / T-score (-0.3) / Z-score (1.5) BD/Dexa Bone Density Study IMPRESSION: The patient is considered normal as outlined below according to World Jorge Organization (WHO) criteria with a low fracture risk. Reference Information: The T-score is the number of standard deviations above or below the standard which is normal for young adults at their peak bone mineral density. The World Health Organization (WHO) interprets the T-scores as follows: Above -1 Normal bone density Between -1 and -2.5 Osteopenia Equal to / or below -2.5 Osteoporosis As a practical clinical guideline, osteopenia may be graded as follows: Mild -1 through -1.5 Moderate -1.6 through -2.0 Severe -2.1 through -2.4 The Z-score is the number of standard deviations above or below age-matched controls. A Z-score of less than -1.5 would be considered abnormal. References: 1. NIH Osteoporosis and Related Bone Diseases www osteo.org 2. International Society for Clinical Densitometry www iscd.org 3. National Osteoporosis Foundation www nof.org Electronically Signed: Baldomero Nolasco MD at 11:13 EDT ,
[2022-02-06 09:40] LABS: Hemoglobin A1c 5.5 % (3.8-5.6)
[2022-02-06 09:59] LABS: Anion Gap 6 (5-15); BUN 27 mg/dL (7-18); BUN/Creat Ratio 27.8 RATIO (10-20); Calcium,Total 9.8 mg/dL (8.5-10.1); Chloride 107 mmol/L (98-107); Creatinine, Serum 0.97 mg/dL (0.70-1.30); EST Glomerular Filtration Rate 78 mL/min (>60); Est Glom Filt Rate - Afr Amer 95 mL/min (>60); Glucose 101 mg/dL (74-106); Potassium 4.3 mmol/L (3.5-5.1); Sodium Level 139 mmol/L (136-145)
[2022-02-06 10:02] LABS: Vitamin D,25 Hydroxy 49.6 ng/mL
== END | disposition home or self-care (01) ==
LOC: OPBD 09:07
PROVIDERS: PCP Family Medicine
DX: M81.0 Age-related osteoporosis without current pathological fracture (principal); C61 Malignant neoplasm of prostate; R73.09 Other abnormal glucose
CPT/HCPCS: 36415; 77080; 80048; 82306; 83036; 84153; 84403

== ENCOUNTER → 2022-05-08 | Outpatient (CLI) | payer MEDICARE, SELFPAY ==
--- NOTE | 2022-05-08 12:40 | RAD_ITS ---
EXAM: XR CHEST, 2 VIEWS CLINICAL INDICATION: COPD TECHNIQUE: Frontal and lateral views of the chest. This report was created using Lollipuff report generation technology. COMPARISON: 12.10.20 FINDINGS: LUNGS AND PLEURAL SPACES: Unremarkable. No consolidation or edema. No pneumothorax. No effusion. HEART: Unremarkable. Cardiac silhouette not enlarged. MEDIASTINUM: Central airways and mediastinal contour are unremarkable. BONES/JOINTS: Unremarkable. SOFT TISSUES: Unremarkable. RAD/Chest PA and Lateral IMPRESSION: No radiographic evidence of acute cardiopulmonary disease. Electronically Signed: Vikas Alvarez MD at 17:13 [facility] ,
== END | disposition home or self-care (01) ==
LOC: MTRAD 12:34
PROVIDERS: PCP Family Medicine; Referring Provider Family Medicine; Visit Provider Family Medicine
DX: J44.9 Chronic obstructive pulmonary disease, unspecified (principal)
CPT/HCPCS: 71046

== ENCOUNTER → 2022-07-18 | Outpatient (CLI) | payer MEDICARE, SELFPAY ==
[2022-07-18 12:58] LABS: PSA,Total- Diagnostic 0.25 ng/mL (0.0-4.0)
== END | disposition home or self-care (01) ==
LOC: MFPLAB 10:11
PROVIDERS: PCP Family Medicine
DX: C61 Malignant neoplasm of prostate (principal)
CPT/HCPCS: 36415; 84153

== ENCOUNTER → 2022-07-30 | Outpatient (CLI) | payer MEDICARE, SELFPAY ==
--- NOTE | 2022-07-30 08:50 | RAD_ITS ---
INDICATION: PAIN EXAMINATION/TECHNIQUE: X-RAY - XR Hip Unilateral with Pelvis when performed; 2-3 Views COMPARISON: None. FINDINGS: Severe degenerative disc disease L3-S1. PELVIC BONES: No displaced fracture, destructive or sclerotic lesions. Note that overlapping bowel shadows may however obscure fine detail. Sacroiliac joints are unremarkable. No widening of the pubic symphysis. HIPS: Mild joint space narrowing right hip symmetric as compared to left. SOFT TISSUES: No soft tissue swelling or gas. Multiple wire coils are seen in the pelvis consistent with prior bilateral inguinal herniorrhaphy. RAD/HIP, UNI W/ Pelvis 2-3 Views IMPRESSION: Mild bilateral hip osteoarthritis. Degenerative changes lumbar spine. Electronically Signed: Manuel Blackman MD, MORGAN at 22:53 EDT ,
--- NOTE | 2022-07-30 08:50 | RAD_ITS ---
INDICATION: PAIN EXAMINATION/TECHNIQUE: X-RAY - RIGHT XR Tibia/Fibula 2 Views 2 VIEWS COMPARISON: FINDINGS: SOFT TISSUES: No soft tissue swelling or gas. No radiopaque foreign body. BONES/JOINTS: No acute fracture or subluxation.. Normal alignment. Moderate osteoarthritis medial and lateral compartments right knee. No sclerotic or destructive changes observed. RAD/Tibia & Fibula 2 Views IMPRESSION: Right knee osteoarthritis. Electronically Signed: Manuel Blackman MD, MORGAN at 22:37 EDT ,
[2022-07-30 10:36] LABS: Absolute Lymphocyte Count 1.52 X10^3/uL (0.83-4.51); Absolute Neutrophil Count 6.2 X10^3/uL (2.0-7.7); Basophil# 0.08 X10^3/uL; Basophil% 0.9 % (0-1); Eosinophil# 0.21 X10^3/uL; Eosinophils% 2.4 % (0-5); Hematocrit 42.4 % (40-54); Hemoglobin 13.6 g/dL (13.0-16.5); Lymphocyte # 1.52 X10^3/ul (0.83-4.51); Lymphocyte % 17.2 % (19-41); Mean Corp Hgb Conc 32.1 g/dL (32-36); Mean Corpuscular Hgb 31.3 pg (27.0-32.0); Mean Corpuscular Volume 97.7 fL (80-94); Mean Platelet Vol. 9.9 fl (6.2-12.0); NRBC Flagged by Analyzer 0 % (0-5); Neutrophil % 69.9 % (47-70); Platelet Count 312 K/mm3 (150-450); RBC Distribution Width CV 12.6 % (11.6-14.6); RBC Distribution Width SD 45.2 fl (35.1-43.9); Red Blood Count 4.34 M/mm3 (4.6-6.2); White Blood Count 8.9 K/mm3 (4.4-11.0)
[2022-07-30 10:58] LABS: Vitamin D,25 Hydroxy 53.8 ng/mL
[2022-07-30 11:10] LABS: ALB/GLOB Ratio 0.8 RATIO (0.9-2.4); AST(SGOT) 27 U/L (15-37); Alanine Aminotransfer ALT/SGPT 29 U/L (16-61); Albumin, Serum 3.6 g/dL (3.2-5.0); Alkaline Phosphatase 65 U/L (45-117); Anion Gap 3 (5-15); BUN 24 mg/dL (7-18); BUN/Creat Ratio 26.1 RATIO (10-20); Calcium,Total 9.9 mg/dL (8.5-10.1); Chloride 105 mmol/L (98-107); Cholesterol 175 mg/dL (200); Creatinine, Serum 0.92 mg/dL (0.70-1.30); EST Glomerular Filtration Rate 83 mL/min (>60); Est Glom Filt Rate - Afr Amer 101 mL/min (>60); Globulin 4.4 g/dL (2.2-4.2); Glucose 85 mg/dL (74-106); High Density Lipoprotein 44 mg/dL; Sodium Level 136 mmol/L (136-145); Triglycerides 201 mg/dL; Very Low Density Lipoprotein 40 mg/dL (5-40)
== END | disposition home or self-care (01) ==
LOC: MTLAB 08:48
PROVIDERS: PCP Family Medicine; Referring Provider Family Medicine; Visit Provider Family Medicine
DX: I25.10 Atherosclerotic heart disease of native coronary artery without angina pectoris (principal); E55.9 Vitamin D deficiency, unspecified; M16.0 Bilateral primary osteoarthritis of hip; M17.11 Unilateral primary osteoarthritis, right knee; M51.36 Other intervertebral disc degeneration, lumbar region
CPT/HCPCS: 36415; 73502; 73590; 80053; 80061; 82306; 85025

== ENCOUNTER → 2022-09-04 | Outpatient (CLI) | payer MEDICARE, SELFPAY ==
[2022-09-04 12:27] LABS: Absolute Lymphocyte Count 1.33 X10^3/uL (0.83-4.51); Absolute Neutrophil Count 5.8 X10^3/uL (2.0-7.7); Basophil# 0.07 X10^3/uL; Basophil% 0.8 % (0-1); Eosinophil# 0.41 X10^3/uL; Eosinophils% 4.7 % (0-5); Hematocrit 39.6 % (40-54); Hemoglobin 12.7 g/dL (13.0-16.5); Lymphocyte # 1.33 X10^3/ul (0.83-4.51); Lymphocyte % 15.3 % (19-41); Mean Corp Hgb Conc 32.1 g/dL (32-36); Mean Corpuscular Hgb 30.8 pg (27.0-32.0); Mean Corpuscular Volume 95.9 fL (80-94); Mean Platelet Vol. 9.5 fl (6.2-12.0); Monocyte# 1.05 X10^3/uL; NRBC Flagged by Analyzer 0 % (0-5); Neutrophil # 5.81 X10^3/uL (2.7-7.7); Neutrophil % 66.6 % (47-70); Platelet Count 304 K/mm3 (150-450); RBC Distribution Width CV 13.2 % (11.6-14.6); RBC Distribution Width SD 47.2 fl (35.1-43.9); Red Blood Count 4.13 M/mm3 (4.6-6.2); White Blood Count 8.7 K/mm3 (4.4-11.0)
[2022-09-04 12:41] LABS: Vitamin B12 491 pg/mL (211-911)
[2022-09-04 12:59] LABS: ALB/GLOB Ratio 0.8 RATIO (0.9-2.4); AST(SGOT) 32 U/L (15-37); Alanine Aminotransfer ALT/SGPT 26 U/L (16-61); Albumin, Serum 3.2 g/dL (3.2-5.0); Alkaline Phosphatase 62 U/L (45-117); Anion Gap 8 (5-15); BUN 31 mg/dL (7-18); BUN/Creat Ratio 27.2 RATIO (10-20); Calcium,Total 9.5 mg/dL (8.5-10.1); Chloride 106 mmol/L (98-107); Creatinine, Serum 1.14 mg/dL (0.70-1.30); EST Glomerular Filtration Rate 65 mL/min (>60); Est Glom Filt Rate - Afr Amer 78 mL/min (>60); Globulin 4.2 g/dL (2.2-4.2); Glucose 98 mg/dL (74-106); Protein, Total 7.4 g/dL (6.4-8.2); Sodium Level 139 mmol/L (136-145)
== END | disposition home or self-care (01) ==
LOC: MFPLAB 11:22
PROVIDERS: PCP Family Medicine; Visit Provider Nurse Practitioner Family
DX: R53.83 Other fatigue (principal)
CPT/HCPCS: 36415; 80053; 82607; 84443; 85025

== ENCOUNTER → 2022-09-09 | Outpatient (CLI) | payer MEDICARE, SELFPAY ==
[2022-09-09 15:28] LABS: Vitamin B12 542 pg/mL (211-911)
[2022-09-09 16:26] LABS: Ferritin 312 ng/mL (26-388); Iron Binding Capacity,Total 359 ug/dL (250-450)
== END | disposition home or self-care (01) ==
LOC: MFPLAB 12:27
PROVIDERS: PCP Family Medicine; Visit Provider Family Medicine
DX: D64.9 Anemia, unspecified (principal)
CPT/HCPCS: 36415; 82607; 82728; 82746; 83550

== ENCOUNTER → 2022-09-25 | Outpatient (CLI) | payer MEDICARE, SELFPAY ==
[2022-09-25 16:35] LABS: PSA,Total - Annual Screen 0.18 ng/mL (0.00-4.00)
== END | disposition home or self-care (01) ==
PROVIDERS: PCP Family Medicine; Referring Provider Urology; Visit Provider Urology
DX: Z12.5 Encounter for screening for malignant neoplasm of prostate (principal); C61 Malignant neoplasm of prostate
CPT/HCPCS: 36415; 84153; G0103

== ENCOUNTER → 2022-11-25 | Outpatient (CLI) | payer MEDICARE, SELFPAY ==
[2022-11-25 10:08] LABS: Absolute Lymphocyte Count 1.75 X10^3/uL (0.83-4.51); Absolute Neutrophil Count 5.2 X10^3/uL (2.0-7.7); Basophil# 0.06 X10^3/uL; Basophil% 0.7 % (0-1); Eosinophil# 0.15 X10^3/uL; Eosinophils% 1.8 % (0-5); Hematocrit 41.7 % (40-54); Hemoglobin 13.3 g/dL (13.0-16.5); Lymphocyte # 1.75 X10^3/ul (0.83-4.51); Lymphocyte % 21.6 % (19-41); Mean Corp Hgb Conc 31.9 g/dL (32-36); Mean Corpuscular Hgb 30.7 pg (27.0-32.0); Mean Corpuscular Volume 96.3 fL (80-94); Mean Platelet Vol. 9.9 fl (6.2-12.0); Monocyte# 0.79 X10^3/uL; Monocyte% 9.7 % (0-10); NRBC Flagged by Analyzer 0 % (0-5); Neutrophil # 5.22 X10^3/uL (2.7-7.7); Neutrophil % 64.4 % (47-70); Platelet Count 307 K/mm3 (150-450); RBC Distribution Width CV 13.8 % (11.6-14.6); RBC Distribution Width SD 49.1 fl (35.1-43.9); Red Blood Count 4.33 M/mm3 (4.6-6.2); White Blood Count 8.1 K/mm3 (4.4-11.0)
[2022-11-25 10:25] LABS: ALB/GLOB Ratio 0.9 RATIO (0.9-2.4); AST(SGOT) 34 U/L (15-37); Alanine Aminotransfer ALT/SGPT 35 U/L (16-61); Albumin, Serum 3.8 g/dL (3.2-5.0); Alkaline Phosphatase 62 U/L (45-117); Anion Gap 8 (5-15); BUN 27 mg/dL (7-18); BUN/Creat Ratio 27.1 RATIO (10-20); Calcium,Total 9.8 mg/dL (8.5-10.1); Chloride 105 mmol/L (98-107); Cholesterol 212 mg/dL (200); EST Glomerular Filtration Rate 76 mL/min (>60); Est Glom Filt Rate - Afr Amer 91 mL/min (>60); Globulin 4.1 g/dL (2.2-4.2); Glucose 108 mg/dL (74-106); High Density Lipoprotein 49 mg/dL; Protein, Total 7.9 g/dL (6.4-8.2); Sodium Level 139 mmol/L (136-145); Triglycerides 165 mg/dL; Very Low Density Lipoprotein 33 mg/dL (5-40)
[2022-11-25 10:53] LABS: Vitamin D,25 Hydroxy 50.2 ng/mL
== END | disposition home or self-care (01) ==
LOC: MFPLAB 08:49
PROVIDERS: PCP Family Medicine; Visit Provider Family Medicine
DX: I25.10 Atherosclerotic heart disease of native coronary artery without angina pectoris (principal); E55.9 Vitamin D deficiency, unspecified
CPT/HCPCS: 36415; 80053; 80061; 82306; 85025

== ENCOUNTER → 2022-12-23 | Outpatient (CLI) | payer MEDICARE, SELFPAY ==
--- NOTE | 2022-12-23 17:27 | RAD_ITS ---
INDICATION: pneumonia FOLLOW-UP FOR PNEUMONIA EXAMINATION/TECHNIQUE: X-RAY - XR Chest 2 Views COMPARISON: 05-29 FINDINGS: LINES/DEVICES: None. LUNGS: Reticular opacities in the lung bases. No consolidation. No pneumothorax. MEDIASTINUM: Aorta is atherosclerotic. CARDIAC SILHOUETTE: Not enlarged. BONES AND SOFT TISSUES: No acute abnormalities. RAD/Chest PA and Lateral IMPRESSION: Subsegmental atelectasis or scarring in the lung bases. No consolidation. Electronically Signed: Albania Jones MD at 3:58 EDT ,
== END | disposition home or self-care (01) ==
LOC: MTRAD 17:18
PROVIDERS: PCP Family Medicine; Referring Provider Family Medicine; Visit Provider Family Medicine
DX: J18.9 Pneumonia, unspecified organism (principal)
CPT/HCPCS: 71046

== ENCOUNTER → 2023-01-19 | Outpatient (CLI) | payer MEDICARE, SELFPAY ==
[2023-01-19 10:18] LABS: PSA,Total- Diagnostic 0.09 ng/mL (0.0-4.0)
== END | disposition home or self-care (01) ==
LOC: LAB 09:23
PROVIDERS: PCP Family Medicine; Referring Provider Urology; Visit Provider Urology
DX: C61 Malignant neoplasm of prostate (principal)
CPT/HCPCS: 36415; 84153

== ENCOUNTER → 2023-02-13 | Outpatient (CLI) | payer MEDICARE, SELFPAY ==
[2023-02-13 10:15] LABS: Absolute Lymphocyte Count 1.72 X10^3/uL (0.83-4.51); Absolute Neutrophil Count 7.8 X10^3/uL (2.0-7.7); Basophil# 0.07 X10^3/uL; Basophil% 0.7 % (0-1); Eosinophil# 0.16 X10^3/uL; Eosinophils% 1.5 % (0-5); Hematocrit 40.5 % (40-54); Hemoglobin 12.8 g/dL (13.0-16.5); Lymphocyte # 1.72 X10^3/ul (0.83-4.51); Lymphocyte % 16.3 % (19-41); Mean Corp Hgb Conc 31.6 g/dL (32-36); Mean Corpuscular Hgb 30.8 pg (27.0-32.0); Mean Corpuscular Volume 97.6 fL (80-94); Mean Platelet Vol. 9.7 fl (6.2-12.0); Monocyte# 0.78 X10^3/uL; Monocyte% 7.4 % (0-10); NRBC Flagged by Analyzer 0 % (0-5); Neutrophil # 7.76 X10^3/uL (2.7-7.7); Neutrophil % 73.7 % (47-70); Platelet Count 268 K/mm3 (150-450); RBC Distribution Width CV 13.8 % (11.6-14.6); RBC Distribution Width SD 50.1 fl (35.1-43.9); Red Blood Count 4.15 M/mm3 (4.6-6.2); White Blood Count 10.5 K/mm3 (4.4-11.0)
[2023-02-13 10:50] LABS: Vitamin B12 691 pg/mL (211-911); Vitamin D,25 Hydroxy 63.9 ng/mL
[2023-02-13 11:37] LABS: ALB/GLOB Ratio 0.9 RATIO (0.9-2.4); AST(SGOT) 28 U/L (15-37); Alanine Aminotransfer ALT/SGPT 30 U/L (16-61); Albumin, Serum 3.6 g/dL (3.2-5.0); Alkaline Phosphatase 57 U/L (45-117); Anion Gap 3 (5-15); BUN 23 mg/dL (7-18); BUN/Creat Ratio 23.7 RATIO (10-20); Calcium,Total 9.7 mg/dL (8.5-10.1); Chloride 105 mmol/L (98-107); Creatinine, Serum 0.97 mg/dL (0.70-1.30); EST Glomerular Filtration Rate 78 mL/min (>60); Est Glom Filt Rate - Afr Amer 94 mL/min (>60); Ferritin 258 ng/mL (26-388); Glucose 92 mg/dL (74-106); Iron 90 ug/dL (65-175); Iron Binding Capacity,Total 319 ug/dL (250-450); Protein, Total 7.6 g/dL (6.4-8.2); Sodium Level 137 mmol/L (136-145); T4 Free Direct 0.99 ng/dL (0.76-1.46); Thyroid Stim Hormone (TSH) 2.27 uIU/mL (0.358-3.74)
== END | disposition home or self-care (01) ==
LOC: MFPLAB 09:28
PROVIDERS: PCP Family Medicine; Visit Provider Family Medicine
DX: D64.9 Anemia, unspecified (principal); R53.83 Other fatigue; E55.9 Vitamin D deficiency, unspecified
CPT/HCPCS: 36415; 80053; 82306; 82607; 82728; 82746; 83540; 83550; 84439; 84443; 85025

== ENCOUNTER → 2023-04-07 | Outpatient (CLI) | payer MEDICARE, SELFPAY ==
[2023-04-07 12:20] LABS: Absolute Lymphocyte Count 1.62 X10^3/uL (0.83-4.51); Absolute Neutrophil Count 7.5 X10^3/uL (2.0-7.7); Basophil# 0.07 X10^3/uL; Basophil% 0.7 % (0-1); Eosinophil# 0.16 X10^3/uL; Eosinophils% 1.6 % (0-5); Hematocrit 39.3 % (40-54); Hemoglobin 12.6 g/dL (13.0-16.5); Lymphocyte # 1.62 X10^3/ul (0.83-4.51); Mean Corp Hgb Conc 32.1 g/dL (32-36); Mean Corpuscular Hgb 31.3 pg (27.0-32.0); Mean Corpuscular Volume 97.8 fL (80-94); Mean Platelet Vol. 9.8 fl (6.2-12.0); Monocyte# 0.73 X10^3/uL; Monocyte% 7.2 % (0-10); NRBC Flagged by Analyzer 0 % (0-5); Neutrophil # 7.48 X10^3/uL (2.7-7.7); Neutrophil % 73.9 % (47-70); Platelet Count 304 K/mm3 (150-450); RBC Distribution Width CV 13.7 % (11.6-14.6); RBC Distribution Width SD 49.5 fl (35.1-43.9); Red Blood Count 4.02 M/mm3 (4.6-6.2); White Blood Count 10.1 K/mm3 (4.4-11.0)
[2023-04-07 12:41] LABS: Vitamin D,25 Hydroxy 61.6 ng/mL
[2023-04-07 12:50] LABS: ALB/GLOB Ratio 0.9 RATIO (0.9-2.4); AST(SGOT) 30 U/L (15-37); Alanine Aminotransfer ALT/SGPT 36 U/L (16-61); Albumin, Serum 3.6 g/dL (3.2-5.0); Alkaline Phosphatase 66 U/L (45-117); Anion Gap 7 (5-15); BUN 24 mg/dL (7-18); BUN/Creat Ratio 25.4 RATIO (10-20); Calcium,Total 10.1 mg/dL (8.5-10.1); Chloride 107 mmol/L (98-107); Cholesterol 188 mg/dL (200); Creatinine, Serum 0.95 mg/dL (0.70-1.30); EST Glomerular Filtration Rate 80 mL/min (>60); Est Glom Filt Rate - Afr Amer 97 mL/min (>60); Globulin 3.9 g/dL (2.2-4.2); Glucose 93 mg/dL (74-106); High Density Lipoprotein 41 mg/dL; Potassium 3.9 mmol/L (3.5-5.1); Protein, Total 7.5 g/dL (6.4-8.2); Sodium Level 138 mmol/L (136-145); Triglycerides 221 mg/dL; Very Low Density Lipoprotein 44 mg/dL (5-40)
== END | disposition home or self-care (01) ==
LOC: MFPLAB 10:19
PROVIDERS: PCP Family Medicine; Visit Provider Family Medicine
DX: I25.10 Atherosclerotic heart disease of native coronary artery without angina pectoris (principal); E55.9 Vitamin D deficiency, unspecified
CPT/HCPCS: 36415; 80053; 80061; 82306; 85025

== ENCOUNTER → 2023-06-02 | Outpatient (CLI) | payer MEDICARE, SELFPAY ==
--- NOTE | 2023-06-02 16:25 | RAD_ITS ---
INDICATION: copd exacerbation EXAMINATION/TECHNIQUE: X-RAY - XR Chest 2 Views COMPARISON: December 23, 2022 FINDINGS: LINES/DEVICES: None. LUNGS: The lungs are hyperinflated. There is no focal consolidation. No pneumothorax. MEDIASTINUM AND CARDIOVASCULAR STRUCTURES: Cardiac silhouette not enlarged. Central airways and mediastinal contour are unremarkable. BONES AND SOFT TISSUES: Unremarkable. RAD/Chest PA and Lateral IMPRESSION: Hyperinflated lungs suggestive of COPD. Electronically Signed: Karyna Robert MD at 18:02 EST ,
== END | disposition home or self-care (01) ==
LOC: MTRAD 16:23
PROVIDERS: PCP Family Medicine; Referring Provider Family Medicine; Visit Provider Family Medicine
DX: J44.1 Chronic obstructive pulmonary disease with (acute) exacerbation (principal)
CPT/HCPCS: 71046

== ENCOUNTER → 2023-06-20 | Outpatient (CLI) | payer MEDICARE, SELFPAY ==
--- NOTE | 2023-06-20 08:42 | CT_ITS ---
INDICATION: PULMONARY NODULE EXAMINATION: CT CHEST WITHOUT CONTRAST - CT Chest W/O Contrast Injection TECHNIQUE: Helically acquired images were obtained of the chest. A radiation dose optimization technique was used for this scan. IV Contrast dosage and agent: None. RADIATION DOSAGE (If Supplied By Facility): CTDIvol = ( 10.62 ) mGy, DLP = ( 387.39 ) mGycm COMPARISON: FINDINGS: LUNGS, PLEURA AND LARGE AIRWAYS: Right upper lobe pleural-based nodularity measuring 9 x 3 mm, image 45 series 4. Peripheral right middle lobe nodule measuring 7 mm, image 92 series 4. Basilar atelectasis. No pleural effusion or thickening. No pneumothorax. THYROID: No thyroid lesions. HEART AND PERICARDIUM: Heart size is normal. No pericardial effusion. CORONARY ARTERIES: Coronary artery calcification VESSELS: Borderline ascending aorta measuring 4 cm. MEDIASTINUM AND MAU: No mediastinal or hilar adenopathy. Esophagus is unremarkable. No hiatal hernia. UPPER ABDOMEN: No acute pathology. BONES: No suspicious lytic or blastic abnormality. CT/Chest without Contrast IMPRESSION: Right pulmonary nodules as noted. No prior studies available for comparison. Follow-up in 3-4 months if needed. Borderline ascending aorta. Electronically Signed: Joe Nicole DO at 19:51 EDT Reading Location ID and State: [facility] / [place] Tel [phone], Service support ,
== END | disposition home or self-care (01) ==
LOC: CT 08:38
PROVIDERS: PCP Family Medicine; Referring Provider Internal Medicine Pulmonary Disease; Visit Provider Internal Medicine Pulmonary Disease
DX: R91.1 Solitary pulmonary nodule (principal)
CPT/HCPCS: 71250

== ENCOUNTER → 2023-06-23 | Outpatient (CLI) | payer MEDICARE, SELFPAY ==
[2023-06-23 10:46] LABS: PSA,Total- Diagnostic 0.19 ng/mL (0.0-4.0)
== END | disposition home or self-care (01) ==
LOC: LAB 09:19
PROVIDERS: PCP Family Medicine; Referring Provider Urology; Visit Provider Urology
DX: C61 Malignant neoplasm of prostate (principal)
CPT/HCPCS: 36415; 84153

== ENCOUNTER → 2023-08-11 | Outpatient (CLI) | payer MEDICARE, SELFPAY ==
[2023-08-11 09:58] LABS: Absolute Lymphocyte Count 1.58 X10^3/uL (0.83-4.51); Absolute Neutrophil Count 6.8 X10^3/uL (2.0-7.7); Basophil# 0.09 X10^3/uL; Eosinophil# 0.18 X10^3/uL; Eosinophils% 1.9 % (0-5); Hematocrit 40.7 % (40-54); Hemoglobin 13.2 g/dL (13.0-16.5); Lymphocyte # 1.58 X10^3/ul (0.83-4.51); Lymphocyte % 16.8 % (19-41); Mean Corp Hgb Conc 32.4 g/dL (32-36); Mean Corpuscular Hgb 31.4 pg (27.0-32.0); Mean Corpuscular Volume 96.9 fL (80-94); Mean Platelet Vol. 9.5 fl (6.2-12.0); Monocyte# 0.74 X10^3/uL; Monocyte% 7.8 % (0-10); NRBC Flagged by Analyzer 0 % (0-5); Neutrophil # 6.79 X10^3/uL (2.7-7.7); Platelet Count 342 K/mm3 (150-450); RBC Distribution Width CV 13.6 % (11.6-14.6); RBC Distribution Width SD 48.6 fl (35.1-43.9); White Blood Count 9.4 K/mm3 (4.4-11.0)
[2023-08-11 10:30] LABS: Vitamin B12 1108 pg/mL (211-911); Vitamin D,25 Hydroxy 57.6 ng/mL
[2023-08-11 12:07] LABS: ALB/GLOB Ratio 0.9 RATIO (0.9-2.4); AST(SGOT) 39 U/L (15-37); Alanine Aminotransfer ALT/SGPT 36 U/L (16-61); Albumin, Serum 3.6 g/dL (3.2-5.0); Alkaline Phosphatase 61 U/L (45-117); Anion Gap 4 (5-15); BUN 26 mg/dL (7-18); BUN/Creat Ratio 27.7 RATIO (10-20); Calcium,Total 9.6 mg/dL (8.5-10.1); Chloride 108 mmol/L (98-107); Cholesterol 174 mg/dL (200); Creatinine, Serum 0.94 mg/dL (0.70-1.30); EST Glomerular Filtration Rate 81 mL/min (>60); Est Glom Filt Rate - Afr Amer 98 mL/min (>60); Ferritin 202 ng/mL (26-388); Folates, (Folic Acid) > 100.00 ng/mL (3.1-55.4); Glucose 98 mg/dL (74-106); High Density Lipoprotein 40 mg/dL; Iron 95 ug/dL (65-175); Iron Binding Capacity,Total 315 ug/dL (250-450); Protein, Total 7.6 g/dL (6.4-8.2); Sodium Level 138 mmol/L (136-145); Triglycerides 191 mg/dL; Very Low Density Lipoprotein 38 mg/dL (5-40)
== END | disposition home or self-care (01) ==
LOC: MFPLAB 09:09
PROVIDERS: PCP Family Medicine; Visit Provider Family Medicine
DX: I25.10 Atherosclerotic heart disease of native coronary artery without angina pectoris (principal); D64.9 Anemia, unspecified; E55.9 Vitamin D deficiency, unspecified
CPT/HCPCS: 36415; 80053; 80061; 82306; 82607; 82728; 82746; 83540; 83550; 85025

== ENCOUNTER → 2023-11-25 | Outpatient (CLI) | payer MEDICARE, SELFPAY ==
[2023-11-25 10:16] LABS: Absolute Lymphocyte Count 1.61 X10^3/uL (0.83-4.51); Absolute Neutrophil Count 5.8 X10^3/uL (2.0-7.7); Basophil# 0.09 X10^3/uL; Basophil% 1.1 % (0-1); Eosinophil# 0.14 X10^3/uL; Eosinophils% 1.7 % (0-5); Hematocrit 41.1 % (40-54); Lymphocyte # 1.61 X10^3/ul (0.83-4.51); Lymphocyte % 19.3 % (19-41); Mean Corp Hgb Conc 31.6 g/dL (32-36); Mean Corpuscular Hgb 30.4 pg (27.0-32.0); Mean Corpuscular Volume 96.3 fL (80-94); Mean Platelet Vol. 9.9 fl (6.2-12.0); Monocyte# 0.73 X10^3/uL; Monocyte% 8.7 % (0-10); NRBC Flagged by Analyzer 0 % (0-5); Neutrophil # 5.76 X10^3/uL (2.7-7.7); Neutrophil % 68.8 % (47-70); Platelet Count 276 K/mm3 (150-450); RBC Distribution Width CV 14.2 % (11.6-14.6); RBC Distribution Width SD 49.8 fl (35.1-43.9); Red Blood Count 4.27 M/mm3 (4.6-6.2); White Blood Count 8.4 K/mm3 (4.4-11.0)
[2023-11-25 10:32] LABS: Vitamin B12 1447 pg/mL (211-911); Vitamin D,25 Hydroxy 58.5 ng/mL
[2023-11-25 11:08] LABS: ALB/GLOB Ratio 0.9 RATIO (0.9-2.4); AST(SGOT) 31 U/L (15-37); Alanine Aminotransfer ALT/SGPT 27 U/L (16-61); Albumin, Serum 3.6 g/dL (3.2-5.0); Alkaline Phosphatase 63 U/L (45-117); Anion Gap 5 (5-15); BUN 27 mg/dL (7-18); BUN/Creat Ratio 26.7 RATIO (10-20); Calcium,Total 9.6 mg/dL (8.5-10.1); Chloride 107 mmol/L (98-107); Cholesterol 183 mg/dL (200); Creatinine, Serum 1.01 mg/dL (0.70-1.30); EST Glomerular Filtration Rate 74 mL/min (>60); Est Glom Filt Rate - Afr Amer 90 mL/min (>60); Globulin 3.9 g/dL (2.2-4.2); Glucose 84 mg/dL (74-106); High Density Lipoprotein 42 mg/dL; Potassium 4.1 mmol/L (3.5-5.1); Protein, Total 7.5 g/dL (6.4-8.2); Sodium Level 139 mmol/L (136-145); T4 Free Direct 0.98 ng/dL (0.76-1.46); Triglycerides 197 mg/dL; Very Low Density Lipoprotein 39 mg/dL (5-40)
== END | disposition home or self-care (01) ==
LOC: MFPLAB 09:15
PROVIDERS: PCP Family Medicine; Visit Provider Family Medicine
DX: E55.9 Vitamin D deficiency, unspecified (principal); R53.83 Other fatigue; I25.10 Atherosclerotic heart disease of native coronary artery without angina pectoris
CPT/HCPCS: 36415; 80053; 80061; 82306; 82607; 84439; 84443; 85025

== ENCOUNTER → 2023-12-01 | Outpatient (CLI) | payer MEDICARE, SELFPAY ==
--- NOTE | 2023-12-01 16:10 | CT_ITS ---
ACR Level 3 findings have been noted. An addendum which confirms receipt of the report will follow. STUDY: CT ABDOMEN AND PELVIS WITH CONTRAST REASON FOR EXAM: Male, 88 years old. , LLQ pain RADIATION DOSAGE (If Supplied By Facility): CTDIvol = ( 17.35 ) mGy, DLP = ( 880.11 ) mGycm TECHNIQUE: Transaxial images were obtained from the dome of the diaphragm to the symphysis pubis with oral contrast. 100mL Isovue-[id number] was administered. Sagittal and coronal images were reconstructed. Individualized dose optimization techniques were used for this CT. COMPARISON: None. FINDINGS: There is lower lung atelectasis. There are coronary artery calcifications. Normal liver. Normal gallbladder and extrahepatic biliary system. Normal spleen. Normal pancreas. Normal bilateral adrenal glands. There is 2.0 cm cyst of the right kidney. There is 1.6 cm cyst of the left kidney. Normal visualized stomach. Normal small intestine. There is diverticulosis, with thickening of the sigmoid colon wall, and left lower quadrant pericolonic inflammation changes consistent with acute diverticulitis. The appendix is visualized and appears normal. There is diffuse atherosclerotic calcification of the abdominal aorta, without a demonstrated aneurysm. Normal inferior vena cava. Normal retroperitoneum. Normal urinary bladder. There is no free fluid in the abdomen or pelvis. There is postoperative change of the lower abdominal wall. There are diffuse degenerative changes of the visualized lumbar spine. CT/Abdomen/Pelvis WITH Contrast IMPRESSION: Sigmoid diverticulitis. No obstruction or abscess. Electronically Signed: Rudy Prather MD at 20:32 EDT ,
== END | disposition home or self-care (01) ==
LOC: CT 16:00
PROVIDERS: PCP Family Medicine; Referring Provider Family Medicine; Visit Provider Family Medicine
DX: R10.32 Left lower quadrant pain (principal)
CPT/HCPCS: 74177; Q9967

== ENCOUNTER → 2023-12-11 | Outpatient (CLI) | payer MEDICARE, SELFPAY ==
--- NOTE | 2023-12-11 07:55 | CT_ITS ---
HISTORY: nodule. TECHNIQUE: Helically acquired images were obtained of the chest without contrast. A radiation dose optimization technique was used for this scan. 833 images. COMPARISON: None. FINDINGS: LARGE AIRWAYS: Patent. LUNGS: Hyperinflated with emphysema. 2 mm right upper lobe nodule or scar again seen. Stable lobulated 9 mm pleural-based right middle lobe nodule. Chronic mild bilateral lower lobe scarring and bronchiectasis with bronchial wall thickening and mucous plugging in the left lower lobe. PLEURA: No pneumothorax or significant pleural effusion. HEART/PERICARDIUM: Heart within normal limits in size with coronary artery calcification. No pericardial effusion. VESSELS: Stable 3.9 cm ectasia of the ascending aorta. MEDIASTINUM/MAU: No pathologically enlarged adenopathy. UPPER ABDOMEN: Colonic diverticulosis observed. BONES: Degenerative change. CT/Chest without Contrast IMPRESSION: No significant interval change in size of lobulated 9 mm right middle lobe pulmonary nodule, on a background of emphysema. Recommend follow-up based on clinical factors such as patient''s condition and age. Mild inflammation with plugging in the left lower lobe. Lung-RADS category 3: Consider [address] follow-up. Electronically Signed: Alicja Cortés MD at 11:04 EDT ,
== END | disposition home or self-care (01) ==
LOC: CT 07:49
PROVIDERS: PCP Family Medicine; Referring Provider Family Medicine; Visit Provider Family Medicine
DX: R91.1 Solitary pulmonary nodule (principal)
CPT/HCPCS: 71250

== ENCOUNTER → 2024-01-25 | Outpatient (CLI) | payer MEDICARE, SELFPAY ==
[2024-01-25 15:26] LABS: PSA,Total- Diagnostic 2.17 ng/mL (0.0-4.0)
== END | disposition home or self-care (01) ==
LOC: LAB 14:36
PROVIDERS: PCP Family Medicine; Referring Provider Urology; Visit Provider Urology
DX: C61 Malignant neoplasm of prostate (principal)
CPT/HCPCS: 36415; 84153

== ENCOUNTER → 2024-02-19 | Outpatient (CLI) | payer MEDICARE, SELFPAY ==
[2024-02-19 12:29] LABS: Vitamin D,25 Hydroxy 49.2 ng/mL
[2024-02-19 12:34] LABS: Absolute Lymphocyte Count 1.84 X10^3/uL (0.83-4.51); Absolute Neutrophil Count 6.5 X10^3/uL (2.0-7.7); Basophil# 0.09 X10^3/uL; Eosinophil# 0.12 X10^3/uL; Eosinophils% 1.3 % (0-5); Hematocrit 40.7 % (40-54); Hemoglobin 12.9 g/dL (13.0-16.5); Lymphocyte # 1.84 X10^3/ul (0.83-4.51); Lymphocyte % 19.9 % (19-41); Mean Corp Hgb Conc 31.7 g/dL (32-36); Mean Corpuscular Hgb 31.2 pg (27.0-32.0); Mean Corpuscular Volume 98.3 fL (80-94); Mean Platelet Vol. 9.9 fl (6.2-12.0); Monocyte# 0.64 X10^3/uL; Monocyte% 6.9 % (0-10); NRBC Flagged by Analyzer 0 % (0-5); Neutrophil # 6.52 X10^3/uL (2.7-7.7); Neutrophil % 70.6 % (47-70); Platelet Count 312 K/mm3 (150-450); RBC Distribution Width CV 13.9 % (11.6-14.6); RBC Distribution Width SD 50.3 fl (35.1-43.9); Red Blood Count 4.14 M/mm3 (4.6-6.2); White Blood Count 9.2 K/mm3 (4.4-11.0)
[2024-02-19 12:42] LABS: AST(SGOT) 29 U/L (15-37); Alanine Aminotransfer ALT/SGPT 33 U/L (16-61); Albumin, Serum 3.8 g/dL (3.2-5.0); Alkaline Phosphatase 60 U/L (45-117); Anion Gap 6 (5-15); BUN 27 mg/dL (7-18); BUN/Creat Ratio 29.5 RATIO (10-20); Calcium,Total 10.3 mg/dL (8.5-10.1); Chloride 106 mmol/L (98-107); Cholesterol 186 mg/dL (200); Creatinine, Serum 0.91 mg/dL (0.70-1.30); EST Glomerular Filtration Rate 83 mL/min (>60); Est Glom Filt Rate - Afr Amer 101 mL/min (>60); Globulin 3.9 g/dL (2.2-4.2); Glucose 94 mg/dL (74-106); High Density Lipoprotein 40 mg/dL; Potassium 4.1 mmol/L (3.5-5.1); Protein, Total 7.7 g/dL (6.4-8.2); Sodium Level 139 mmol/L (136-145); Triglycerides 235 mg/dL; Very Low Density Lipoprotein 47 mg/dL (5-40)
== END | disposition home or self-care (01) ==
LOC: MFPLAB 09:44
PROVIDERS: PCP Family Medicine; Visit Provider Family Medicine
DX: E55.9 Vitamin D deficiency, unspecified (principal); I25.10 Atherosclerotic heart disease of native coronary artery without angina pectoris
CPT/HCPCS: 36415; 80053; 80061; 82306; 85025

== ENCOUNTER → 2024-06-17 | Outpatient (CLI) | payer MEDICARE, SELFPAY ==
[2024-06-17 10:20] LABS: Absolute Lymphocyte Count 1.66 X10^3/uL (0.83-4.51); Absolute Neutrophil Count 7.9 X10^3/uL (2.0-7.7); Basophil# 0.07 X10^3/uL; Basophil% 0.7 % (0-1); Eosinophil# 0.18 X10^3/uL; Eosinophils% 1.7 % (0-5); Hematocrit 38.9 % (40-54); Hemoglobin 12.8 g/dL (13.0-16.5); Lymphocyte # 1.66 X10^3/ul (0.83-4.51); Lymphocyte % 15.5 % (19-41); Mean Corp Hgb Conc 32.9 g/dL (32-36); Mean Corpuscular Hgb 32.2 pg (27.0-32.0); Mean Platelet Vol. 9.9 fl (6.2-12.0); Monocyte# 0.88 X10^3/uL; Monocyte% 8.2 % (0-10); NRBC Flagged by Analyzer 0 % (0-5); Neutrophil # 7.87 X10^3/uL (2.7-7.7); Neutrophil % 73.3 % (47-70); Platelet Count 311 K/mm3 (150-450); RBC Distribution Width CV 13.5 % (11.6-14.6); RBC Distribution Width SD 48.5 fl (35.1-43.9); Red Blood Count 3.97 M/mm3 (4.6-6.2); White Blood Count 10.7 K/mm3 (4.4-11.0)
[2024-06-17 10:53] LABS: ALB/GLOB Ratio 1.2 RATIO (0.9-2.4); AST(SGOT) 29 U/L (<=37); Alanine Aminotransfer ALT/SGPT 15 U/L (<=46); Albumin, Serum 4.3 g/dL (3.4-4.8); Alkaline Phosphatase 63 U/L (40-129); Anion Gap 13 (5-15); BUN 26 mg/dL (4-19); BUN/Creat Ratio 25.9 RATIO (10-20); Carbon Dioxide 23.5 mmol/L (21.0-32.0); Chloride 102 mmol/L (98-108); Cholesterol 202 mg/dL (<=200); Creatinine, Serum 1.02 mg/dL (0.70-1.20); EST Glomerular Filtration Rate 71 (>60); Globulin 3.5 g/dL (2.2-4.2); Glucose 100 mg/dL (70-99); High Density Lipoprotein 46 mg/dL; Low Density Lipoprotein Calc. 128 mg/dL; Potassium 4.2 mmol/L (3.3-5.1); Protein, Total 7.9 g/dL (5.9-8.4); Sodium Level 139 mmol/L (133-145); Triglycerides 140 mg/dL; Very Low Density Lipoprotein 28 mg/dL (5-40); Vitamin D,25 Hydroxy 47.6 ng/mL (30-100); cholesterol:hdl ratio screen 4.35
== END | disposition home or self-care (01) ==
LOC: MFPLAB 09:05
PROVIDERS: PCP Family Medicine; Referring Provider Family Medicine; Visit Provider Family Medicine
DX: I25.10 Atherosclerotic heart disease of native coronary artery without angina pectoris (principal); E55.9 Vitamin D deficiency, unspecified
CPT/HCPCS: 36415; 80053; 80061; 82306; 85025

== ENCOUNTER → 2024-07-15 | Outpatient (CLI) | payer MEDICARE, SELFPAY ==
--- NOTE | 2024-07-15 14:55 | CT_ITS ---
PROCEDURE: CHEST WITHOUT CONTRAST 07/15/2024 REASON FOR EXAM: LUNG NODULE TECHNIQUE: Chest CT without contrast. Coronal and Sagittal reconstruction series were provided. One or more dose reduction techniques were used (e.g., Automated exposure control, adjustment of the mA and/or kV according to patient size, use of iterative reconstruction technique COMPARISON: None FINDINGS: Heart size is within normal limits. Moderate three-vessel coronary artery calcifications. No significant pericardial effusion. Ectasia of the ascending thoracic aorta measuring 4.1 cm. Normal caliber pulmonary arteries. No suspicious adenopathy. No significant findings in the visualized upper abdomen. Superficial soft tissues are within normal limits. Central airways are patent. Mild emphysema. Mild reticular opacities at the posterior lung bases, greater on the left. No confluent airspace consolidation, pleural effusion or pneumothorax. 8 mm subpleural nodule at the anterior right middle lobe. 7 mm subpleural ovoid nodule at the anterior right upper lobe. No other significant pulmonary nodule or mass. No acute osseous abnormality. Degenerative changes of the spine. CT/Chest without Contrast IMPRESSION: 1. 8 mm and 7 mm subpleural nodules in the right middle and upper lobes as abov e. Recommend six-month chest CT follow-up per Fleischner criteria. Comparison to prior imaging would also prove helpful. 2. Mild reticular opacities at the posterior lung bases, greater on the left wh ich may relate to chronic fibrosis or less likely an acute infectious/inflammatory process. 3. Coronary artery disease. 4. Ectasia of the ascending thoracic aorta. Reading Location: [facility]
== END | disposition home or self-care (01) ==
LOC: CT 14:52
PROVIDERS: PCP Family Medicine; Referring Provider Family Medicine; Visit Provider Family Medicine
DX: R91.1 Solitary pulmonary nodule (principal)
CPT/HCPCS: 71250

== ENCOUNTER → 2024-11-08 | Outpatient (CLI) | payer MEDICARE, SELFPAY ==
--- NOTE | 2024-11-08 08:18 | MRI_ITS ---
PROCEDURE: BRAIN W/WO CONTRAST 11/08/2024 REASON FOR EXAM: LOSS OF BALANCE, HISTORY OF STROKE, CONCUSSION TECHNIQUE: BRAIN W/WO CONTRAST Multiplanar and multisequence images were obtained. CONTRAST: Clariscan VOLUME: 13 mL COMPARISON: CT brain without contrast, 01/10/2020. MRI brain with and without contrast, 09/14/2019. FINDINGS: There is diffuse cerebral atrophy with concomitant ventriculomegaly. There is gliosis and encephalomalacia in the right frontal lobe, posteriorly, consistent with a chronic cortical infarction. There is nonspecific gliosis, extending into the subcortical white matter of both parietal lobes, posteriorly. There are superimposed punctate foci of abnormal periventricular and subcortical white matter signal, throughout both cerebral hemispheres, consistent with chronic ischemic white matter disease. There is a chronic lacunar infarction in the periventricular white matter of the right frontal lobe. There is a normal sulcal pattern and gyral configuration. There is no evidence of acute intracranial hemorrhage or infarction. The munguia-white differentiation is well preserved. There is no evidence of restricted diffusion. The basilar cisterns are normal. There are normal flow voids demonstrated in the recognized intracranial vessels. The cerebellum and brainstem are unremarkable. The cerebellar pontine angles are normal. The craniovertebral junction is normal. The sella and suprasellar regions are normal. The orbits and retro-orbital regions are unremarkable. There is a left Agger Nasi cell with nasal septal deviation to the right. Status post bilateral FESS. There is no significant paranasal sinus disease. The mastoid air cells are clear. There is normal bone marrow signal in the skull base and calvarium. MRI/Brain W/WO Contrast IMPRESSION: 1. Small chronic cortical infarction in the right frontal lobe, in the distrib ution of the middle cerebral artery. 2. Gliosis in both parietal lobes, posteriorly. This is more extensive than o n the prior exam. 3. Cerebral atrophy. 4. Other findings as noted Reading Location: [id number]
== END | disposition home or self-care (01) ==
LOC: MRI 07:58
PROVIDERS: PCP Family Medicine; Referring Provider Family Medicine; Visit Provider Family Medicine
DX: R26.89 Other abnormalities of gait and mobility (principal); Z86.73 Personal history of transient ischemic attack (TIA), and cerebral infarction without residual deficits
CPT/HCPCS: 70553; A9575

== ENCOUNTER → 2024-11-29 | Outpatient (CLI) | payer MEDICARE, SELFPAY ==
[2024-11-29 15:17] LABS: Hematocrit 38.2 % (40-54); Hemoglobin 12.4 g/dL (13.0-16.5); Immature Granulocytes Count 0.030 X10^3/uL (0.0-0.0); Mean Corp Hgb Conc 32.5 g/dL (32-36); Mean Corpuscular Volume 97.9 fL (80-94); Mean Platelet Vol. 10.1 fl (6.2-12.0); NRBC Flagged by Analyzer 0 % (0-5); Platelet Count 254 K/mm3 (150-450); RBC Distribution Width CV 14.0 % (11.6-14.6); RBC Distribution Width SD 50.7 fl (35.1-43.9); Red Blood Count 3.90 M/mm3 (4.6-6.2); White Blood Count 8.1 K/mm3 (4.4-11.0)
[2024-11-29 15:50] LABS: AST(SGOT) 32 U/L (<=37); Alanine Aminotransfer ALT/SGPT 16 U/L (<=46); Albumin, Serum 4.1 g/dL (3.4-4.8); Alkaline Phosphatase 65 U/L (40-129); Anion Gap 13 (5-15); BUN 26 mg/dL (4-19); BUN/Creat Ratio 26.9 RATIO (10-20); Calcium,Total 10.0 mg/dL (7.6-11.0); Carbon Dioxide 25.0 mmol/L (21.0-32.0); Chloride 100 mmol/L (98-108); Cholesterol 172 mg/dL (<=200); Globulin 3.6 g/dL (2.2-4.2); Glucose 96 mg/dL (70-99); Low Density Lipoprotein Calc. 82 mg/dL; Potassium 4.2 mmol/L (3.3-5.1); Triglycerides 262 mg/dL; Very Low Density Lipoprotein 52 mg/dL (5-40); cholesterol:hdl ratio screen 4.53
[2024-11-29 16:18] LABS: Vitamin B12 3938 pg/mL (180-914); Vitamin D,25 Hydroxy 52.6 ng/mL (30-100)
== END | disposition home or self-care (01) ==
LOC: MFPLAB 11:44
PROVIDERS: PCP Family Medicine; Referring Provider Family Medicine; Visit Provider Family Medicine
DX: I25.10 Atherosclerotic heart disease of native coronary artery without angina pectoris (principal); E55.9 Vitamin D deficiency, unspecified
CPT/HCPCS: 36415; 80053; 80061; 82306; 82607; 84443; 85025